=== PATIENT | female | born 1935 | race Caucasian/White ===

== ENCOUNTER 2019-11-28 08:53 | Outpatient (REF) | payer MEDICARE, SELFPAY ==
[2019-11-28 10:42] LABS: Alanine Aminotransferase 25 U/L (0-31); Albumin Level 4.2 g/dL (3.5-5.0); Alkaline Phosphatase 78 U/L (39-117); Anion Gap 12 (12-20); Aspartate Amino Transferase 22 U/L (5-31); Bilirubin Total 1.2 mg/dL (0.0-1.0); Blood Urea Nitrogen 13 mg/dL (9-16); Calcium 8.9 mg/dL (8.4-10.2); Carbon Dioxide 32 mmol/L (22-29); Chloride 104 mmol/L (96-108); Cholesterol 218 mg/dL; Estimated Glomerular Filt Rate > 60; Glucose Random 94 mg/dL (60-115); HDL Cholesterol 96 mg/dL; LDL Cholesterol Calculated 111 mg/dl; Potassium 3.8 mmol/l (3.3-5.1); Sodium 144 mmol/L (135-145); Total Protein 6.8 g/dL (6.5-8.0); Triglycerides 57 mg/dL
== END 2019-11-28 08:54 | disposition home or self-care (01) ==
LOC: HO.LAB 08:53
PROVIDERS: PCP Internal Medicine; Visit Provider Internal Medicine
DX: M81.0 Age-related osteoporosis without current pathological fracture (principal); E78.2 Mixed hyperlipidemia; E78.5 Hyperlipidemia, unspecified
CPT/HCPCS: 80053; 80061

== ENCOUNTER 2020-01-16 11:40 | Outpatient (REF) | payer MEDICARE, SELFPAY | END 2020-01-16 11:41 | disposition home or self-care (01) | LOC: HO.HMGCLDS 11:40 | PROVIDERS: PCP Internal Medicine; Visit Provider Internal Medicine | DX: Z20.828 Contact with and (suspected) exposure to other viral communicable diseases (principal) | CPT/HCPCS: C9803; U0003 ==

== ENCOUNTER → 2020-07-03 13:00 | Outpatient (BNVA) | payer MEDICARE, SELFPAY | PROVIDERS: Visit Provider Obstetrics & Gynecology ==

== ENCOUNTER 2020-09-02 11:42 | Outpatient (REF) | payer MEDICARE, SELFPAY ==
--- NOTE | ~2020-09-02 | XR_ITS ---
EXAMINATION: XR LUMBOSACRAL SPINE CLINICAL INFORMATION: Spondylosis without myelopathy or radiculopathy. COMPARISON: Lumbar spine 07/25/2018. TECHNIQUE: Three views of the lumbosacral spine. FINDINGS: There is normal lumbar lordosis. There are old compression fracture deformities L1 and T12 vertebra with cement augmentation. There is loss of L4 superior endplate height similar to previous study. No acute fractures seen. There is no lytic process. There is new loss of T11 vertebra, likely a new compression fracture. No lytic or sclerotic process seen. The sacrum is unremarkable. The paravertebral soft tissues are normal. XR/XR lumbar spine 2-3V IMPRESSION: Likely new T11 compression fracture. Correlate with bone scan. Loss of superior endplate L4 vertebral height is unchanged to old exam 2019. There is interval loss of T12 and L1 vertebral height with cement augmentation.
== END 2020-09-02 11:43 | disposition home or self-care (01) ==
LOC: HO.HMGCX 11:42
PROVIDERS: PCP Internal Medicine; Visit Provider Internal Medicine
DX: Z13.89 Encounter for screening for other disorder (principal)
CPT/HCPCS: 72100

== ENCOUNTER 2020-11-06 08:00 | Outpatient (REF) | payer MEDICARE, SELFPAY ==
[2020-11-06 11:39] LABS: Appearance Urine CLEAR; Color Urine YELLOW; Glucose Urine UA NEG (NEG); Leukocyte Esterase Urine NEG (NEG); Nitrite Urine NEG (NEG); Urine Blood NEG (NEG); Urine Ketones NEG (NEG); Urine Protein NEG (NEG-TRACE)
[2020-11-06 11:43] LABS: Hematocrit 39.2 % (37-47); Hemoglobin 13.1 g/dl (12.0-16.0); Mean Corpuscular HGB Conc 33.4 g/dl (31.0-35.0); Mean Corpuscular Hemoglobin 31.8 pg (27.0-33.0); Mean Corpuscular Volume 95.1 fL (80-98); Mean Platelet Volume 10.3 fL (9.4-12.3); Platelet Count 250 X10*3/uL (160-400); Red Blood Count 4.12 X10*6/uL (4.20-5.50); Red Cell Distribution Width 12.8 % (11.0-16.0); White Blood Count 5.6 X10*3/uL (4.8-10.8)
[2020-11-06 11:55] LABS: RBC Urine 0-2 /HPF (0); Squamous Epithelial Cell Urine 2+ /LPF
[2020-11-06 12:02] LABS: Alanine Aminotransferase 19 U/L (0-31); Albumin Level 4.2 g/dL (3.5-5.0); Alkaline Phosphatase 73 U/L (39-117); Anion Gap 13 (12-20); Aspartate Amino Transferase 23 U/L (5-31); Blood Urea Nitrogen 12 mg/dL (9-16); Calcium 8.6 mg/dL (8.4-10.2); Carbon Dioxide 27 mmol/L (22-29); Chloride 106 mmol/L (96-108); Cholesterol 203 mg/dL; Estimated Glomerular Filt Rate > 60; Glucose Fasting 88 mg/dL (60-99); HDL Cholesterol 87 mg/dL; LDL Cholesterol Calculated 101 mg/dl; Potassium 3.7 mmol/L (3.3-5.1); Sodium 142 mmol/L (135-145); Total Protein 6.8 g/dL (6.5-8.0); Triglycerides 75 mg/dL
[2020-11-06 12:23] LABS: Vitamin D 25-OH Total 45.1 ng/mL (>30)
== END 2020-11-06 08:01 | disposition home or self-care (01) ==
LOC: HO.HMGCLDS 08:00
PROVIDERS: PCP Internal Medicine; Visit Provider Internal Medicine
DX: E78.5 Hyperlipidemia, unspecified (principal); M80.88XA Other osteoporosis with current pathological fracture, vertebra(e), initial encounter for fracture
CPT/HCPCS: 36415; 80053; 80061; 81001; 82306; 85027

== ENCOUNTER 2020-12-17 08:18 | Outpatient (REF) | payer MEDICARE, SELFPAY ==
[2020-12-17 09:13] LABS: Albumin Level 4.1 g/dL (3.5-5.0); Anion Gap 13 (12-20); Blood Urea Nitrogen 13 mg/dL (9-16); Calcium 8.7 mg/dL (8.4-10.2); Carbon Dioxide 27 mmol/L (22-29); Chloride 106 mmol/L (96-108); Estimated Glomerular Filt Rate > 60; Glucose Random 93 mg/dL (60-115); Potassium 4.3 mmol/L (3.3-5.1); Sodium 142 mmol/L (135-145)
[2020-12-17 09:37] LABS: Vitamin D 25-OH Total 42.6 ng/mL (>30)
== END 2020-12-17 08:19 | disposition home or self-care (01) ==
LOC: HO.LAB 08:18
PROVIDERS: Visit Provider Internal Medicine Endocrinology, Diabetes & Metabolism
DX: M81.0 Age-related osteoporosis without current pathological fracture (principal)
CPT/HCPCS: 36415; 80048; 82040; 82306

== ENCOUNTER 2020-12-26 10:00 | Outpatient (RCR) | payer MEDICARE, SELFPAY ==
--- NOTE | 2020-12-04 12:22 | MHC.PT.EP ---
[facility] [place] [facility] [place] [facility] [place] [facility] [address] [place] Aceves [address] [phone] F: [phone] F: [phone] F: [phone] F: [phone] Physical Therapy Plan of Care Date of Evaluation: Date of Surgery: September 2020 Diagnosis: wedge compression fx Assessment: The patient arrived reporting pain in her mid and lower back since having 3 spinal fractures and 3 kyphoplasty's over the last 3 years. She has severe osteoporosis. She has poor sitting posture, and body mechanics. Poor postural muscle strength as well She is an excellent candidate for skilled PT to learn strategies to prevent further injury. She also would benefit from balance training to help reduce future fall risk. She may potentially benefit from a rollator walker in the community to help increase stability. Frequency and Duration: The patient will be seen 2x/week x 4 weeks. Short Term Goals: 1.Pt to able to demonstrate proper sitting posture with the use of a lumbar roll to decrease aggravating factors. 2.Pt to be able to demonstrate proper posture for common leisure activities such as phone/tablet use. 3.For the patient to demonstrate proper upright sitting posture with use of the lumbar roll to improve compliance and carryover. Informatics Consultant Goals: 1. Pt to show improved sitting and sleeping posture to avoid aggravating factors. 2. Pt to have improved neutral spine awareness to avoid further aggravation of pain. 3. Pt to be able to return demonstrate her HEP to improve compliance and carryover. Treatment Plan: Modalities to reduce pain, spasms and effusion. Manual therapy to restore motion and function. Therapeutic exercise to improve strength and flexibility. Neuromuscular re-education for posture and balance. Therapeutic activities to return to functional activities of daily living. Electronically signed by: Aimee Whelan PT DPT Please sign and return to therapist. Thank you for your referral.
== END 2020-12-28 08:00 | disposition home or self-care (01) ==
LOC: HO.PT 10:00
PROVIDERS: PCP Internal Medicine; Visit Provider Internal Medicine
DX: S22.000D Wedge compression fracture of unspecified thoracic vertebra, subsequent encounter for fracture with routine healing (principal)
CPT/HCPCS: 97110; 97112; 97162

== ENCOUNTER 2020-12-26 10:49 | Emergency (ER) | payer MEDICARE, SELFPAY ==
--- NOTE | 2020-12-26 | ECG_ITS ---
Test Reason : SYNCOPE Blood Pressure : / mmHG Vent. Rate : 090 BPM Atrial Rate : 090 BPM P-R Int : 150 ms QRS Dur : 082 ms QT Int : 368 ms P-R-T Axes : 054 -06 053 degrees QTc Int : 450 ms Normal sinus rhythm Nonspecific ST abnormality Lateral leads Abnormal ECG When compared with ECG of 19-JAN-2019 13:26, No significant change was found Referred By: Generic ED Physician Electronically Signed By:NICK JIMENEZ MD
--- NOTE | ~2020-12-26 | CT_ITS ---
EXAMINATION: CT HEAD WITHOUT CONTRAST CLINICAL INFORMATION: Dizziness COMPARISON: CT brain 01/19/2019 TECHNIQUE: Contiguous axial imaging was performed from the skull base to vertex without intravenous administration of contrast. This CT examination was performed using dose optimization techniques as appropriate, variously including the following: *Automated exposure control *Adjustment of mA and/or kV according to patient size (this includes techniques or standardized protocols for targeted exams where dose is matched to indication/reason for exam; i.e. extremities or head) *Use of iterative reconstruction technique DLP: 586 mGy-cm FINDINGS: There is no evidence of acute intracranial hemorrhage or territorial infarction. No abnormal mass effect or midline shift is seen. Koenig to white matter differentiation is well preserved. No extra-axial fluid collections are identified. The lateral ventricles are symmetrical but mildly enlarged. There is no abnormal attenuation within the brain parenchyma. The osseous structures and soft tissues are normal. The mastoid air cells and visualized portions of the paranasal sinuses are well aerated. CT/CT head/brain wo con IMPRESSION: No acute intracranial process seen.
--- NOTE | ~2020-12-26 | XR_ITS ---
EXAMINATION: XR CHEST CLINICAL INFORMATION: Dizziness. COMPARISON: None TECHNIQUE: 2 views of the chest were obtained. FINDINGS: The lungs are well-expanded and clear of acute process. There is increased patchy markings in the right middle lobe likely developing infiltrate, atelectasis or scarring. It is new since 01/19/2019 exam. Heart size and pulmonary vascularity is normal. There is mild acute compression deformity T11 vertebra. There is evidence of previous cement augmentation of T12, L1 and L2 vertebra.. XR/XR chest 2V IMPRESSION: Mild increase patchy opacity right lower lobe question developing infiltrate or atelectasis. There is new acute compression deformity T11 vertebra.
[2020-12-26 10:57] VITALS: BP 216/98; PULSE 89; RESP 17; TEMP 37.1; O2SAT 100; BMI 24.5
--- NOTE | 2020-12-26 11:45 | ED_ITS ---
HPI - General Adult General Chief complaint: Dizziness Stated complaint: high bp light headed Time Seen by Provider: 12/26/20 11:45 Source: patient Mode of arrival: other (From physical therapy) Limitations: no limitations History of Present Illness HPI narrative: 85-year-old female with past medical history of hyperlipidemia, DJD, compression fracture, osteoporosis was brought to emergency department by physical therapy. Patient was in her physical therapy session for her right hip and low back pain. During the exercise patient requested to stop as she was feeling weak and dizzy. When physical therapist checked her blood pressure it was 220 systolic. Patient was reporting to feel dizzy. Patient reports that when she woke up this morning she was feeling fine. Patient reports that she does not take anything for her blood pressure. Patient reports that she only takes citalopram and medication for her cholesterol. Patient reports that she was feeling fine this morning except for her usual aches and pains. Patient denies any chest pain, palpitation, presyncope or syncope. Patient does suffers from an anxiety and she reports that she is worry why is she feeling this way. Patient denies any symptoms of urinary frequency, pain with urination. Onset (ago): hour(s) (Hour and half ago) Location: back and pelvis Quality: aching Pain Consistency: constant Related Data Home Medications Medication Instructions Recorded Confirmed ibuprofen 600 mg tablet 600 mg PO Q8H PRN 12/01/19 09/02/20 lidocaine 5 % topical patch 1 patch TOPICAL DAILY 12/01/19 09/02/20 lorazepam 1 mg tablet 0 mg PO 12/01/19 09/02/20 Previous Rx's Medication Instructions Recorded atorvastatin 10 mg tablet 10 mg PO DAILY #90 tab 08/13/20 citalopram 10 mg tablet 5 mg PO DAILY #90 tab 12/16/20 Allergies Allergy/AdvReac Type Severity Reaction Status Date / Time diclofenac [From ARTHROTEC] Allergy Severe ANXIETY/WEA Verified 12/26/20 10:57 KNESS/CONFU JOSHUA misoprostol [From ARTHROTEC] Allergy Severe ANXIETY/WEA Verified 12/26/20 10:57 KNESS/CONFU JOSHUA sertraline [SERTRALINE] Allergy Severe ANXIETY/WEAKNESS/CONFUSION, Verified 12/26/20 10:57 dizziness tramadol [TRAMADOL] Allergy Severe ANXIETY/CON Verified 12/26/20 10:57 FUSION/WEAK NESS prednisone AdvReac Unknown psychosis Verified 12/26/20 10:57 Review of Systems Review of Systems: Constitutional : No Weight loss, No Fever, No Chills, No Night Sweats, No Fatigue, No Malaise ENT/Mouth : No Hearing loss, No Ear Pain, No Nasal Congestion, No Sinus Pain, No Hoarseness, No sore throat, No Rhinorrhea, No Swallowing Difficulty Eyes: No Eye Pain, No Swelling, No Redness, No Foreign Body, No Discharge, No Vision Changes Cardiovascular : No Chest Pain, No SOB, No Dyspnea on Exertion, No Orthopnea, No Edema, No Palpitations Respiratory : No Cough, No Sputum, No Wheezing, No Smoke Exposure, No Dyspnea Gastrointestinal : No Nausea, No Vomiting, No Diarrhea, No Constipation, No abdominal Pain, No Hematochezia, No Melena Genitourinary : no irregular bleeding, No Dysuria, No Urinary Frequency, No Hematuria, No Urinary Incontinence, No Urgency, No Flank Pain, No Urinary Flow Changes, No Hesitancy Musculoskeletal : joint pain, Myalgias, No Joint Swelling Skin : No Skin Lesions, No rash Neuro : No Weakness, No Numbness, No Paresthesias, No Loss of Consciousness, Dizziness, No Headache Psych : No Anxiety/Panic, No Depression, No SI/HI/AH/VH, No Social Issues, Yes all other systems are reviewed and are negative [facility] [place] Past Medical History Medical History Age related osteoporosis Compression fracture Depression DJD (degenerative joint disease), lumbar GERD (gastroesophageal reflux disease) Hyperlipemia Surgical History H/O kyphoplasty History of thyroid surgery History of total hip replacement Family History Family History Father CVD (cardiovascular disease) Heart disease Mother CVD (cardiovascular disease) Heart disease Maternal Grandfather No problems noted. Maternal Grandmother No problems noted. Paternal Grandfather No problems noted. Paternal Grandmother No problems noted. Brother No problems noted. Daughter No problems noted. Son No problems noted. Social History Social History Housing: House Alcohol intake: never Patient Tobacco Use Status: Never used Tobacco e-Cigarette/Vaping Use: Never Used Use of substances other than those prescribed or required for medical reasons: No Advance Directives: Yes Advance Directives on File: Yes Advance Directives Date on File: 07/03/20 Current occupational status: retired Sexual orientation: Straight/Heterosexual Gender identity: Female Physical Exam Vital Signs: Vital Signs: Last Vital Signs Temp 98.7 F 12/26/20 10:57 Pulse 81 12/26/20 14:03 Resp 18 12/26/20 14:03 BP 187/87 H 12/26/20 14:06 Pulse Ox 100 12/26/20 14:03 Body Mass Index 24.5 Const: General: healthy appearing, no acute distress and well developed Nutritional Appearance: well nourished Orientation/consciousness: patient oriented x3 HENMT: Head: Yes normal to inspection, Yes normocephalic and Yes atraumatic Ears: hearing grossly normal bilaterally, external ears normal and TM's normal bilaterally General nose exam: Normal external nose present and Normal nares present Face and sinus: Yes normal facial exam Mouth: Normal oral and palatal mucosa present Throat: Yes posterior oropharynx normal, Yes tonsils normal and Yes uvula midline Eyes: General: appearance normal, both eyes and all related structures Neck: Neck: Yes normal visual inspection, Yes full ROM and Yes trachea midline Thyroid: Thyroid normal Resp: Effort & Inspection: normal respiratory effort, able to speak in complete sentences, no tracheal deviation and symmetric chest movement Auscultation: clear to auscultation bilaterally Cardio: Jugular venous distension: no JVD Rate: regular rate Rhythm: regular rhythm Heart sounds: S1 normal heart sound present, S2 normal heart sound present, no gallops and no murmurs GI: Inspection: Yes normal to inspection and No distended Palpation (GI): Soft to palpation, not firm, nontender and No hepatosplenomegaly present Auscultation: normal bowel sounds : General: Yes no CVA tenderness Back/Spine/Pelvis: Back: no CVA tenderness Skin: General skin exam: elasticity normal, turgor normal and dry skin Neuro: General: patient oriented x3 Psych: Appearance: grossly normal Mental Status: mental status grossly normal Speech and movement: Normal speech and movement present Affect: normal affect Attitude: cooperative Thought process: Normal thought process present Thought content: Normal thought content present Insight: Good insight present (Psych) Judgement: Good judgement present (Psych) NIH Stroke Scale Internal: Initial- Upon Arrival Level of Consciousness: Alert Level of Consciousness Questions: Answers both questions correctly Level of Consciousness Commands: Performs both tasks correctly Best Gaze: Normal Visual: No visual loss Facial Palsy: Normal Motor Arm (Right): No drift Motor Arm (Left): No drift Motor Leg (Right): No drift Motor Leg (Left): No drift Limb Ataxia: Absent Sensory: Normal Best Language: No aphasia Dysarthia: Normal Extinction and Inattention: No abnormality Score: 0 Course Course Course Narrative: 85-year-old female with past medical history of hyperlipidemia, DJD, lumbar compression fracture, osteoporosis was brought to emergency department by physical therapist. Patient was having physical therapy when she began feeling weak, dizzy. Reported chest pressure. Therapy was stopped and her blood pressure at that time was 220 systolic. Patient reports that she woke up this morning feeling well with no symptoms. Patient drove herself to therapy. Patient denies any presyncope or syncope. Denies any chest pain, pressure, palpitation. Reports to be feeling weak and dizzy. Denies any headache, blurred vision, tingling. Patient is a Upper Sorbian speaking patient and she reports that she was trying to relate to the therapist that she was having pain in her right hip and lower back pain during the therapy. Patient denies any abdominal pain, urinary frequency or urgency. Denies any pain with urination. Patient reports that she has been having good appetite and has been drinking plenty fluids. Upon exam patient has negative NIH scale. EKG reviewed and normal sinus rhythm, rate 90, without ischemia. Patient is alert and oriented x3. Patient appears to be nervous. Will medicate her with lorazepam. Will do CT scan of the head, CBC, CMP, troponin, orthostatics vital signs. Reevaluation(s) Reevaluation #1: Lab work reviewed and negative for any acute findings. Tropon in 4.5, urinalysis normal, CT scan also negative for any acute findings. Reevaluation #2: Patient reports that she has been feeling better. Denies any dizziness, with improvement in her blood pressure without any medications. Patient medicated with ativan and reports to be feeling better. Medical Decision Making Lab Data Result diagrams: 12/26/20 12:07 12/26/20 12:07 Labs: Lab Results 12/26/20 12/26/20 12/26/20 Range/Units 12:07 12:07 12:07 WBC 5.8 (4.8-10.8) X10*3/uL RBC 4.17 L (4.20-5.50) X10*6/uL Hgb 13.2 (12.0-16.0) g/dl Hct 39.1 (37.0-47.0) % MCV 93.8 (80.0-98.0) fL MCH 31.7 (27.0-33.0) pg MCHC 33.8 (31.0-35.0) g/dl RDW 13.2 (11.0-16.0) % Plt Count 216 (160-400) X10*3/uL MPV 9.6 (9.4-12.3) fL Immature Gran % (Auto) 0.2 (0.0-0.4) % Neut % (Auto) 44.4 L (45-73) % Lymph % (Auto) 43.2 H (20-40) % [place] % (Auto) 8.1 (2-11) % Eos % (Auto) 3.6 (0-4) % Baso % (Auto) 0.5 (0-2) % Lymph # (Auto) 2.5 (1.2-4.9) X10*3/uL [place] # (Auto) 0.5 (0.1-1.2) X10*3/uL Eos # (Auto) 0.2 (0.0-0.4) X10*3/uL Baso # (Auto) 0.0 (0.0-0.2) X10*3/uL Abs Immat Gran (auto) 0.01 (0.00-0.03) X10*3/uL Absolute Neuts (auto) 2.6 (2.0-8.3) x10*3/uL Absolute Nucleated RBC 0.000 (0.0-0.012) X10*3/uL Nucleated RBC % (auto) 0.0 (0.0-0.2) /100WBC PT 10.9 (9.9-13.0) SEC INR 1.0 (0.9-1.1) Sodium 141 (135-145) mmol/L Potassium 3.6 (3.3-5.1) mmol/L Chloride 105 (96-108) mmol/L Carbon Dioxide 24 (22-29) mmol/L Anion Gap 16 (12-20) BUN 15 (9-16) mg/dL Creatinine 0.79 (0.5-1.4) mg/dL Estim Creat Clear Calc 43.7 Estimated GFR > 60 Random Glucose 88 (60-115) mg/dL Calcium 9.2 (8.4-10.2) mg/dL Total Bilirubin 1.0 (0.0-1.0) mg/dL AST 28 (5-31) U/L ALT 25 (0-31) U/L Alkaline Phosphatase 70 (39-117) U/L Troponin I High Sens (<3.5-17.0) ng/L Total Protein 7.0 (6.5-8.0) g/dL Albumin 4.3 (3.5-5.0) g/dL Urine Color Urine Appearance Urine pH (5.0-8.0) Ur Specific [place] (1.005-1.025) Urine Protein (NEG-TRACE) MG/DL Urine Glucose (UA) (NEG) MG/DL Urine Ketones (NEG) MG/DL Urine Blood (NEG) Urine Nitrite (NEG) Ur Leukocyte Esterase (NEG) Urine RBC (0) /HPF Urine WBC (0-4) /HPF Ur Squamous Epith Cells /LPF Urine Bacteria /LPF 12/26/20 12/26/20 Range/Units 12:07 12:22 WBC (4.8-10.8) X10*3/uL RBC (4.20-5.50) X10*6/uL Hgb (12.0-16.0) g/dl Hct (37.0-47.0) % MCV (80.0-98.0) fL MCH (27.0-33.0) pg MCHC (31.0-35.0) g/dl RDW (11.0-16.0) % Plt Count (160-400) X10*3/uL MPV (9.4-12.3) fL Immature Gran % (Auto) (0.0-0.4) % Neut % (Auto) (45-73) % Lymph % (Auto) (20-40) % [place] % (Auto) (2-11) % Eos % (Auto) (0-4) % Baso % (Auto) (0-2) % Lymph # (Auto) (1.2-4.9) X10*3/uL [place] # (Auto) (0.1-1.2) X10*3/uL Eos # (Auto) (0.0-0.4) X10*3/uL Baso # (Auto) (0.0-0.2) X10*3/uL Abs Immat Gran (auto) (0.00-0.03) X10*3/uL Absolute Neuts (auto) (2.0-8.3) x10*3/uL Absolute Nucleated RBC (0.0-0.012) X10*3/uL Nucleated RBC % (auto) (0.0-0.2) /100WBC PT (9.9-13.0) SEC INR (0.9-1.1) Sodium (135-145) mmol/L Potassium (3.3-5.1) mmol/L Chloride (96-108) mmol/L Carbon Dioxide (22-29) mmol/L Anion Gap (12-20) BUN (9-16) mg/dL Creatinine (0.5-1.4) mg/dL Estim Creat Clear Calc Estimated GFR Random Glucose (60-115) mg/dL Calcium (8.4-10.2) mg/dL Total Bilirubin (0.0-1.0) mg/dL AST (5-31) U/L ALT (0-31) U/L Alkaline Phosphatase (39-117) U/L Troponin I High Sens 4.5 (<3.5-17.0) ng/L Total Protein (6.5-8.0) g/dL Albumin (3.5-5.0) g/dL Urine Color STRAW Urine Appearance CLEAR Urine pH 7.0 (5.0-8.0) Ur Specific [place] <= 1.005 (1.005-1.025) Urine Protein NEG (NEG-TRACE) MG/DL Urine Glucose (UA) NEG (NEG) MG/DL Urine Ketones NEG (NEG) MG/DL Urine Blood NEG (NEG) Urine Nitrite NEG (NEG) Ur Leukocyte Esterase TRACE H (NEG) Urine RBC 0-2 (0) /HPF Urine WBC 0-2 (0-4) /HPF Ur Squamous Epith Cells 1+ /LPF Urine Bacteria NONE /LPF Imaging Data Chest x-ray: Attestation: I personally reviewed and interpreted this imaging study as follows: Radiologist's impression: FINDINGS: The lungs are well-expanded and clear of acute process. There is increased patchy markings in the right middle lobe likely developing infiltrate, atelectasis or scarring. It is new since 01/19/2019 exam. Heart size and pulmonary vascularity is normal. There is mild acute compression deformity T11 vertebra. There is evidence of previous cement augmentation of T12, L1 and L2 vertebra.. CT scan - head: Attestation: I personally reviewed and interpreted this imaging study as follows: Radiologist's impression: FINDINGS: There is no evidence of acute intracranial hemorrhage or territorial infarction. No abnormal mass effect or midline shift is seen. Koenig to white matter differentiation is well preserved. No extra-axial fluid collections are identified. The lateral ventricles are symmetrical but mildly enlarged. There is no abnormal attenuation within the brain parenchyma. The osseous structures and soft tissues are normal. The mastoid air cells and visualized portions of the paranasal sinuses are well aerated. Discharge Plan Discharge Clinical Impression: Hypertension Qualifiers: Hypertension type: unspecified Qualified Code(s): I10 - Essential (primary) hypertension Benign paroxysmal positional vertigo Qualifiers: Laterality: unspecified laterality Qualified Code(s): H81.10 - Benign paroxysmal vertigo, unspecified ear Patient Disposition: Home, Self-Care Instructions: Hypertension (ED) Additional Instructions: Widzielismy Ciebie dzisiaj michael w trakcie twojej fizjoterapii Czulas zawroty glowy i T woje cisnienie krwi bylo bardzo wysokie. Twoje cisnienie krwi theron jest wysokie na izbie prmarcelc. Francheskaontfloruaj sie z twoim lekarzem w celu kontrolowania cisnienia krkimi. [facility]cic na oddzial ratunkowy, jesli twoje objawy sie pog orsza lub jesli wystapia dodatkowe niepokojace objawy Prescriptions: No Action atorvastatin 10 mg tablet 10 mg PO DAILY Qty: 90 RF: 3 citalopram 10 mg tablet 5 mg PO DAILY Qty: 90 RF: 3 lidocaine 5 % adhesive patch,medicated 1 patch topical DAILY RF: 0 lorazepam 1 mg tablet 0 mg PO RF: 0 ibuprofen 600 mg tablet 600 mg PO Q8H PRNRF: 0 Referrals: Milady Miranda MD [Primary Care Provider] - 2 days Interventions: ED Discharge Assessment Last Done: 12/26/20 15:13 Discharge Date/Time: 12/26/20 15:25
[2020-12-26 12:15] LABS: MANUAL DIFF FLAG NO
[2020-12-26 12:17] LABS: Basophils Percent Auto 0.5 % (0-2); Eosinophils Absolute Auto 0.2 X10*3/uL (0.0-0.4); Eosinophils Percent Auto 3.6 % (0-4); Hematocrit 39.1 % (37.0-47.0); Hemoglobin 13.2 g/dl (12.0-16.0); Imm Gran Abs Auto 0.01 X10*3/uL (0.00-0.03); Imm Gran Pct Auto 0.2 % (0.0-0.4); Lymphocytes Absolute Auto 2.5 X10*3/uL (1.2-4.9); Lymphocytes Percent Auto 43.2 % (20-40); Mean Corpuscular HGB Conc 33.8 g/dl (31.0-35.0); Mean Corpuscular Hemoglobin 31.7 pg (27.0-33.0); Mean Corpuscular Volume 93.8 fL (80.0-98.0); Mean Platelet Volume 9.6 fL (9.4-12.3); Monocytes Absolute Auto 0.5 X10*3/uL (0.1-1.2); Monocytes Percent Auto 8.1 % (2-11); Neutrophils Absolute Auto 2.6 x10*3/uL (2.0-8.3); Neutrophils Percent Auto 44.4 % (45-73); Platelet Count 216 X10*3/uL (160-400); Red Blood Count 4.17 X10*6/uL (4.20-5.50); Red Cell Distribution Width 13.2 % (11.0-16.0); White Blood Count 5.8 X10*3/uL (4.8-10.8)
[2020-12-26 12:18] VITALS: BP 179/95; BP 181/89; PULSE 84; PULSE 85
[2020-12-26] MEDS: 0.9 % Sodium Chloride 500 ML IV (12:19)
[2020-12-26 12:21] VITALS: BP 182/99; PULSE 86
[2020-12-26 12:22] LABS: Prothrombin Time 10.9 SEC (9.9-13.0)
[2020-12-26 12:40] LABS: Appearance Urine CLEAR; Color Urine STRAW; Glucose Urine UA NEG (NEG); Leukocyte Esterase Urine TRACE (NEG); Nitrite Urine NEG (NEG); Specific Gravity - Urine <= 1.005 (1.005-1.025); UACC Culture Trigger YES; Urine Blood NEG (NEG); Urine Ketones NEG (NEG); Urine Protein NEG (NEG-TRACE)
[2020-12-26 12:53] LABS: Alanine Aminotransferase 25 U/L (0-31); Albumin Level 4.3 g/dL (3.5-5.0); Alkaline Phosphatase 70 U/L (39-117); Anion Gap 16 (12-20); Aspartate Amino Transferase 28 U/L (5-31); Blood Urea Nitrogen 15 mg/dL (9-16); Calcium 9.2 mg/dL (8.4-10.2); Carbon Dioxide 24 mmol/L (22-29); Chloride 105 mmol/L (96-108); Creatinine Clr Calc Pharmacy 43.7; Estimated Glomerular Filt Rate > 60; Glucose Random 88 mg/dL (60-115); Potassium 3.6 mmol/L (3.3-5.1); Sodium 141 mmol/L (135-145)
[2020-12-26 12:58] LABS: Troponin-I High Sensitivity 4.5 ng/L (<3.5-17.0)
[2020-12-26] MEDS: LORazepam 0.5 MG TABLET PO (13:10)
[2020-12-26 13:51] LABS: RBC Urine 0-2 /HPF (0); Squamous Epithelial Cell Urine 1+ /LPF; WBC Urine 0-2 /HPF (0-4)
[2020-12-26 14:03] VITALS: BP 204/97; PULSE 81; RESP 18; O2SAT 100
[2020-12-26 14:06] VITALS: BP 187/87
== END 2020-12-26 15:25 | disposition home or self-care (01) ==
PROVIDERS: Nurse Practitioner Family; Emergency Provider Emergency Medicine Emergency Medical Services; PCP Internal Medicine
DX: I10 Essential (primary) hypertension (principal); H81.10 Benign paroxysmal vertigo, unspecified ear; M54.50 Low back pain, unspecified; M25.551 Pain in right hip; E78.5 Hyperlipidemia, unspecified
CPT/HCPCS: 36415; 70450; 71046; 80053; 81001; 84484; 85025; 85610; 87086; 93005; 96360; 99284; 99285

== ENCOUNTER 2021-05-24 05:39 | Emergency (ER) | payer MEDICARE, SELFPAY ==
--- NOTE | ~2021-05-24 | XR_ITS ---
EXAMINATION: XR BILATERAL HIPS WITH AP PELVIS CLINICAL INFORMATION: Fall. Pain. COMPARISON: None TECHNIQUE: AP view of the pelvis and two views of each hip were obtained. FINDINGS: Right total hip arthroplasty. Components in expected positions. No acute fracture or dislocation. Left femoral head is spherical. Small femoral collar and acetabular marginal osteophytes on the left. Pelvic ring intact. Mild bilateral sacroiliac arthrosis. Paraspinal soft tissues unremarkable. XR/XR hip BI w PEL1V IMPRESSION: No acute fracture, dislocation, evidence of hardware failure or complication.
--- NOTE | ~2021-05-24 | XR_ITS ---
EXAMINATION: XR LUMBOSACRAL SPINE CLINICAL INFORMATION: Fall with pain COMPARISON: September 02, 2020 TECHNIQUE: Three views of the lumbosacral spine. FINDINGS: There are old compression fractures involving T12, L1, and L2 with cement augmentation. There is mild scoliosis convex left. There is a superior endplate compression fracture of L4 with approximately 30% loss of height within the mid vertebral body. This was present on previous study of September 02, 2020. There is an approximately 60% loss of height which compression fracture of T11. This was present on study of September 02, 2020. No definite acute fracture is appreciated. Bilateral facet arthropathy is seen L3-S1. No significant spondylolisthesis identified. XR/XR lumbar spine 2-3V IMPRESSION: Multiple stable compression fractures of the lower thoracic spine and lumbar spine. No acute fracture appreciated.
--- NOTE | ~2021-05-24 | CT_ITS ---
EXAMINATION: CT CERVICAL SPINE WITHOUT CONTRAST CLINICAL INFORMATION: Fall with pain COMPARISON: March 30, 2018 TECHNIQUE: CT cervical spine without IV or intrathecal contrast. Coronal and sagittal reconstructions. This CT examination was performed using dose optimization techniques as appropriate, variously including the following: *Automated exposure control *Adjustment of mA and/or kV according to patient size (this includes techniques or standardized protocols for targeted exams where dose is matched to indication/reason for exam; i.e. extremities or head) *Use of iterative reconstruction technique DLP: 294.21 mGy-cm FINDINGS: No abnormal prevertebral soft tissue swelling. Paraspinal muscle fat planes intact. No acute cervical spine fracture is noted. Nodular thyroid gland is present. Calcified granuloma versus broncholith seen within the left upper lobe. Pterygoid plates intact. No significant abnormality of the temporomandibular joints identified. There is degenerative disc disease with some disc space narrowing and endplate irregularity at the C3-C4, C5-C6, and C6-C7 levels. No significant neural foraminal encroachment is seen with mild spurring of the joints of [place] at the C5-C6 and C6-C7 levels bilaterally. CT/CT cervical spine wo con IMPRESSION: No acute cervical spine fracture. Cervical spondylosis as described. Nodular thyroid gland.
--- NOTE | ~2021-05-24 | CT_ITS ---
EXAMINATION: CT HEAD WITHOUT CONTRAST CLINICAL INFORMATION: Fall with headache COMPARISON: December 26, 2020 TECHNIQUE: Contiguous axial imaging was performed from the skull base to vertex without intravenous administration of contrast. This CT examination was performed using dose optimization techniques as appropriate, variously including the following: *Automated exposure control *Adjustment of mA and/or kV according to patient size (this includes techniques or standardized protocols for targeted exams where dose is matched to indication/reason for exam; i.e. extremities or head) *Use of iterative reconstruction technique DLP: 627.09 mGy-cm FINDINGS: There is no evidence of acute intracranial hemorrhage or territorial infarction. No abnormal mass effect or midline shift is seen. Ko[place] to white matter differentiation is well preserved. No extra-axial fluid collections are identified. Mild prominence of ventricles, sulci, and cisterns. There is some periventricular white matter low density seen consistent with microangiopathy. The osseous structures and soft tissues are normal. The mastoid air cells and visualized portions of the paranasal sinuses are well aerated. Small mucous retention cyst seen within the left maxillary sinus. CT/CT head/brain wo con IMPRESSION: No acute intracranial pathology. 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
[2021-05-24 05:57] VITALS: BP 139/52; PULSE 92; RESP 16; TEMP 36.4; O2SAT 99; BMI 24.7
[2021-05-24 06:39] VITALS: PULSE 79; RESP 16; O2SAT 96
--- NOTE | 2021-05-24 06:42 | ED_ITS ---
HPI - Fall General Chief Complaint: Extremity Injury, Lower Stated Complaint: Fall/Hip pain Time Seen by Provider: 05/24/21 05:54 Source: patient Mode of arrival: ambulatory Limitations: no limitations History of Present Illness MD complaint: fall Onset (ago): day(s) (2) Fall from: out of bed Fall witnessed: no Place fall occurred: home Loss of consciousness: unsure Prolonged down time: no Symptoms prior to fall: other (woke up on floot cannot remember) Context: recent illness (had not been feeling well prior to this due to recent gum surgery) Location of injury: head and pelvis Severity: mild Quality: dull and aching Associated symptoms (after fall): headache Related Data Home Medications Medication Instructions Recorded Confirmed ibuprofen 600 mg tablet 600 mg PO Q8H PRN 12/01/19 05/24/21 lidocaine 5 % topical patch 1 patch TOPICAL DAILY 12/01/19 05/24/21 amoxicillin 500 mg capsule 4 cap PO ONCE 05/24/21 05/24/21 hydrocodone 5 mg-acetaminophen 325 1 tab PO Q6H PRN 05/24/21 05/24/21 mg tablet Previous Rx's Medication Instructions Recorded atorvastatin 10 mg tablet 10 mg PO DAILY #90 tab 08/13/20 citalopram 10 mg tablet 5 mg PO DAILY #90 tab 12/16/20 amlodipine 5 mg tablet 5 mg PO DAILY #90 tab 03/25/21 lidocaine 4 % topical patch 1 patch TOPICAL DAILY PRN #10 ea 05/24/21 Allergies Allergy/AdvReac Type Severity Reaction Status Date / Time diclofenac [From ARTHROTEC] Allergy Severe ANXIETY/WEA Verified 05/13/21 10:52 KNESS/CONFU JOSHUA misoprostol [From ARTHROTEC] Allergy Severe ANXIETY/WEA Verified 05/13/21 10:52 KNESS/CONFU JSOHUA sertraline [SERTRALINE] Allergy Severe ANXIETY/WEAKNESS/CONFUSION, Verified 05/13/21 10:52 dizziness tramadol [TRAMADOL] Allergy Severe ANXIETY/CON Verified 05/13/21 10:52 FUSION/WEAK NESS prednisone AdvReac Unknown psychosis Verified 05/13/21 10:52 Review of Systems Review of Systems: Constitutional : No Fever, No Chills ENT/Mouth : No Ear Pain, No Hoarseness, No sore throat Eyes: No Eye Pain, No Swelling, No Redness, No Foreign Body Cardiovascular : No Chest Pain, No SOB Respiratory : No Cough, No Dyspnea Gastrointestinal : No Nausea, No Vomiting, No Diarrhea, No abdominal Pain Genitourinary : No Dysuria, No Hematuria Musculoskeletal : positive joint pain, No Myalgias, No Joint Swelling Skin : No Skin lacerations, No rash Neuro : No Weakness, No Numbness, No Loss of Consciousness, No Dizziness, pos Headache Psych : No Anxiety/Panic, No Depression Heme/Lymph: no easy bruising, no Lymphadenopathy Endocrine : No Polyuria, No Polydipsia All other systems reviewed and are negative [facility] Past Medical History Attestation statement: The following information was validated with the patient. Medical History Age related osteoporosis Compression fracture Depression DJD (degenerative joint disease), lumbar GERD (gastroesophageal reflux disease) HTN (hypertension) Hyperlipemia Vitamin D deficiency Surgical History H/O kyphoplasty History of thyroid surgery History of total hip replacement Family History Family History Father CVD (cardiovascular disease) Heart disease Mother CVD (cardiovascular disease) Heart disease Maternal Grandfather No problems noted. Maternal Grandmother No problems noted. Paternal Grandfather No problems noted. Paternal Grandmother No problems noted. Brother No problems noted. Daughter No problems noted. Son No problems noted. Social History Social History Housing: House Alcohol intake: never Patient Tobacco Use Status: Never used Tobacco e-Cigarette/Vaping Use: Never Used Advance Directives: Yes Advance Directives on File: Yes Advance Directives Date on File: 07/03/20 Current occupational status: retired Sexual orientation: Straight/Heterosexual Gender identity: Female Cognitive needs: No Hearing needs: No Vision needs: No Physical Exam Vital Signs: Vital Signs: Last Vital Signs Temp 97.6 F 05/24/21 05:57 Pulse 79 05/24/21 06:39 Resp 16 05/24/21 06:39 BP 139/52 L 05/24/21 05:57 Pulse Ox 96 05/24/21 06:39 BMI result Body Mass Index 24.7 Appearance: Alert. Oriented X3. No acute distress. Eyes: Pupils equal, round and reactive to light. ENT: Pharynx normal. Neck: Normal inspection. Neck supple. CVS: Normal heart rate and rhythm. Pulses normal. Respiratory: No respiratory distress. Breath sounds normal. Abdomen: Soft and non-tender. Skin: Skin warm and dry. Normal skin color. Normal skin turgor. Extremities: No lower extremity edema. R hip upper above iliac crest c/o pain to palpiation no hematoma noted Neuro: Oriented X 3. No motor deficit. No sensory deficit. Course Course Course Narrative: negative workup at this time no acute findings, stable for DC will DC home with supportive care MDM - Fall MDM Narrative Medical decision making narrative: 86 yo female with hx of HTN, HLD, DJD, s/p R hip replacement states she was sleeping two nights ago and next thing she knows she was awake on the floor with R hip pain - she is not on blood thinners she notes her R hip is painful and she can use the walker but it hurts. She has a mild headache. Denies CP/SOB. At this time given age will obtain basic labs, EKG, CT head/cspine. Xrays of R hip and lumbar spine. She is refusing PO medications. Lab Data Result diagrams: 05/24/21 07:12 05/24/21 07:12 Labs: Lab Results 05/24/21 05/24/21 05/24/21 Range/Units 07:12 07:12 07:12 WBC 5.6 (4.8-10.8) X10*3/uL RBC 3.97 L (4.20-5.50) X10*6/uL Hgb 12.7 (12.0-16.0) g/dl Hct 37.2 (37.0-47.0) % MCV 93.7 (80.0-98.0) fL MCH 32.0 (27.0-33.0) pg MCHC 34.1 (31.0-35.0) g/dl RDW 12.8 (11.0-16.0) % Plt Count 191 (160-400) X10*3/uL MPV 9.7 (9.4-12.3) fL Immature Gran % (Auto) 0.2 (0.0-0.4) % Neut % (Auto) 61.3 (45-73) % Lymph % (Auto) 20.5 (20-40) % [place] % (Auto) 12.9 H (2-11) % Eos % (Auto) 4.7 H (0-4) % Baso % (Auto) 0.4 (0-2) % Lymph # (Auto) 1.1 L (1.2-4.9) X10*3/uL [place] # (Auto) 0.7 (0.1-1.2) X10*3/uL Eos # (Auto) 0.3 (0.0-0.4) X10*3/uL Baso # (Auto) 0.0 (0.0-0.2) X10*3/uL Abs Immat Gran (auto) 0.01 (0.00-0.03) X10*3/uL Absolute Neuts (auto) 3.4 (2.0-8.3) x10*3/uL Absolute Nucleated RBC 0.000 (0.0-0.012) X10*3/uL Nucleated RBC % (auto) 0.0 (0.0-0.2) /100WBC Sodium 142 (135-145) mmol/L Potassium 4.2 (3.3-5.1) mmol/L Chloride 106 (96-108) mmol/L Carbon Dioxide 25 (22-29) mmol/L Anion Gap 15 (12-20) BUN 12 (9-16) mg/dL Creatinine 0.72 (0.5-1.4) mg/dL Estim Creat Clear Calc 47.2 Estimated GFR > 60 Random Glucose 95 (60-115) mg/dL Calcium 9.6 (8.4-10.2) mg/dL Magnesium 2.0 (1.6-2.6) mg/dL Total Bilirubin 1.2 H (0.0-1.0) mg/dL Direct Bilirubin 0.4 (0.0-0.5) mg/dL AST 22 (5-31) U/L ALT 19 (0-31) U/L Alkaline Phosphatase 63 (39-117) U/L Total Creatine Kinase 90 (26-140) U/L Troponin I High Sens 3.7 (<3.5-17.0) ng/L Total Protein 6.7 (6.5-8.0) g/dL Albumin 4.0 (3.5-5.0) g/dL ECG Data Attestation: I personally reviewed and interpreted this ECG as follows: ECG interpretation date: 05/24/21 ECG interpretation time: 07:10 Interpretation: Rate: 76 Rhythm: NSR [place]: normal Normal P waves. Normal [place]. Normal QRS complex. poor R wave progression ST T wave : normal no LIZET qTC: normal prior studies: no acute ischemia The study has been interpreted contemporaneously by me. . Discharge Plan Discharge Clinical Impression: Fall Qualifiers: Encounter type: initial encounter Qualified Code(s): W19.XXXA - Unspecified fall, initial encounter Acute hip pain Qualifiers: Laterality: right Qualified Code(s): M25.551 - Pain in right hip Patient Disposition: Home, Self-Care Instructions: Arthralgia (ED), Fall Prevention (ED), Hip Pain (ED) Additional Instructions: return to ED for any worsening symptoms or concerns FINDINGS: There are old compression fractures involving T12, L1, and L2 with cement augmentation. There is mild scoliosis convex left. There is a superior endplate compression fracture of L4 with approximately 30% loss of height within the mid vertebral body. This was present on previous study of September 02, 2020. There is an approximately 60% loss of height which compression fracture of T11. This was present on study of September 02, 2020. No definite acute fracture is appreciated. Bilateral facet arthropathy is seen L3-S1. No significant spondylolisthesis identified. XR/XR lumbar spine 2-3V IMPRESSION: Multiple stable compression fractures of the lower thoracic spine and lumbar spine. ? No acute fracture appreciated. Right total hip arthroplasty. Components in expected positions. No acute fracture or dislocation. Left femoral head is spherical. Small femoral collar and acetabular marginal osteophytes on the left. Pelvic ring intact. Mild bilateral sacroiliac arthrosis. Paraspinal soft tissues unremarkable. XR/XR hip BI w PEL1V IMPRESSION: No acute fracture, dislocation, evidence of hardware failure or complication. Prescriptions: New lidocaine 4 % adhesive patch,medicated 1 patch topical DAILY PRN (Reason: pain) Qty: 10 0RF Rx Instructions: may leave on for up to 12 hrs No Action atorvastatin 10 mg tablet 10 mg PO DAILY Qty: 90 3RF citalopram 10 mg tablet 5 mg PO DAILY Qty: 90 3RF amlodipine 5 mg tablet 5 mg PO DAILY Qty: 90 3RF hydrocodone-acetaminophen 5-325 mg tablet 1 tab PO Q6H PRN (Reason: Pain) 0RF amoxicillin 500 mg capsule 4 cap PO ONCE 0RF lidocaine 5 % adhesive patch,medicated 1 patch topical DAILY 0RF ibuprofen 600 mg tablet 600 mg PO Q8H PRN (Reason: Pain) 0RF Referrals: Milady Miranda MD [Primary Care Provider] - 2 days
--- NOTE | 2021-05-24 06:42 | PC.NURSE ---
Addendum entered by Giovanni Harrison 05/24/21 07:00: percocet, not oxycodone Original Note: pt states she had a dental procedure recently where she had 2 implants on the right side of her mouth. pt was prescribed oxycodone for the pain. pt reports taking pain medication prior to bed 2 nights ago, and woke up on the ground, unsure of how she got on the ground. c/o generalized headache and rt hip pain , unable to tolerate weight bearing
--- NOTE | 2021-05-24 06:50 | ECG_ITS ---
Test Reason : FALL Blood Pressure : / mmHG Vent. Rate : 076 BPM Atrial Rate : 076 BPM P-R Int : 150 ms QRS Dur : 080 ms QT Int : 404 ms P-R-T Axes : 076 -04 060 degrees QTc Int : 454 ms Normal sinus rhythm Possible Anterior infarct , age undetermined Abnormal ECG When compared with ECG of 26-DEC-2020 11:25, No significant change was found Referred By: Arti Wiggins Electronically Signed By:Inocencio Mosquera
[2021-05-24 07:15] LABS: MANUAL DIFF FLAG NO
[2021-05-24 07:18] LABS: Basophils Percent Auto 0.4 % (0-2); Eosinophils Absolute Auto 0.3 X10*3/uL (0.0-0.4); Eosinophils Percent Auto 4.7 % (0-4); Hematocrit 37.2 % (37.0-47.0); Hemoglobin 12.7 g/dl (12.0-16.0); Imm Gran Abs Auto 0.01 X10*3/uL (0.00-0.03); Imm Gran Pct Auto 0.2 % (0.0-0.4); Lymphocytes Absolute Auto 1.1 X10*3/uL (1.2-4.9); Lymphocytes Percent Auto 20.5 % (20-40); Mean Corpuscular HGB Conc 34.1 g/dl (31.0-35.0); Mean Corpuscular Volume 93.7 fL (80.0-98.0); Mean Platelet Volume 9.7 fL (9.4-12.3); Monocytes Absolute Auto 0.7 X10*3/uL (0.1-1.2); Monocytes Percent Auto 12.9 % (2-11); Neutrophils Absolute Auto 3.4 x10*3/uL (2.0-8.3); Neutrophils Percent Auto 61.3 % (45-73); Platelet Count 191 X10*3/uL (160-400); Red Blood Count 3.97 X10*6/uL (4.20-5.50); Red Cell Distribution Width 12.8 % (11.0-16.0); White Blood Count 5.6 X10*3/uL (4.8-10.8)
[2021-05-24 07:38] LABS: Troponin-I High Sensitivity 3.7 ng/L (<3.5-17.0)
[2021-05-24 07:54] LABS: Alanine Aminotransferase 19 U/L (0-31); Alkaline Phosphatase 63 U/L (39-117); Anion Gap 15 (12-20); Aspartate Amino Transferase 22 U/L (5-31); Bilirubin Direct 0.4 mg/dL (0.0-0.5); Bilirubin Total 1.2 mg/dL (0.0-1.0); Blood Urea Nitrogen 12 mg/dL (9-16); Calcium 9.6 mg/dL (8.4-10.2); Carbon Dioxide 25 mmol/L (22-29); Chloride 106 mmol/L (96-108); Creatinine Clr Calc Pharmacy 47.2; Estimated Glomerular Filt Rate > 60; Glucose Random 95 mg/dL (60-115); Potassium 4.2 mmol/L (3.3-5.1); Sodium 142 mmol/L (135-145); Total Protein 6.7 g/dL (6.5-8.0)
== END 2021-05-24 08:56 | disposition home or self-care (01) ==
PROVIDERS: Emergency Provider Emergency Medicine; PCP Internal Medicine
DX: M25.551 Pain in right hip (principal); R51.9 Headache, unspecified; I10 Essential (primary) hypertension; Z91.81 History of falling; Z96.641 Presence of right artificial hip joint
CPT/HCPCS: 36415; 70450; 72100; 72125; 73521; 80048; 80076; 82550; 83735; 84484; 85025; 93005; 99284

== ENCOUNTER 2021-07-08 06:08 | Emergency (ER) | payer MEDICARE, SELFPAY ==
[2021-07-08] VITALS (9 sets, daily range): BP systolic 106–175; BP diastolic 61–97; PULSE 79–96; RESP 15–19; TEMP 36.5–37.2; O2SAT 92–100; BMI 24.5
--- NOTE | 2021-07-08 | ECG_ITS ---
Test Reason : CHEST PAIN Blood Pressure : / mmHG Vent. Rate : 087 BPM Atrial Rate : 087 BPM P-R Int : 160 ms QRS Dur : 080 ms QT Int : 374 ms P-R-T Axes : 063 006 046 degrees QTc Int : 450 ms Normal sinus rhythm Normal ECG When compared with ECG of 24-MAY-2021 06:57, No significant change was found Referred By: Generic ED Physician Electronically Signed By:SARATH JORDAN MD
--- NOTE | ~2021-07-08 | XR_ITS ---
EXAMINATION: XR CHEST CLINICAL INFORMATION: Chest pressure. COMPARISON: X-ray dated 12/26/2020. TECHNIQUE: Frontal view of the chest was obtained. FINDINGS: The cardiomediastinal silhouette is normal. Minimal patchy density in the right lower lung may be artifactually related to overlapping osseous and vascular structures versus subsegmental atelectasis. No consolidative airspace opacities are otherwise seen. There is chronic blunting of the right costophrenic sulcus. Evidence of prior vertebral body augmentation again noted. No acute osseous abnormality is otherwise seen. There are mid thoracic compression fracture deformities as well, better seen on the prior study. XR/XR chest 1V IMPRESSION: Minimal hazy density in the right lower lung which may be artifactual or reflect subsegmental atelectasis. Blunting of the right costophrenic sulcus which was evident on prior imaging and appears chronic, possibly due to pleural thickening or a trace effusion. Prior vertebral body augmentation. Additional midthoracic compression fractures better assessed on prior imaging. The possibility of a new thoracic vertebral body compression fracture cannot be ruled out on the basis of this limited AP portable examination.
--- NOTE | ~2021-07-08 | CT_ITS ---
EXAMINATION: CT LUMBAR SPINE WITHOUT CONTRAST CLINICAL INFORMATION: Low back pain. COMPARISON: MRI dated 06/06/2021. TECHNIQUE: Multidetector helical imaging acquired in the axial plane with generation of reformatted acquisitions. This CT examination was performed using dose optimization techniques as appropriate, variously including the following: *Automated exposure control *Adjustment of mA and/or kV according to patient size (this includes techniques or standardized protocols for targeted exams where dose is matched to indication/reason for exam; i.e. extremities or head) *Use of iterative reconstruction technique DLP; 352 mGy-cm FINDINGS: The patient is status post previous vertebral body augmentation with chronic compression fracture deformities at the T12, L1, and L2 levels. Chronic bony retropulsion again evident at the L1 level distorting the ventral thecal sac. Multilevel vacuum disc phenomenon noted. There is a severe chronic compression deformity which was also seen on prior MR imaging at the T11 level. An additional [id number] chronic superior endplate compression fracture at the L4 level was also previously seen. Bony demineralization evident. No additional new compression fractures identified. There is a leftward curvature of the lumbar spine. Pseudoarticulation of L5 to the sacrum evident on the left side with moderate degenerative changes at the interface demonstrating marginal sclerosis and vacuum phenomenon. There is a mild anterolisthesis at the L3-L4 level which is stable. The paraspinal soft tissues appear normal. Multilevel degenerative disc disease and facet arthropathy present with mild central canal stenosis at the T12-L1 level. Mild central canal stenosis also evident at the L1-L2 level. There is [id number] central canal stenosis at the L3-L4 level. Multilevel foraminal narrowing is unchanged, most significant on the left side at the L4-L5 and L5-S1 levels. Chronic arachnoid adhesions within empty-appearing thecal sac evident on the prior MRI study at the L5-S1 levels. There are subsegmental atelectatic changes at the lung bases. Heterogeneous sclerosis in the right aspect of the sacrum is presumably due to the chronic sequelae of a prior right sacral insufficiency fracture, seen on the previous MRI exam. CT/CT lumbar spine wo con IMPRESSION: Relatively stable multilevel compression fractures, scoliotic curvature, and moderate spondylosis, status post vertebral body augmentation at the T12, L1, and L2 levels. Heterogeneous sclerosis in the right sacral ala at the site of a previously seen insufficiency fracture on the MR study from 06/06/2021.
--- NOTE | 2021-07-08 06:38 | ED.CHESTPAIN ---
HPI - Chest Pain General Chief Complaint: General Medical Stated Complaint: Multiple Complants Time Seen by Provider: 07/08/21 06:37 Source: patient Mode of arrival: EMS Limitations: no limitations History of Present Illness HPI narrative: 86 yo female hx of compression fractures, HTN, HLD, osteoporosis - MRI in may R sacral ala insufficiency fracture diffuse neuraforaminal stenosis L 1- S1 comes in with 6 weeks of low back pain mostly on L, then developed vague dull chest pressure last night with some mild shortness of breath. Taking motrin for back pain with no relief. Back pain made worse with walking. No b/b incontinence no saddle anesthesia no new trauma. Pain radiates left back down to left leg - has known disc disease and left sided neuroforaminal stenosis with L 5 nerve root compression on MRI 06/06 MD complaint: chest pain (low back pain on left side) Onset (ago): week(s) (6 weeks back pain, chest pressure last night before bed) Timing of current episode: constant Prior episodes: Yes Onset: during rest and during exertion Pain location: substernal Pain radiation: none Severity: mild Quality: heaviness Relieving factors: nothing Exacerbating factors: exertion (back pain worse with walking, chest pain is just there) Associated symptoms: dyspnea Treatment prior to arrival: other (motrin) Related Data Home Medications Medication Instructions Recorded Confirmed cholecalciferol (vitamin D3) 25 25 mcg PO DAILY 07/08/21 07/08/21 mcg (1,000 unit) tablet ibuprofen 200 mg tablet 400 mg PO Q6H PRN 07/08/21 07/08/21 clrjusrmzykt-bsfijmua-epprhx tablet 1 tab PO DAILY 07/08/21 07/08/21 Previous Rx's Medication Instructions Recorded atorvastatin 10 mg tablet 10 mg PO DAILY #90 tab 08/13/20 citalopram 10 mg tablet 5 mg PO DAILY #90 tab 12/16/20 amlodipine 5 mg tablet 5 mg PO DAILY #90 tab 03/25/21 lidocaine 4 % topical patch 1 patch TOPICAL DAILY PRN #10 ea 05/24/21 lidocaine 5 % topical patch 1 patch TOPICAL DAILY #30 ea 07/08/21 Allergies Allergy/AdvReac Type Severity Reaction Status Date / Time diclofenac [From ARTHROTEC] Allergy Severe ANXIETY/WEA Verified 06/05/21 14:46 KNESS/CONFU JOSHUA misoprostol [From ARTHROTEC] Allergy Severe ANXIETY/WEA Verified 06/05/21 14:46 KNESS/CONFU JOSHUA sertraline [SERTRALINE] Allergy Severe ANXIETY/WEAKNESS/CONFUSION, Verified 06/05/21 14:46 dizziness tramadol [TRAMADOL] Allergy Severe ANXIETY/CON Verified 06/05/21 14:46 FUSION/WEAK NESS prednisone AdvReac Unknown psychosis Verified 06/05/21 14:46 Review of Systems Review of Systems: Constitutional : No Weight loss, No Fever, No Chills, ENT/Mouth : No Hearing loss, No Ear Pain, No Nasal Congestion, No Sinus Pain, No Hoarseness, No sore throat, No Rhinorrhea, No Swallowing Difficulty Cardiovascular : pos Chest Pain, pos SOB Respiratory : No Cough, No Dyspnea Gastrointestinal : No Nausea, No Vomiting, No Diarrhea, No abdominal Pain, No Hematochezia, No Melena Genitourinary : No Dysuria, No Urinary Frequency, No Hematuria, No Urinary Incontinence, Musculoskeletal : positive back pain Skin : No Skin Lesions, No rash Neuro : No Weakness, No Numbness, No Paresthesias, no loss of bowel or bladder incontinence, no saddle anesthesia All other systems reviewed and are negative PMFSH Past Medical History Attestation statement: The following information was validated with the patient. Medical History Acute right hip pain Age related osteoporosis Compression deformity of vertebra Compression fracture Depression DJD (degenerative joint disease), lumbar GERD (gastroesophageal reflux disease) HTN (hypertension) Hyperlipemia Status post fall Vitamin D deficiency Surgical History H/O kyphoplasty History of thyroid surgery History of total hip replacement Family History Family History Father CVD (cardiovascular disease) Heart disease Mother CVD (cardiovascular disease) Heart disease Maternal Grandfather No problems noted. Maternal Grandmother No problems noted. Paternal Grandfather No problems noted. Paternal Grandmother No problems noted. Brother No problems noted. Daughter No problems noted. Son No problems noted. Social History Social History Housing: House Alcohol intake: never Patient Tobacco Use Status: Never used Tobacco e-Cigarette/Vaping Use: Never Used Advance Directives: Yes Advance Directives on File: Yes Advance Directives Date on File: 07/08/21 Current occupational status: retired Sexual orientation: Straight/Heterosexual Gender identity: Female Cognitive needs: No Hearing needs: No Vision needs: No Physical Exam Vital Signs: Vital Signs: Last Vital Signs Temp 97.9 F 07/08/21 16:00 Pulse 86 07/08/21 16:00 Resp 16 07/08/21 16:00 BP 163/79 H 07/08/21 16:00 Pulse Ox 97 07/08/21 16:00 BMI result Body Mass Index 24.5 Appearance: Alert. Oriented X3. No acute distress. Eyes: Pupils equal, round and reactive to light. ENT: Pharynx normal. Neck: Normal inspection. Neck supple. CVS: Normal heart rate and rhythm. Pulses normal. Respiratory: No respiratory distress. Breath sounds normal. Abdomen: Soft and nontender. Back: ttp along left lower lumbar ttp Skin: Skin warm and dry. Normal skin color. Normal skin turgor. Extremities: No lower extremity edema. No calf ttp Neuro: Oriented X 3. No motor deficit. No sensory deficit. Course Course Course Narrative: no new fractures - sacral insufficiency fracture healing two trop flat x 2 with atypical chest pain and symptoms > 6 hours, feels better with oral oxycodone stable for DC at this time long discussion with daughter about pain control - discussed CT scan done today showing healing R sacral insufficiency fracture, also symptoms consistent with prior MRI 06/06 which was reviewed by the patient's pain management doctor showing foraminal stenosis and compression of L5 nerve root, patient should see pain management given her intolerance of medications - she has an orthopedic doctor she sees and a pain management doctor she sees so she has options for non narcotics and possible surgical interventions. patient now states that she cannot manage with this pain, she is moving her legs up and down without issue in the bed. Will offer PT/CM to assess her mobility. Up and to the bathroom with walker. Patient placed in physician observation at 1124am. The indication for observation is that the patient needs more time for CM to assist with STR placement given concerns of back pain pain med use and concerns for falls at home. At this time the patient is well developed well nourished, lungs clear, CV RRR, abd nontender, neuro is intact. Patient prefers [facility]. Physician observation ended at 7pm. Patient seen and cleared by PT/CM. Plan is to follow up as outpatient.. NAD, lungs clear, CV RRR, Abd nontender, Neuro intact. Disposition is for [facility] sent with oxycodone Rx MDM - Chest Pain MDM Narrative Medical decision making narrative: 86 yo female hx of compression fractures, HTN, HLD, osteoporosis - MRI in may R sacral ala insufficiency fracture diffuse neuraforaminal stenosis L 1- S1 comes in with low back pain but no CE symptoms not responding to motrin will obtain CT lumbar spine PO oxycodone. At this time also c/o mild chest pressure will obtain EKG and troponin x 2, has no hypoxia or signs of DVT it is not pleuritic to suggest PE. Lab Data Result diagrams: 07/08/21 06:41 07/08/21 06:41 Labs: Lab Results 07/08/21 07/08/21 07/08/21 Range/Units 06:41 06:41 06:41 WBC 5.2 (4.8-10.8) X10*3/uL RBC 3.82 L (4.20-5.50) X10*6/uL Hgb 12.1 (12.0-16.0) g/dl Hct 35.7 L (37.0-47.0) % MCV 93.5 (80.0-98.0) fL MCH 31.7 (27.0-33.0) pg MCHC 33.9 (31.0-35.0) g/dl RDW 13.3 (11.0-16.0) % Plt Count 256 D (160-400) X10*3/uL MPV 9.3 L (9.4-12.3) fL Immature Gran % (Auto) 0.2 (0.0-0.4) % Neut % (Auto) 52.5 (45-73) % Lymph % (Auto) 28.6 (20-40) % [place] % (Auto) 10.8 (2-11) % Eos % (Auto) 7.3 H (0-4) % Baso % (Auto) 0.6 (0-2) % Lymph # (Auto) 1.5 (1.2-4.9) X10*3/uL [place] # (Auto) 0.6 (0.1-1.2) X10*3/uL Eos # (Auto) 0.4 (0.0-0.4) X10*3/uL Baso # (Auto) 0.0 (0.0-0.2) X10*3/uL Abs Immat Gran (auto) 0.01 (0.00-0.03) X10*3/uL Absolute Neuts (auto) 2.7 (2.0-8.3) x10*3/uL Absolute Nucleated RBC 0.000 (0.0-0.012) X10*3/uL Nucleated RBC % (auto) 0.0 (0.0-0.2) /100WBC Sodium 141 (135-145) mmol/L Potassium 4.2 (3.3-5.1) mmol/L Chloride 108 (96-108) mmol/L Carbon Dioxide 24 (22-29) mmol/L Anion Gap 13 (12-20) BUN 15 (9-16) mg/dL Creatinine 0.77 (0.5-1.4) mg/dL Estim Creat Clear Calc 44.0 Estimated GFR > 60 Random Glucose 98 (60-115) mg/dL Calcium 9.1 (8.4-10.2) mg/dL Total Bilirubin 0.8 (0.0-1.0) mg/dL AST 24 (5-31) U/L ALT 20 (0-31) U/L Alkaline Phosphatase 110 D (39-117) U/L Troponin I High Sens 3.6 (<3.5-17.0) ng/L Total Protein 6.8 (6.5-8.0) g/dL Albumin 4.0 (3.5-5.0) g/dL Urine Color Urine Appearance Urine pH (5.0-8.0) Ur Specific [place] (1.005-1.025) Urine Protein (NEG-TRACE) MG/DL Urine Glucose (UA) (NEG) MG/DL Urine Ketones (NEG) MG/DL Urine Blood (NEG) Urine Nitrite (NEG) Ur Leukocyte Esterase (NEG) COVID-19 (EDGAR) (Negative) COVID-19 Clin Com 05/31/22 05/31/22 05/31/22 Range/Units 08:41 08:41 10:27 WBC (4.8-10.8) X10*3/uL RBC (4.20-5.50) X10*6/uL Hgb (12.0-16.0) g/dl Hct (37.0-47.0) % MCV (80.0-98.0) fL MCH (27.0-33.0) pg MCHC (31.0-35.0) g/dl RDW (11.0-16.0) % Plt Count (160-400) X10*3/uL MPV (9.4-12.3) fL Immature Gran % (Auto) (0.0-0.4) % Neut % (Auto) (45-73) % Lymph % (Auto) (20-40) % [place] % (Auto) (2-11) % Eos % (Auto) (0-4) % Baso % (Auto) (0-2) % Lymph # (Auto) (1.2-4.9) X10*3/uL [place] # (Auto) (0.1-1.2) X10*3/uL Eos # (Auto) (0.0-0.4) X10*3/uL Baso # (Auto) (0.0-0.2) X10*3/uL Abs Immat Gran (auto) (0.00-0.03) X10*3/uL Absolute Neuts (auto) (2.0-8.3) x10*3/uL Absolute Nucleated RBC (0.0-0.012) X10*3/uL Nucleated RBC % (auto) (0.0-0.2) /100WBC Sodium (135-145) mmol/L Potassium (3.3-5.1) mmol/L Chloride (96-108) mmol/L Carbon Dioxide (22-29) mmol/L Anion Gap (12-20) BUN (9-16) mg/dL Creatinine (0.5-1.4) mg/dL Estim Creat Clear Calc Estimated GFR Random Glucose (60-115) mg/dL Calcium (8.4-10.2) mg/dL Total Bilirubin (0.0-1.0) mg/dL AST (5-31) U/L ALT (0-31) U/L Alkaline Phosphatase (39-117) U/L Troponin I High Sens < 3.5 (<3.5-17.0) ng/L Total Protein (6.5-8.0) g/dL Albumin (3.5-5.0) g/dL Urine Color STRAW Urine Appearance CLEAR Urine pH 7.0 (5.0-8.0) Ur Specific [place] <= 1.005 (1.005-1.025) Urine Protein NEG (NEG-TRACE) MG/DL Urine Glucose (UA) NEG (NEG) MG/DL Urine Ketones NEG (NEG) MG/DL Urine Blood NEG (NEG) Urine Nitrite NEG (NEG) Ur Leukocyte Esterase NEG (NEG) COVID-19 (EDGAR) Negative (Negative) COVID-19 Clin Com See Note ECG Data ECG #1: Attestation: I personally reviewed and interpreted this ECG as follows: ECG interpretation date: 07/08/21 ECG interpretation time: 06:38 Interpretation: Rate: 87 Rhythm: NSR [place]: normal Normal P waves. Normal [place]. Normal QRS complex. ST T wave : normal no acute ischemia qTC: normal prior studies: no acute ischemia The study has been interpreted contemporaneously by me. . Discharge Plan Discharge Clinical Impression: Lumbar back pain, Acute left lumbar radiculopathy Chest pain Qualifiers: Chest pain type: precordial pain Qualified Code(s): R07.2 - Precordial pain Patient Disposition: Still a Patient Instructions: Chest Pain (ED), Back Pain (ED) Additional Instructions: return to ED for any worsening symptoms or concerns you should follow up with both your orthopedic and pain management doctors as soon as possible pain today likely due to MRI findings on 06/06/21 - narrowing stenosis of the subarticular zones from T11-S1. Moderate severe neural foraminal stenosis L1-S1. Prominent left extraforaminal osteophyte complex at L5-S1 that abuts the exiting left L5 nerve root. TODAY'S CT scan: Relatively stable multilevel compression fractures, scoliotic curvature, and moderate spondylosis, status post vertebral body augmentation at the T12, L1, and L2 levels. Heterogeneous sclerosis in the right sacral ala at the site of a previously seen insufficiency fracture on the MR study from 06/06/2021. Prescriptions: New lidocaine 5 % adhesive patch,medicated 1 patch topical DAILY Qty: 30 0RF Rx Instructions: leave on most painful area for up to 12 hrs No [facility] atorvastatin 10 mg tablet 10 mg PO DAILY Qty: 90 3RF citalopram 10 mg tablet 5 mg PO DAILY Qty: 90 3RF amlodipine 5 mg tablet 5 mg PO DAILY Qty: 90 3RF lidocaine 4 % adhesive patch,medicated 1 patch topical DAILY PRN (Reason: pain) Qty: 10 0RF Rx Instructions: may leave on for up to 12 hrs Centrum Silver Tablet 1 tab PO DAILY 0RF cholecalciferol (vitamin D3) 25 mcg (1,000 unit) Tablet 25 mcg PO DAILY 0RF ibuprofen 200 mg Tablet 400 mg PO Q6H PRN (Reason: Pain) 0RF Referrals: [facility] [Outside] Physician,Unknown J [Physician] - 2 days (primary care doctor - follow up physical therapy but also referral to pain management clinic for other modalities)
[2021-07-08 06:45] LABS: MANUAL DIFF FLAG NO
[2021-07-08 06:49] LABS: Basophils Percent Auto 0.6 % (0-2); Eosinophils Absolute Auto 0.4 X10*3/uL (0.0-0.4); Eosinophils Percent Auto 7.3 % (0-4); Hematocrit 35.7 % (37.0-47.0); Hemoglobin 12.1 g/dl (12.0-16.0); Imm Gran Abs Auto 0.01 X10*3/uL (0.00-0.03); Imm Gran Pct Auto 0.2 % (0.0-0.4); Lymphocytes Absolute Auto 1.5 X10*3/uL (1.2-4.9); Lymphocytes Percent Auto 28.6 % (20-40); Mean Corpuscular HGB Conc 33.9 g/dl (31.0-35.0); Mean Corpuscular Hemoglobin 31.7 pg (27.0-33.0); Mean Corpuscular Volume 93.5 fL (80.0-98.0); Mean Platelet Volume 9.3 fL (9.4-12.3); Monocytes Absolute Auto 0.6 X10*3/uL (0.1-1.2); Monocytes Percent Auto 10.8 % (2-11); Neutrophils Absolute Auto 2.7 x10*3/uL (2.0-8.3); Neutrophils Percent Auto 52.5 % (45-73); Platelet Count 256 X10*3/uL (160-400); Red Blood Count 3.82 X10*6/uL (4.20-5.50); Red Cell Distribution Width 13.3 % (11.0-16.0); White Blood Count 5.2 X10*3/uL (4.8-10.8)
[2021-07-08] MEDS: Lidocaine 4 % Patch ADH..PATCH 1 PATCH TRANSDERMA (07:08)
[2021-07-08] MEDS: oxyCODONE HCl Immed Release 5 MG TABLET PO (07:08)
[2021-07-08] MEDS: Ondansetron ODT 4 MG TAB.RAPDIS TRANSLINGU (07:08)
[2021-07-08 07:12] LABS: Alanine Aminotransferase 20 U/L (0-31); Alkaline Phosphatase 110 U/L (39-117); Anion Gap 13 (12-20); Aspartate Amino Transferase 24 U/L (5-31); Bilirubin Total 0.8 mg/dL (0.0-1.0); Blood Urea Nitrogen 15 mg/dL (9-16); Calcium 9.1 mg/dL (8.4-10.2); Carbon Dioxide 24 mmol/L (22-29); Chloride 108 mmol/L (96-108); Estimated Glomerular Filt Rate > 60; Glucose Random 98 mg/dL (60-115); Potassium 4.2 mmol/L (3.3-5.1); Sodium 141 mmol/L (135-145); Total Protein 6.8 g/dL (6.5-8.0)
[2021-07-08 07:13] LABS: Troponin-I High Sensitivity 3.6 ng/L (<3.5-17.0)
--- NOTE | 2021-07-08 07:14 | PC.NURSE ---
medicated for low back pain radiating to r leg, sr on moniotr , no cp, steady gait w walker to bathroom, aware now that she needs ua
[2021-07-08 08:49] LABS: Appearance Urine CLEAR; Color Urine STRAW; Glucose Urine UA NEG (NEG); Leukocyte Esterase Urine NEG (NEG); Nitrite Urine NEG (NEG); Specific Gravity - Urine <= 1.005 (1.005-1.025); Urine Blood NEG (NEG); Urine Ketones NEG (NEG); Urine Protein NEG (NEG-TRACE)
[2021-07-08 09:16] LABS: Troponin-I High Sensitivity < 3.5 ng/L (<3.5-17.0)
--- NOTE | 2021-07-08 10:04 | PC.NURSE ---
pt does not feel capable of returning home, feels unsafe, md and case management informed , i spoke w the pt daughter and she is agreeable with the plan to do pt eval and look into additional services or snf placement
[2021-07-08] MEDS: Acetaminophen 325 MG TABLET 650 MG PO (10:17)
[2021-07-08 10:50] LABS: COVID-19 Test Negative (Negative); IDNOW Serial# 9DB6401D
--- NOTE | 2021-07-08 13:34 | PHA.MEDREC ---
Pharmacy Consult ? Medication Reconciliation Pharmacy has completed the medication reconciliation. Patient confirmed all medications. Audra Nichols, AustinD
--- NOTE | 2021-07-08 14:40 | MHC.CM.ED ---
Addendum entered by Apple Elias 07/08/21 16:14: [facility] doesn't have a bed to offer. [facility] does. Patient accepts bed at [facility]. Patient will have dinner here and then transfer to [facility] via BLS at 7pm. Patient, friend Carleen, and Dr Wiggins aware. Original Note: Received case management consult from Dr Wiggins. Patient came to ER due to back pain. Patient has history of multiple back issues. Patient has a PCP and has been seen by pain management. Physical therapy eval completed. Rehab is being recommended. Met with patient in regards to discharge planning. Patient lives alone, ambulates independently and had no services prior to coming to the hospital. PCP verified. Copy of HCP obtained from [facility]. Patient received 3 Pfizer vaccines. Patient has been to [facility] in the past and requested referral there. Referral made via [facility]. [facility] does not have a bed. [facility] and [facility] are able to offer beds. Patient is not interested in acute rehab because its too far for people to visit me . List of facilities provided from [facility]. Referral made to [facility] and [facility] via [facility] at patient's request. Patient's daughter, Libby is listed as 1st HCP. T/W spoek with Libby via telephone at [phone]. Libby states she is no longer the 1st HCP. Her brother Mathew is. Libby was still willing to speak with Case Management. T/W explained the difference of acute rehab and custodial facilities. Libby will discuss differences with patient. Ultimately patient will make her own decisions. Patient's primary language is Yoruba, but she does speak Liberian. Continue to monitor for d/c needs.
--- NOTE | 2021-07-08 18:59 | MHC.CM.ED ---
CM spoke with [facility]. They are unable to transport patient to [facility] until after 8 pm At least, could be later.. [facility] requests pt not arrive after 8 am. Pt aware. Pt is upset about transfer. CM explained that ambulances must transport emergencies first, before STR transports. Pt understands. [facility] booked for 8am 07/09/21 via telephone. CM to follow for d/c needs.
[2021-07-09] MEDS: Ketorolac Tromethamine 15 MG/ML VIAL IM (00:59)
[2021-07-09 01:01] VITALS: BP 133/73; PULSE 82; RESP 16; TEMP 36.8; O2SAT 97
[2021-07-09 04:42] VITALS: BP 154/71; PULSE 83; RESP 12; TEMP 37; O2SAT 97
--- NOTE | 2021-07-09 07:46 | MHC.CM.ED ---
Patient remains in ER. Plan is to transfer patient to [facility] via BLS at 8am. Patient, [facility] and [facility] aware. Continue to monitor for d/c needs.
[2021-07-09 07:51] VITALS: BP 154/78; PULSE 83; RESP 17; O2SAT 97
--- NOTE | 2021-07-09 07:57 | PC.NURSE ---
Report received from Dinora JIMENEZ. Patient reports feeling tired but comfortable. Alert and oriented. Respirations regular and even. Skin PWD. Plan is for patient to be discharged to [facility] this am at 8am. Patient is agreeable to plan. Will continue to monitor.
[2021-07-09] MEDS: Ketorolac Tromethamine 15 MG/ML VIAL IVPUSH (08:46)
--- NOTE | 2021-07-09 08:53 | PC.NURSE ---
Patient continues to feel uncomfortable, discussed with patient taking something to make transfer to [facility] more comfortable. Patient agreeable to a dose of Toradal. Medication given, IV removed, EMS here to transfer patient. Report given to Rodrigue at [facility] at this time.
== END 2021-07-09 08:57 | disposition skilled nursing facility (03) ==
PROVIDERS: Emergency Provider Emergency Medicine; PCP Internal Medicine
DX: R07.2 Precordial pain (principal); M54.16 Radiculopathy, lumbar region; M54.50 Low back pain, unspecified; Z20.822 Contact with and (suspected) exposure to COVID-19; R06.02 Shortness of breath; I10 Essential (primary) hypertension; E78.5 Hyperlipidemia, unspecified; M43.9 Deforming dorsopathy, unspecified
CPT/HCPCS: 36415; 71045; 72131; 80053; 81003; 84484; 85025; 87635; 93005; 96372; 96374; 97162; 99285; J1885

== ENCOUNTER 2021-09-17 05:58 | Outpatient (REF) | payer MEDICARE, SELFPAY ==
[2021-09-17 07:27] LABS: Hematocrit 39.7 % (37.0-47.0); Hemoglobin 13.3 g/dl (12.0-16.0); Mean Corpuscular HGB Conc 33.5 g/dl (31.0-35.0); Mean Corpuscular Hemoglobin 31.7 pg (27.0-33.0); Mean Corpuscular Volume 94.5 fL (80.0-98.0); Mean Platelet Volume 10.1 fL (9.4-12.3); Platelet Count 220 X10*3/uL (160-400); Red Cell Distribution Width 13.3 % (11.0-16.0); White Blood Count 6.9 X10*3/uL (4.8-10.8)
[2021-09-17 07:48] LABS: Alanine Aminotransferase 19 U/L (0-31); Albumin Level 4.3 g/dL (3.5-5.0); Alkaline Phosphatase 65 U/L (39-117); Anion Gap 15 (12-20); Aspartate Amino Transferase 22 U/L (5-31); Bilirubin Total 0.7 mg/dL (0.0-1.0); Blood Urea Nitrogen 14 mg/dL (9-16); Carbon Dioxide 28 mmol/L (22-29); Chloride 103 mmol/L (96-108); Cholesterol 195 mg/dL; Estimated Glomerular Filt Rate > 60; Glucose Fasting 89 mg/dL (60-99); HDL Cholesterol 81 mg/dL; LDL Cholesterol Calculated 103 mg/dl; Potassium 4.5 mmol/L (3.3-5.1); Sodium 141 mmol/L (135-145); Total Protein 6.9 g/dL (6.5-8.0); Triglycerides 57 mg/dL
[2021-09-17 08:08] LABS: Vitamin D 25-OH Total 56.3 ng/mL (>30)
== END 2021-09-17 05:59 | disposition home or self-care (01) ==
LOC: HO.LAB 05:58
PROVIDERS: PCP Internal Medicine; Visit Provider Internal Medicine
DX: I10 Essential (primary) hypertension (principal); E78.5 Hyperlipidemia, unspecified; E55.9 Vitamin D deficiency, unspecified; M81.0 Age-related osteoporosis without current pathological fracture
CPT/HCPCS: 36415; 80053; 80061; 82306; 85027

== ENCOUNTER 2021-12-05 10:03 | Outpatient (REF) | payer MEDICARE, SELFPAY ==
--- NOTE | ~2021-12-05 | MM_ITS ---
EXAMINATION: BONE DENSITOMETRY CLINICAL INDICATION: Age-related osteoporosis without current pathological fracture. COMPARISON: Previous BD dated 08/07/2019 and baseline BD dated 02/13/2005. TECHNIQUE: Using a Vive Unique DXA System (software version: 13.1) manufactured by [employer], dual-energy x-ray absorptiometry was performed of the lumbar spine and left hip. The images are of good technical quality. Summary results are attached. FINDINGS: AP SPINE L3-L4 (excluding L1 and L2): The data of L1-L4 has been changed to exclude the L1 and L2 vertebral bodies, because there is increased density related to previous kyphoplasty at these levels may cause overestimation of lumbar spine density. Current: BMD 0.960 g/cm2, Z-score 0.2, T-score -2.0, osteopenia, 15.5% increase from previous, 8.4% increase from baseline (<5% change is not significant). Prior: BMD 0.831 g/cm2. Baseline: BMD 0.886 g/cm2. LEFT FEMUR, NECK: Current: BMD 0.781 g/cm2, Z-score 0.7, T-score -1.9, osteopenia. Prior: BMD 0.768 g/cm2. Baseline: BMD 0.844 g/cm2. LEFT FEMUR, TOTAL: Current: BMD 0.754 g/cm2, Z-score 0.5, T-score -2.0, osteopenia, 2.2% decrease from previous, 13.3% decrease from baseline (<5% change is not significant). Prior: BMD 0.771 g/cm2. Baseline: BMD 0.870 g/cm2. IDENTIFIED RISK FACTORS: Height loss, history of fracture (adult), hyperthyroidism, osteoporosis, rheumatoid arthritis, secondary osteoporosis, menopause. HISTORY OF FRACTURE: Spine. MEDICATIONS: Calcium supplements or multivitamin, vitamin D, bisphosphonate. MM/XR DEXA axial skeleton IMPRESSION: 1. DIAGNOSIS: Osteopenia based on the lowest T-score value of -2.0 in the total femur and lumbar spine applying World Health Organization criteria. 2. 10-YEAR FRACTURE RISK PREDICTION, FRAX: Not performed in this patient on estrogen or bone building treatments. 3. Treatment Recommendations: NOF guidelines recommend consideration for treatment in postmenopausal women and men age 50 and older presenting with the following: -A hip or vertebral (clinical or morphometric) fracture. -T-score less than or equal to -2.5 at the femoral neck or spine after appropriate evaluation to exclude secondary causes. -Low bone mass at the hip or spine and a 10-year fracture probability by FRAX of greater than or equal to 3% for hip fracture or greater than or equal to 20% for major osteoporotic fracture based on the [place] adapted WHO algorithm. 4. Other Recommendations: All treatment decisions require clinical judgment and consideration of individual patient factors, including patient preferences, comorbidities, previous drug use, risk factors not captured in the FRAX model (e.g. frailty, falls, vitamin D deficiency, increased bone turnover, interval significant decline in bone density) and possible under or overestimation of fracture risk by FRAX. Additional medical evaluation for secondary cause of low bone mineral density may be appropriate. FUTURE SCAN RECOMMENDATION: People with diagnosed cases of osteoporosis or at high risk for fracture should have regular bone mineral density tests. For patients eligible for Medicare, routine testing is allowed once every 2 years. The testing frequency can be increased to one year for patients who have rapidly progressing disease, those who are receiving or discontinuing medical therapy to restore bone mass, or have additional risk factors.
== END 2021-12-05 10:04 | disposition home or self-care (01) ==
LOC: HO.MAMMO 10:03
PROVIDERS: Absent Provider Internal Medicine Endocrinology, Diabetes & Metabolism; Visit Provider Internal Medicine
DX: Z13.820 Encounter for screening for osteoporosis (principal); M81.0 Age-related osteoporosis without current pathological fracture; Z78.0 Asymptomatic menopausal state
CPT/HCPCS: 77080

== ENCOUNTER 2021-12-27 07:18 | Outpatient (REF) | payer MEDICARE, SELFPAY ==
[2021-12-27 08:40] LABS: Albumin Level 4.2 g/dL (3.5-5.0); Anion Gap 17 (12-20); Blood Urea Nitrogen 15 mg/dL (9-16); Calcium 9.2 mg/dL (8.4-10.2); Carbon Dioxide 28 mmol/L (22-29); Chloride 113 mmol/L (96-108); Estimated Glomerular Filt Rate > 60; Glucose Random 87 mg/dL (60-115); Potassium 4.6 mmol/L (3.3-5.1); Sodium 153 mmol/L (135-145); TSH reflex Free T4 1.57 uIU/mL (0.32-4.0); Vitamin D 25-OH Total 57.5 ng/mL (>30)
== END 2021-12-27 07:19 | disposition home or self-care (01) ==
LOC: HO.LAB 07:18
PROVIDERS: PCP Internal Medicine; Visit Provider Internal Medicine Endocrinology, Diabetes & Metabolism
DX: M81.0 Age-related osteoporosis without current pathological fracture (principal)
CPT/HCPCS: 36415; 80048; 82040; 82306; 84443

== ENCOUNTER 2022-03-05 14:30 | Outpatient (REF) | payer MEDICARE, SELFPAY ==
[2022-03-05 15:57] LABS: Albumin Level 4.1 g/dL (3.5-5.0); Anion Gap 11 (12-20); Blood Urea Nitrogen 18 mg/dL (9-16); Calcium 9.3 mg/dL (8.4-10.2); Carbon Dioxide 29 mmol/L (22-29); Chloride 104 mmol/L (96-108); Estimated Glomerular Filt Rate 58; Glucose Random 100 mg/dL (60-115); Potassium 4.4 mmol/L (3.3-5.1); Sodium 140 mmol/L (135-145)
[2022-03-05 16:22] LABS: Vitamin D 25-OH Total 44.3 ng/mL (>30)
== END 2022-03-05 14:31 | disposition home or self-care (01) ==
LOC: HO.LAB 14:30
PROVIDERS: PCP Internal Medicine; Visit Provider Internal Medicine Endocrinology, Diabetes & Metabolism
DX: E55.9 Vitamin D deficiency, unspecified (principal); E78.5 Hyperlipidemia, unspecified; I10 Essential (primary) hypertension; M81.0 Age-related osteoporosis without current pathological fracture
CPT/HCPCS: 36415; 80048; 82040; 82306

== ENCOUNTER → 2022-06-30 08:55 | Outpatient (BNVA) | payer MEDICARE, SELFPAY | PROVIDERS: PCP Internal Medicine; Visit Provider Advanced Practice Midwife ==

== ENCOUNTER 2023-03-22 10:48 | Outpatient (REF) | payer MEDICARE, SELFPAY ==
[2023-03-22 12:08] VITALS: BP 180/93; PULSE 85; RESP 16; TEMP 36.4; O2SAT 96
[2023-03-22 13:52] VITALS: BMI 29.3
== END 2023-03-22 10:49 | disposition home or self-care (01) ==
LOC: HO.MS 10:48
PROVIDERS: PCP Internal Medicine; Visit Provider Ophthalmology
DX: H02.002 Unspecified entropion of right lower eyelid (principal); Z53.9 Procedure and treatment not carried out, unspecified reason

== ENCOUNTER 2023-04-05 07:22 | Outpatient (REF) | payer MEDICARE, SELFPAY ==
[2023-04-05 14:40] VITALS: BP 136/99; PULSE 93; RESP 18; TEMP 36.5; O2SAT 98; BMI 25.4
== END 2023-04-05 07:23 | disposition home or self-care (01) ==
LOC: HO.MS 07:22
PROVIDERS: PCP Internal Medicine; Visit Provider Ophthalmology
PROC: (CPT 67924; principal; 2023-04-05 14:20)
DX: H02.002 Unspecified entropion of right lower eyelid (principal)
CPT/HCPCS: 67924

== ENCOUNTER 2023-04-14 06:58 | Outpatient (REF) | payer MEDICARE, SELFPAY ==
[2023-04-14 07:15] LABS: MANUAL DIFF FLAG NO
[2023-04-14 07:45] LABS: Basophils Percent Auto 0.6 % (0-2); Eosinophils Absolute Auto 0.5 X10*3/uL (0.0-0.4); Eosinophils Percent Auto 9.2 % (0-4); Hematocrit 37.2 % (37.0-47.0); Hemoglobin 12.9 g/dl (12.0-16.0); Imm Gran Abs Auto 0.01 X10*3/uL (0.00-0.03); Imm Gran Pct Auto 0.2 % (0.0-0.4); Lymphocytes Absolute Auto 1.6 X10*3/uL (1.2-4.9); Lymphocytes Percent Auto 29.2 % (20-40); Mean Corpuscular HGB Conc 34.7 g/dl (31.0-35.0); Mean Corpuscular Hemoglobin 32.4 pg (27.0-33.0); Mean Corpuscular Volume 93.5 fL (80.0-98.0); Mean Platelet Volume 9.9 fL (9.4-12.3); Monocytes Absolute Auto 0.5 X10*3/uL (0.1-1.2); Monocytes Percent Auto 9.4 % (2-11); Neutrophils Absolute Auto 2.8 x10*3/uL (2.0-8.3); Neutrophils Percent Auto 51.4 % (45-73); Platelet Count 212 X10*3/uL (160-400); Red Blood Count 3.98 X10*6/uL (4.20-5.50); Red Cell Distribution Width 13.6 % (11.0-16.0); White Blood Count 5.4 X10*3/uL (4.8-10.8)
[2023-04-14 08:33] LABS: Alanine Aminotransferase 19 U/L (0-31); Albumin Level 4.1 g/dL (3.5-5.0); Alkaline Phosphatase 58 U/L (39-117); Anion Gap 12 (12-20); Aspartate Amino Transferase 21 U/L (5-31); Bilirubin Total 0.8 mg/dL (0.0-1.0); Blood Urea Nitrogen 15 mg/dL (9-16); Calcium 8.9 mg/dL (8.4-10.2); Carbon Dioxide 29 mmol/L (22-29); Chloride 105 mmol/L (96-108); Cholesterol 188 mg/dL (<200); Estimated Glomerular Filt Rate > 60; Glucose Fasting 93 mg/dL (60-99); HDL Cholesterol 83 mg/dL (>40); LDL Cholesterol Calculated 94 mg/dL (<100); Potassium 3.6 mmol/L (3.3-5.1); Sodium 142 mmol/L (135-145); Total Protein 6.9 g/dL (6.5-8.0); Triglycerides 55 mg/dL (<150)
[2023-04-14 08:50] LABS: TSH reflex Free T4 1.57 uIU/mL (0.32-4.0); Vitamin D 25-OH Total 40.6 ng/mL (>30)
== END 2023-04-14 06:59 | disposition home or self-care (01) ==
LOC: HO.LAB 06:58
PROVIDERS: PCP Internal Medicine; Visit Provider Internal Medicine
DX: M81.0 Age-related osteoporosis without current pathological fracture (principal); E78.5 Hyperlipidemia, unspecified; E55.9 Vitamin D deficiency, unspecified; I10 Essential (primary) hypertension
CPT/HCPCS: 36415; 80053; 80061; 82306; 84443; 85025

== ENCOUNTER 2023-04-22 13:19 | Outpatient (AMB) | payer MEDICARE, SELFPAY ==
[2023-04-22 13:20] VITALS: BP 120/66; PULSE 87; O2SAT 98; BMI 26.4
--- NOTE | 2023-04-22 13:20 | A.OFFPC_ITS ---
Vital Signs 04/22/23 13:20 Height 5 ft Weight 135 lb BMI 26.4 BP 120/66 Blood Pressure Location Lt brachial Position Sitting Pulse 87 Pulse Source Pulse Oximeter Pulse Oximetry (%) 98 Oxygen Delivery Method Room Air Intake Visit Reasons: Follow up complex Intake Note: Pt is here today for a follow up visit. Allergies diclofenac [From ARTHROTEC] Allergy (Severe, Verified 04/22/23 13:20) ANXIETY/WEAKNESS/CONFUSION misoprostol [From ARTHROTEC] Allergy (Severe, Verified 04/22/23 13:20) ANXIETY/WEAKNESS/CONFUSION sertraline [SERTRALINE] Allergy (Severe, Verified 04/22/23 13:20) ANXIETY/WEAKNESS/CONFUSION, dizziness tramadol [TRAMADOL] Allergy (Severe, Verified 04/22/23 13:20) ANXIETY/CONFUSION/WEAKNESS prednisone Adverse Reaction (Unknown, Verified 04/22/23 13:20) psychosis Medication List - Last Reconciled 04/22/23 by Milady Miranda MD amlodipine 5 mg PO DAILY atorvastatin 10 mg PO DAILY cholecalciferol (vitamin D3) 25 mcg PO DAILY citalopram 5 mg (1/2 x 10 mg) PO DAILY zlvwsyvcjpni-dgrkmkzb-ndczfe 1 tab PO DAILY Tobacco use date assessed: 04/22/23 Fall risk assessment: No Falls in past year Last assessed Fall Risk: 04/22/23 Dental Screening Dental Screen Date: 04/22/23 Did you have a dental visit in the last 12 months?: Yes Did you have a dental problem in the last 6 months where you did not have access to dental care?: No Was dental information given to patient?: Patient has dentist HPI Follow up complex HPI Details Pt presents for f/u HTN, hyperlipid, anxiety, stable on meds. Patient had 3 Reclast infusions for osteoporosis and osteoporotic fractures, the last one in November 2021. She is due for repeat DEXA in November. [facility] Medical History Compression deformity of vertebra Acute right hip pain Status post fall Vitamin D deficiency HTN (hypertension) DJD (degenerative joint disease), lumbar Compression fracture Age related osteoporosis GERD (gastroesophageal reflux disease) Depression Hyperlipemia Surgical History H/O kyphoplasty History of thyroid surgery History of total hip replacement Family History Father CVD (cardiovascular disease) Heart disease Mother CVD (cardiovascular disease) Heart disease Maternal Grandfather No problems noted. Maternal Grandmother No problems noted. Paternal Grandfather No problems noted. Paternal Grandmother No problems noted. Brother No problems noted. Daughter No problems noted. Son No problems noted. Social History Housing: House Alcohol intake: never Patient Tobacco Use Status: Never used Tobacco e-Cigarette/Vaping Use: Never Used Advance Directives Date on File: 07/08/21 Current occupational status: retired Sexual orientation: Straight/Heterosexual Gender identity: Female Cognitive needs: No Hearing needs: No Vision needs: No Questionnaire PHQ-9 Over the last 2 weeks, how often have you been bothered by any of the following problems? 1. Little interest or pleasure in doing things: not at all 2. Feeling down, depressed, or hopeless: not at all 3. Trouble falling or staying asleep, or sleeping too much: not at all 4. Feeling tired or having little energy: several days 5. Poor appetite or overeating: not at all 6. Feeling bad about yourself - or that you are a failure or have let yourself or your family down: not at all 7. Trouble concentrating on things, such as reading the newspaper or watching television: not at all 8. Moving or speaking so slowly that other people could have noticed. Or the opposite - being so fidgety or restless that you have been moving around a lot more than usual: not at all 9. Thoughts that you would be better off or of hurting yourself in some way: not at all Total score: 1 Depression Screening Interpretation: Negative Depression Screening Done: Yes Source: Developed by Drs. Zurdo Mendiola, Liana Calderón, Juancarlos Osman and colleagues, with an educational leonardo from [employer]. Thrive Questionnaire Date Thrive assessed: 04/22/23 I am a: Patient What is your living situation today?: I have a steady place to live Within the past 12 months, did the food you bought not last and you didn't have the money to get more?: Never true Within the past 12 months, did you worry whether your food would run out before you got money to buy more?: Never true Do you have trouble paying for medicines?: No Do you have trouble getting transportation to medical appointments?: No Do you have trouble paying your heating and electricity bill?: No Do you have trouble taking care of your child, family member or friend?: No Do you have trouble with day-to-day activities such as bathing, preparing meals, shopping, managing finances, etc.?: No Are you currently unemployed and looking for a job?: No Are you interested in more education?: No Please select the resources that you would like help with: None THRIVE Score: 0 AUDIT C Alcohol Use Questionnaire (AUDIT-C) 1. How often do you have a drink containing alcohol?: Never 3. How often do you have six or more drinks on one occasion?: Never Total Score: 0 QUINTIN-7 AMB Questionnaire QUINTIN-7 Date QUINTIN - 7 assessed: 04/22/23 Feeling nervous, anxious, or on edge: 0 = Not at all Not being able to stop or control worryin = Not at all Worrying too much about different things: 0 = Not at all Trouble relaxin = Not at all Being so restless that it is hard to sit still: 0 = Not at all Becoming easily annoyed or irritable: 0 = Not at all Feeling afraid as if something awful might happen: 0 = Not at all Total QUINTIN-7 score (0-4 normal; 5-9 mild; 10-14 moderate; 15-21 severe): 0 Source: Developed by Drs. Zurdo Mendiola, Liana Calderón, Juancarlos Osman and colleagues, with an educational leonardo from [employer]. Review of Systems Const All systems reviewed & are unremarkable except as noted in HPI and below Reports no additional complaints Eyes Reports no additional complaints ENT Reports no additional complaints Card Reports no additional complaints Resp Reports no additional complaints GI Reports no additional complaints Reports no additional complaints Physical exam (Primary Care) Vital Signs: Last Vital Signs Pulse 87 04/22/23 13:20 BP 120/66 04/22/23 13:20 Pulse Ox 98 04/22/23 13:20 Oxygen Delivery Method Room Air 04/22/23 13:20 BMI result Body Mass Index 26.4 Tobacco/Smoking Status: Tobacco use Status Tobacco use date assessed 04/22/23 04/22/23 13:30 Patient Tobacco Use Status Never used Tobacco 04/22/23 13:30 e-Cigarette/Vaping Use Never Used 04/22/23 13:20 PHQ-9: PHQ-9 Score PHQ-9: Total score 1 04/22/23 13:30 Depression Screening Interpretation: Negative Thrive Assessment: Date of Thrive Assessment Date Thrive assessed 04/22/23 04/22/23 13:30 Const General: no acute distress HENMT Head: Yes normal to inspection Mouth: Normal oral and palatal mucosa present Resp Effort & Inspection: normal respiratory effort Auscultation: clear to auscultation bilaterally Cardio Rhythm: regular rhythm Heart sounds: S1 normal heart sound present and S2 normal heart sound present GI Inspection: Yes normal to inspection Palpation (GI): Soft to palpation Auscultation: normal bowel sounds Assessment and Plan Assessment & Plan (1) Age related osteoporosis: Comment: follow-up endocrinology. Hx of Reclast infusion November 2019, 12/2020, 12/30, Code(s): M81.0 - Age-related osteoporosis without current pathological fracture Plan: Continue vitamin-D weight-bearing exercises and repeat DEXA in November (2) Vitamin D deficiency: Code(s): E55.9 - Vitamin D deficiency, unspecified Plan: Continue vitamin-D (3) HTN (hypertension): Code(s): I10 - Essential (primary) hypertension Plan: Continue amlodipine (4) Hyperlipemia: Code(s): E78.5 - Hyperlipidemia, unspecified Plan: Continue statin (5) Compression fracture: Comment: L 4 , 40 % height loss 10/2019 Plan: as above Orders: Orders XR DEXA axial skeleton 7 Months M81.0 - Age-related osteoporosis without current pathological fracture Comprehensive Met. Panel 7 Months E55.9 - Vitamin D deficiency, unspecified, E78.5 - Hyperlipidemia, unspecified, I10 - Essential (primary) hypertension Lipid Panel 7 Months E78.5 - Hyperlipidemia, unspecified Complete Blood Count Auto Diff 7 Months E55.9 - Vitamin D deficiency, unspecified, E78.5 - Hyperlipidemia, unspecified, I10 - Essential (primary) hypertension TSH reflex Free T4 7 Months E55.9 - Vitamin D deficiency, unspecified, E78.5 - Hyperlipidemia, unspecified, I10 - Essential (primary) hypertension Vitamin D 25-OH Total 7 Months E55.9 - Vitamin D deficiency, unspecified, E78.5 - Hyperlipidemia, unspecified, I10 - Essential (primary) hypertension Coding Level of Care Code Est Pt Level 4 (45047) Diagnoses Age related osteoporosis M81.0 Vitamin D deficiency E55.9 HTN (hypertension) I10 Hyperlipemia E78.5 Compression fracture
== END 2023-04-22 14:22 | disposition home or self-care (01) ==
PROVIDERS: PCP Internal Medicine; Visit Provider Internal Medicine
DX: M81.0 Age-related osteoporosis without current pathological fracture (principal); E55.9 Vitamin D deficiency, unspecified; I10 Essential (primary) hypertension; E78.5 Hyperlipidemia, unspecified
CPT/HCPCS: 99214

== ENCOUNTER 2023-07-06 09:36 | Outpatient (AMB) | payer MEDICARE, SELFPAY ==
[2023-07-06 09:44] VITALS: BP 130/76; BMI 28.1
--- NOTE | 2023-07-06 09:44 | MHC.OFFVIS ---
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: No Information Interpreted: clinical only Lead Nuclear Medicine Technologist: Lead Nuclear Medicine Technologist Present Allergies diclofenac [From ARTHROTEC] Allergy (Severe, Verified 07/06/23 09:46) ANXIETY/WEAKNESS/CONFUSION misoprostol [From ARTHROTEC] Allergy (Severe, Verified 07/06/23 09:46) ANXIETY/WEAKNESS/CONFUSION sertraline [SERTRALINE] Allergy (Severe, Verified 07/06/23 09:46) ANXIETY/WEAKNESS/CONFUSION, dizziness tramadol [TRAMADOL] Allergy (Severe, Verified 07/06/23 09:46) ANXIETY/CONFUSION/WEAKNESS prednisone Adverse Reaction (Unknown, Verified 07/06/23 09:46) psychosis Post menopausal: Yes Do you need a note to return to daycare/school/sports/work: No HPI Comments Details: 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 She is doing well with no concerns. Attempting to eat a healthy diet with calcium and vitamin D and stays active with exercise-walking, uses a cane. Currently not sexually active, . Denies any vaginal dryness or irritation. Denies any family history of breast, ovarian or colon cancer. [facility] Medical History Compression deformity of vertebra Acute right hip pain Status post fall Vitamin D deficiency HTN (hypertension) DJD (degenerative joint disease), lumbar Compression fracture Age related osteoporosis GERD (gastroesophageal reflux disease) Depression Hyperlipemia Surgical History H/O kyphoplasty History of thyroid surgery History of total hip replacement Family History Father CVD (cardiovascular disease) Heart disease Mother CVD (cardiovascular disease) Heart disease Maternal Grandfather No problems noted. Maternal Grandmother No problems noted. Paternal Grandfather No problems noted. Paternal Grandmother No problems noted. Brother No problems noted. Daughter No problems noted. Son No problems noted. Social History Housing: House Alcohol intake: never Patient Tobacco Use Status: Never used Tobacco e-Cigarette/Vaping Use: Never Used Advance Directives Date on File: 07/08/21 Current occupational status: retired Sexual orientation: Straight/Heterosexual Gender identity: Female Cognitive needs: No Hearing needs: No Vision needs: No Female Reproductive History Menstrual control method: none Full term: 2 History of abnormal pap smear: No (previous pap unsure date) History of abnormal mammogram: No (previous mammogram,2020,neg.) Review of Systems Const All systems reviewed & are unremarkable except as noted in HPI and below Reports as per HPI Eyes Reports no additional complaints ENT Reports no additional complaints Card Reports no additional complaints Resp Reports no additional complaints GI Reports as per HPI and Reports no additional complaints Reports as per HPI Musc Reports no additional complaints Skin/Breast Reports as per HPI Neuro Reports no additional complaints Psych Reports no additional complaints Endo Reports no additional complaints Sav/Lymph Reports no additional complaints Aller/Immun Reports no additional complaints Physical Exam Vital Signs: Last Vital Signs BP 130/76 07/06/23 09:44 BMI result Body Mass Index 28.1 Const General: cooperative, healthy appearing, no acute distress, well developed and alert Orientation/consciousness: patient oriented x3 HEENT Head: Yes normal to inspection Eyes General: appearance normal, both eyes and all related structures Neck Neck: Yes normal visual inspection Thyroid: Thyroid normal Chest Chest palpation & inspection: normal inspection of the chest and other (no puckering, dimpling, peau de orange, retraction, discharge, masses) Breast/axilla inspection: normal inspection of the breasts Breast/axilla palpation: normal palpation of the breasts Resp Effort & Inspection: normal respiratory effort GI Inspection: Yes normal to inspection Palpation (GI): Soft to palpation Rectal Exam - Female: deferred (Internal exam) and visual inspection normal General: Yes bladder normal to palpation External Female Exam: normal external appearance and normal appearance of the urethra Speculum Exam - Vagina: normal appearance of the vagina, normal palpation, normal vaginal discharge and vagina atrophic Speculum Exam - Cervix: normal appearance of the cervix and normal palpation Bimanual exam- vagina & uterus: normal bimanual exam, normal palpation, uterine size normal, bladder normal to palpation, normal palpation and non-tender Bimanual Exam- Adnexa, other: no masses Skin General skin exam: no rashes or lesions noted Rashes: no rashes Neuro General: patient oriented x3 Cognition (Neuro): normal cognition Extrem General: Yes normal to inspection Psych Attitude: cooperative Thought process: Normal thought process present Assessment & Plan Assessment & Plan (1) Encounter for well woman exam with routine gynecological exam: Code(s): Z01.419 - Encounter for gynecological examination (general) (routine) without abnormal findings Category: Medical Plan Discussed: Current recommendations for pap smears per ASCCP guidelines. Breast awareness, periodic self breast exams and yearly mammogram. Maintain a healthy lifestyle, well balanced diet including Calcium 1,200 mg and Vitamin D 800 IU daily, and routine exercise. Contact the office with any postmenopausal bleeding. Patient verbalizes understanding and agrees to the plan of care. She was given opportunity to ask questions and all questions were answered to the best of my ability. 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 This note is constructed using voice recognition software. While every effort has been made to ensure accuracy, dbas errors may have been included. Coding Level of Care Code Est Pt Prev Care >65y(29678) Diagnoses Encounter for well woman exam with routine gynecological exam Z01.419
== END 2023-07-06 14:01 | disposition home or self-care (01) ==
LOC: HO.HWS 09:36
PROVIDERS: PCP Internal Medicine; Visit Provider Advanced Practice Midwife
DX: Z01.419 Encounter for gynecological examination (general) (routine) without abnormal findings (principal)
CPT/HCPCS: G0101

== ENCOUNTER → 2023-07-06 09:36 | Outpatient (BNVA) | payer MEDICARE, SELFPAY | PROVIDERS: PCP Internal Medicine; Visit Provider Advanced Practice Midwife | DX: Z01.419 Encounter for gynecological examination (general) (routine) without abnormal findings (principal) | CPT/HCPCS: G0101 ==

== ENCOUNTER 2023-10-29 13:26 | Outpatient (AMB) | payer MEDICARE, SELFPAY ==
--- NOTE | 2023-10-29 13:41 | A.OFFPC_ITS ---
Vital Signs 10/29/23 13:47 Height 4 ft 9 in Weight 128 lb BMI 27.7 BP 134/80 Blood Pressure Location Lt brachial Position Sitting Pulse 95 Pulse Source Pulse Oximeter Pulse Oximetry (%) 99 Oxygen Delivery Method Room Air Intake Visit Reasons: weakness, dizziness Intake Note: Pt is here today for a sick visit. Pt c/o weakness,dizziness, cough and sore throat. Pt states that she had Covid 2 weeks ago. Allergies diclofenac [From ARTHROTEC] Allergy (Severe, Verified 10/29/23 13:52) ANXIETY/WEAKNESS/CONFUSION misoprostol [From ARTHROTEC] Allergy (Severe, Verified 10/29/23 13:52) ANXIETY/WEAKNESS/CONFUSION sertraline [SERTRALINE] Allergy (Severe, Verified 10/29/23 13:52) ANXIETY/WEAKNESS/CONFUSION, dizziness tramadol [TRAMADOL] Allergy (Severe, Verified 10/29/23 13:52) ANXIETY/CONFUSION/WEAKNESS prednisone Adverse Reaction (Unknown, Verified 10/29/23 13:52) psychosis Medication List - Last Reconciled 10/29/23 by Milady Miranda MD amlodipine 5 mg PO DAILY atorvastatin 10 mg PO DAILY azithromycin For 250 mg dose pack: take 500 mg today (day 1), then 250 mg for 4 days (days 2-5) PO cholecalciferol (vitamin D3) 25 mcg PO DAILY citalopram 5 mg (1/2 x 10 mg) PO DAILY zggsedjwmikl-mjseemgv-dzjkls 1 tab PO DAILY Tobacco use date assessed: 10/29/23 Dental Screening Dental Screen Date: 04/22/23 HPI weakness, dizziness HPI Details Patient presents complaining of productive cough general fatigue night sweats for 2 weeks. She was diagnosed with COVID and took Paxlovid last week without significant improvement. She denies chest pain shortness of breath palpitations. [facility] Medical History Compression deformity of vertebra Acute right hip pain Status post fall Vitamin D deficiency HTN (hypertension) DJD (degenerative joint disease), lumbar Compression fracture Age related osteoporosis GERD (gastroesophageal reflux disease) Depression Hyperlipemia Surgical History H/O kyphoplasty History of thyroid surgery History of total hip replacement Family History Father CVD (cardiovascular disease) Heart disease Mother CVD (cardiovascular disease) Heart disease Maternal Grandfather No problems noted. Maternal Grandmother No problems noted. Paternal Grandfather No problems noted. Paternal Grandmother No problems noted. Brother No problems noted. Daughter No problems noted. Son No problems noted. Social History Housing: House Alcohol intake: never Patient Tobacco Use Status: Never used Tobacco e-Cigarette/Vaping Use: Never Used Advance Directives Date on File: 07/08/21 service: No Current occupational status: retired Sexual orientation: Straight/Heterosexual Gender identity: Female Cognitive needs: No Hearing needs: No Vision needs: No Questionnaire PHQ-9 Over the last 2 weeks, how often have you been bothered by any of the following problems? 1. Little interest or pleasure in doing things: more than half the days 2. Feeling down, depressed, or hopeless: more than half the days 3. Trouble falling or staying asleep, or sleeping too much: not at all 4. Feeling tired or having little energy: nearly every day 5. Poor appetite or overeating: more than half the days 6. Feeling bad about yourself - or that you are a failure or have let yourself or your family down: not at all 7. Trouble concentrating on things, such as reading the newspaper or watching television: not at all 8. Moving or speaking so slowly that other people could have noticed. Or the opposite - being so fidgety or restless that you have been moving around a lot more than usual: not at all 9. Thoughts that you would be better off or of hurting yourself in some way: not at all Total score: 9 Depression Screening Interpretation: Negative Depression Screening Done: Yes 31869 - PHQ-9 Billing: Yes Source: Developed by Drs. Zurdo Mendiola, Liana Calderón, Juancarlos Osman and colleagues, with an educational leonardo from [employer]. Thrive Questionnaire Date Thrive assessed: 10/29/23 I am a: Patient What is your living situation today?: I have a steady place to live Within the past 12 months, did the food you bought not last and you didn't have the money to get more?: I choose not to answer this question Within the past 12 months, did you worry whether your food would run out before you got money to buy more?: I choose not to answer this question Do you have trouble paying for medicines?: No Do you have trouble getting transportation to medical appointments?: No Do you have trouble paying your heating and electricity bill?: No Do you have trouble taking care of your child, family member or friend?: No Do you have trouble with day-to-day activities such as bathing, preparing meals, shopping, managing finances, etc.?: No Are you interested in more education?: No Please select the resources that you would like help with: None Currently or been in a relationship where the following occur: I choose not to answer THRIVE Score: 0 AUDIT C Alcohol Use Questionnaire (AUDIT-C) 1. How often do you have a drink containing alcohol?: Never 3. How often do you have six or more drinks on one occasion?: Never Total Score: 0 QUINTIN-7 AMB Questionnaire QUINTIN-7 Date QUINTIN - 7 assessed: 10/29/23 Feeling nervous, anxious, or on edge: 1 = Several days Not being able to stop or control worryin = Not at all Worrying too much about different things: 1 = Several days Trouble relaxin = Several days Being so restless that it is hard to sit still: 0 = Not at all Becoming easily annoyed or irritable: 1 = Several days Feeling afraid as if something awful might happen: 0 = Not at all Total QUINTIN-7 score (0-4 normal; 5-9 mild; 10-14 moderate; 15-21 severe): 4 Source: Developed by Drs. Zurdo Mendiola, Liana Calderón, Juancarlos Osman and colleagues, with an educational leonardo from [employer]. Review of Systems Const All systems reviewed & are unremarkable except as noted in HPI and below Eyes Reports no additional complaints ENT Reports no additional complaints Card Reports no additional complaints Resp Reports no additional complaints GI Reports no additional complaints Reports no additional complaints Physical exam (Primary Care) Vital Signs: Last Vital Signs Pulse 95 10/29/23 13:47 BP 134/80 10/29/23 13:47 Pulse Ox 99 09/20/24 13:47 Oxygen Delivery Method Room Air 10/29/23 13:47 BMI result Body Mass Index 27.7 Tobacco/Smoking Status: Tobacco use Status Tobacco use date assessed 10/29/23 10/29/23 13:55 Patient Tobacco Use Status Never used Tobacco 10/29/23 13:41 e-Cigarette/Vaping Use Never Used 10/29/23 13:41 PHQ-9: PHQ-9 Score PHQ-9: Total score 9 10/29/23 13:55 Depression Screening Interpretation: Negative Thrive Assessment: Date of Thrive Assessment Date Thrive assessed 10/29/23 10/29/23 13:55 Currently or been in a relationship where the following occur: I choose not to answer Const General: no acute distress HENMT Ears: hearing grossly normal bilaterally General nose exam: Normal external nose present Face and sinus: Yes normal facial exam Throat: Yes posterior oropharynx normal Eyes General: appearance normal, both eyes and all related structures Resp Effort & Inspection: normal respiratory effort Auscultation: crackles on the left (base) and diminished lung sounds Cardio Rhythm: regular rhythm Heart sounds: S1 normal heart sound present and S2 normal heart sound present Assessment and Plan Assessment & Plan (1) Cough: Code(s): R05.9 - Cough, unspecified Plan: Obtain chest x-ray Z-Felice as prescribed and supportive care discussed with the patient. Check CBC and basic metabolic panel Orders: Orders Basic Metabolic Panel Today R05.9 - Cough, unspecified Complete Blood Count Auto Diff Today R05.9 - Cough, unspecified XR chest 1V Today R05.9 - Cough, unspecified Medications: New azithromycin For 250 mg dose pack: take 500 mg today (day 1), then 250 mg for 4 days (days 2-5) PO 6 tabs 0RF Discontinued citalopram Discontinued Reason: Doctor's Order 5 mg (1/2 x 10 mg) PO DAILY 90 tabs 3RF Coding Level of Care Code Est Pt Level 3 (03816) Diagnoses Cough R05.9
[2023-10-29 13:47] VITALS: BP 134/80; PULSE 95; O2SAT 99; BMI 27.7
== END 2023-10-29 14:31 | disposition home or self-care (01) ==
PROVIDERS: PCP Internal Medicine; Visit Provider Internal Medicine
DX: R05.9 Cough, unspecified (principal)

== ENCOUNTER → 2023-10-29 13:26 | Outpatient (BNVA) | payer MEDICARE, SELFPAY | PROVIDERS: PCP Internal Medicine; Visit Provider Internal Medicine ==

== ENCOUNTER 2023-10-29 14:26 | Outpatient (REF) | payer MEDICARE, SELFPAY ==
--- NOTE | ~2023-10-29 | XR_ITS ---
EXAMINATION: XR CHEST, 2 VIEWS CLINICAL INFORMATION: Cough. COMPARISON: 07/08/2021 TECHNIQUE: PA and lateral views of the chest were obtained. FINDINGS: No consolidation, pneumothorax, or pleural effusion. Pleural-parenchymal scarring is again suspected at the lung bases with associated chronic blunting of the costophrenic sulci. Cardiac and mediastinal contours are normal. Pulmonary vasculature is unremarkable. Trachea is midline. Bones are osteopenic. Multiple compression deformities are present in the thoracic and lumbar spine with cement from prior vertebral augmentation. XR/XR chest 2V IMPRESSION: 1. No acute pulmonary findings. 2. Multiple compression deformities in the thoracic and lumbar spine with cement from prior vertebral augmentation. Electronically signed by: Anshu Villarreal MD 10/29/2023 04:00 PM EDT RP
[2023-10-29 16:12] LABS: MANUAL DIFF FLAG NO
[2023-10-29 16:17] LABS: Basophils Percent Auto 0.5 % (0-2); Eosinophils Absolute Auto 0.2 X10*3/uL (0.0-0.4); Eosinophils Percent Auto 2.9 % (0-4); Hematocrit 36.7 % (37.0-47.0); Hemoglobin 12.5 g/dl (12.0-16.0); Imm Gran Abs Auto 0.02 X10*3/uL (0.00-0.03); Imm Gran Pct Auto 0.3 % (0.0-0.4); Lymphocytes Absolute Auto 1.9 X10*3/uL (1.2-4.9); Lymphocytes Percent Auto 32.1 % (20-40); Mean Corpuscular HGB Conc 34.1 g/dl (31.0-35.0); Mean Corpuscular Hemoglobin 32.1 pg (27.0-33.0); Mean Corpuscular Volume 94.1 fL (80.0-98.0); Mean Platelet Volume 9.8 fL (9.4-12.3); Monocytes Absolute Auto 0.6 X10*3/uL (0.1-1.2); Monocytes Percent Auto 9.7 % (2-11); Neutrophils Absolute Auto 3.2 x10*3/uL (2.0-8.3); Neutrophils Percent Auto 54.5 % (45-73); Platelet Count 257 X10*3/uL (160-400); Red Cell Distribution Width 13.3 % (11.0-16.0)
[2023-10-29 16:57] LABS: Anion Gap 12 (12-20); Blood Urea Nitrogen 16 mg/dL (9-16); Calcium 9.1 mg/dL (8.4-10.2); Carbon Dioxide 26 mmol/L (22-29); Chloride 107 mmol/L (96-108); Estimated Glomerular Filt Rate > 60; Glucose Random 99 mg/dL (60-115); Potassium 3.8 mmol/L (3.3-5.1); Sodium 141 mmol/L (135-145)
== END 2023-10-29 14:27 | disposition home or self-care (01) ==
LOC: HO.HMGCX 14:26
PROVIDERS: PCP Internal Medicine; Visit Provider Internal Medicine
DX: R05.9 Cough, unspecified (principal)
CPT/HCPCS: 36415; 71046; 80048; 85025; 99212

== ENCOUNTER 2023-12-07 10:26 | Outpatient (REF) | payer MEDICARE, SELFPAY ==
--- NOTE | ~2023-12-07 | MM_ITS ---
EXAMINATION: BONE DENSITOMETRY CLINICAL INDICATION: Age-related osteoporosis without current pathological fracture. COMPARISON: Previous BD dated 12/05/2021 and baseline BD dated 02/13/2005. TECHNIQUE: Using a [employer] DXA System (software version: 13.1) manufactured by [employer], dual-energy x-ray absorptiometry was performed of the lumbar spine and left hip. The images are of good technical quality. Summary results are attached. FINDINGS: LEFT FEMUR, NECK: Current: BMD 0.764 g/cm2, Z-score 0.7, T-score -2.0, osteopenia. Prior: BMD 0.781 g/cm2. Baseline: BMD 0.844 g/cm2. LEFT FEMUR, TOTAL: Current: BMD 0.757 g/cm2, Z-score 0.6, T-score -2.0, osteopenia, 0.4% increase from previous, 13.0% decrease from baseline (<5% change is not significant). Prior: BMD 0.754 g/cm2. Baseline: BMD 0.870 g/cm2. AP SPINE L3-L4 (excluding L1 and L2): The data of L1-L4 has been changed to exclude the L1 and L2 vertebral bodies, because hardware at these levels may cause overestimation of lumbar spine density. Current: BMD 1.033 g/cm2, Z-score 0.8, T-score -1.4, osteopenia, 7.6% increase from previous, 16.6% increase from baseline (<5% change is not significant). Prior: BMD 0.960 g/cm2. Baseline: BMD 0.886 g/cm2. IDENTIFIED RISK FACTORS: Early menopause, secondary osteoporosis, osteoporosis, history of fracture (adult). HISTORY OF FRACTURE: Hip, spine. MEDICATIONS: Calcium supplements or multivitamin, vitamin D, bisphosphonate. MM/XR DEXA axial skeleton IMPRESSION: 1. DIAGNOSIS: Osteopenia based on the lowest T-score value of -2.0 in the femoral neck and total femur applying World Health Organization criteria. 2. 10-YEAR FRACTURE RISK PREDICTION, FRAX: Not performed in this patient on estrogen or bone building treatments. 3. Treatment Recommendations: NOF guidelines recommend consideration for treatment in postmenopausal women and men age 50 and older presenting with the following: -A hip or vertebral (clinical or morphometric) fracture. -T-score less than or equal to -2.5 at the femoral neck or spine after appropriate evaluation to exclude secondary causes. -Low bone mass at the hip or spine and a 10-year fracture probability by FRAX of greater than or equal to 3% for hip fracture or greater than or equal to 20% for major osteoporotic fracture based on the [place] adapted WHO algorithm. 4. Other Recommendations: All treatment decisions require clinical judgment and consideration of individual patient factors, including patient preferences, comorbidities, previous drug use, risk factors not captured in the FRAX model (e.g. frailty, falls, vitamin D deficiency, increased bone turnover, interval significant decline in bone density) and possible under or overestimation of fracture risk by FRAX. Additional medical evaluation for secondary cause of low bone mineral density may be appropriate. FUTURE SCAN RECOMMENDATION: People with diagnosed cases of osteoporosis or at high risk for fracture should have regular bone mineral density tests. For patients eligible for Medicare, routine testing is allowed once every 2 years. The testing frequency can be increased to one year for patients who have rapidly progressing disease, those who are receiving or discontinuing medical therapy to restore bone mass, or have additional risk factors. Electronically signed by: Axel Mcghee MD 12/08/2023 06:04 PM EDT
== END 2023-12-07 10:27 | disposition home or self-care (01) ==
LOC: HO.MAMMO 10:26
PROVIDERS: PCP Internal Medicine; Visit Provider Internal Medicine
DX: M81.0 Age-related osteoporosis without current pathological fracture (principal)
CPT/HCPCS: 77080

== ENCOUNTER 2023-12-29 09:15 | Outpatient (AMB) | payer MEDICARE, SELFPAY ==
[2023-12-29 09:21] VITALS: BP 126/82; PULSE 89; O2SAT 95; BMI 28.1
--- NOTE | 2023-12-29 09:21 | A.OFFPC_ITS ---
Vital Signs 12/29/23 09:21 Height 4 ft 9 in Weight 130 lb BMI 28.1 BP 126/82 Blood Pressure Location Lt brachial Position Sitting Pulse 89 Pulse Source Pulse Oximeter Pulse Oximetry (%) 95 Oxygen Delivery Method Room Air Intake Visit Reasons: back issues Intake Note: Pt is here today for a sick visit. Pt c/o upper back pain and spine. Pt states that she goes for exercise program twice a week. Allergies diclofenac [From ARTHROTEC] Allergy (Severe, Verified 12/29/23 09:26) ANXIETY/WEAKNESS/CONFUSION misoprostol [From ARTHROTEC] Allergy (Severe, Verified 12/29/23:) ANXIETY/WEAKNESS/CONFUSION sertraline [SERTRALINE] Allergy (Severe, Verified 12/29/23:) ANXIETY/WEAKNESS/CONFUSION, dizziness tramadol [TRAMADOL] Allergy (Severe, Verified 12/29/23:) ANXIETY/CONFUSION/WEAKNESS prednisone Adverse Reaction (Unknown, Verified 12/29/23:) psychosis Tobacco use date assessed: 12/29/23 Dental Screening Dental Screen Date: 04/22/23 HPI back issues HPI Details Pt presents for HTN, hyperlipid, stable on meds. Patient complains of chronic mid and lower back pain stiffness and fatigue worse at the end of the day. She was feeling better while doing physical therapy. Patient has not been doing regular back exercises at home. She walks twice a week and feels better. Patient denies any weakness numbness in extremities, change in bowel or bladder function. She feels lonely because her daughter moved to [place] to help with her grandchildren. [facility] Medical History Compression deformity of vertebra Acute right hip pain Status post fall Vitamin D deficiency HTN (hypertension) DJD (degenerative joint disease), lumbar Compression fracture Age related osteoporosis GERD (gastroesophageal reflux disease) Depression Hyperlipemia Surgical History H/O kyphoplasty History of thyroid surgery History of total hip replacement Family History Father CVD (cardiovascular disease) Heart disease Mother CVD (cardiovascular disease) Heart disease Maternal Grandfather No problems noted. Maternal Grandmother No problems noted. Paternal Grandfather No problems noted. Paternal Grandmother No problems noted. Brother No problems noted. Daughter No problems noted. Son No problems noted. Social History Housing: House Alcohol intake: never Patient Tobacco Use Status: Never used Tobacco e-Cigarette/Vaping Use: Never Used Advance Directives Date on File: 07/08/21 service: No Current occupational status: retired Sexual orientation: Straight/Heterosexual Gender identity: Female Cognitive needs: No Hearing needs: No Vision needs: No Questionnaire Thrive Questionnaire Date Thrive assessed: 10/29/23 I am a: Patient What is your living situation today?: I have a steady place to live Within the past 12 months, did the food you bought not last and you didn't have the money to get more?: I choose not to answer this question Within the past 12 months, did you worry whether your food would run out before you got money to buy more?: I choose not to answer this question Do you have trouble paying for medicines?: No Do you have trouble getting transportation to medical appointments?: No Do you have trouble paying your heating and electricity bill?: No Do you have trouble taking care of your child, family member or friend?: No Do you have trouble with day-to-day activities such as bathing, preparing meals, shopping, managing finances, etc.?: No Are you interested in more education?: No Please select the resources that you would like help with: None Currently or been in a relationship where the following occur: I choose not to answer THRIVE Score: 0 QUINTIN-7 AMB Questionnaire QUINTIN-7 Date QUINTIN - 7 assessed: 10/29/23 Source: Developed by Drs. Zurdo Mendiola, Liana Calderón, Junacarlos Osman and colleagues, with an educational leonardo from [employer]. Review of Systems Const All systems reviewed & are unremarkable except as noted in HPI and below Reports no additional complaints Eyes Reports no additional complaints ENT Reports no additional complaints Card Reports no additional complaints Resp Reports no additional complaints GI Reports no additional complaints Reports no additional complaints Physical exam (Primary Care) Vital Signs: Last Vital Signs Pulse 89 12/29/23 09:21 BP 126/82 12/29/23 09:21 Pulse Ox 95 12/29/23 09:21 Oxygen Delivery Method Room Air 12/29/23 09:21 BMI result Body Mass Index 28.1 Tobacco/Smoking Status: Tobacco use Status Tobacco use date assessed 12/29/23 12/29/23 09:30 Patient Tobacco Use Status Never used Tobacco 12/29/23 09:27 e-Cigarette/Vaping Use Never Used 12/29/23 09:27 Thrive Assessment: Date of Thrive Assessment Date Thrive assessed 10/29/23 12/29/23 09:27 Currently or been in a relationship where the following occur: I choose not to answer Const General: no acute distress HENMT Head: Yes normal to inspection Ears: hearing grossly normal bilaterally General nose exam: Normal external nose present Face and sinus: Yes normal facial exam Mouth: Normal oral and palatal mucosa present Throat: Yes posterior oropharynx normal Eyes General: appearance normal, both eyes and all related structures Neck Neck: Yes no lymphadenopathy and Yes supple Resp Effort & Inspection: normal respiratory effort Auscultation: clear to auscultation bilaterally Cardio Rhythm: regular rhythm Heart sounds: S1 normal heart sound present and S2 normal heart sound present GI Inspection: Yes normal to inspection Palpation (GI): Soft to palpation Percussion: Yes normal to percussion Auscultation: normal bowel sounds Coding Level of Care Code Est Pt Level 4 (92670) Complex EM visit Add On G2211 Diagnoses HTN (hypertension) I10 Hyperlipemia E78.5 Vitamin D deficiency E55.9 Age related osteoporosis M81.0 Assessment & Plan Assessment & Plan (1) HTN (hypertension): Code(s): I10 - Essential (primary) hypertension Category: Medical Plan: cont Amlodipine (2) Hyperlipemia: Code(s): E78.5 - Hyperlipidemia, unspecified Category: Medical Plan: Continue statin (3) Vitamin D deficiency: Code(s): E55.9 - Vitamin D deficiency, unspecified Category: Medical Plan: Continue vitamin-D supplement (4) Age related osteoporosis: Comment: follow-up endocrinology. Hx of Reclast infusion November 2019, 12/2020, 12/30, Code(s): M81.0 - Age-related osteoporosis without current pathological fracture Category: Medical Plan: Follow-up with endocrinology
== END 2023-12-29 10:51 | disposition home or self-care (01) ==
PROVIDERS: PCP Internal Medicine; Visit Provider Internal Medicine
DX: I10 Essential (primary) hypertension (principal); E78.5 Hyperlipidemia, unspecified; E55.9 Vitamin D deficiency, unspecified; M81.0 Age-related osteoporosis without current pathological fracture

== ENCOUNTER → 2023-12-29 09:15 | Outpatient (BNVA) | payer MEDICARE, SELFPAY | PROVIDERS: PCP Internal Medicine; Visit Provider Internal Medicine | DX: I10 Essential (primary) hypertension (principal); E78.5 Hyperlipidemia, unspecified; E55.9 Vitamin D deficiency, unspecified; M81.0 Age-related osteoporosis without current pathological fracture | CPT/HCPCS: 99212 ==

== ENCOUNTER 2024-04-07 14:03 | Outpatient (AMB) | payer MEDICARE, SELFPAY ==
[2024-04-07 14:05] VITALS: BP 120/76; PULSE 92; RESP 20; TEMP 36.8; O2SAT 99; BMI 28.1
--- NOTE | 2024-04-07 14:05 | MHC.PC.OV ---
Vital Signs 04/07/24 14:05 Height 4 ft 9 in Weight 130 lb BMI 28.1 BP 120/76 Blood Pressure Location Lt brachial Position Sitting Respiration 20 Pulse 92 Pulse Source Pulse Oximeter Temp 98.3 F Temp Source Oral Pulse Oximetry (%) 99 Oxygen Delivery Method Room Air Intake Visit Reasons: Rash on chest Intake Note: Pt is here today for a sick visit. Pt c/o itchy rash on her chest. Allergies diclofenac [From ARTHROTEC] Allergy (Severe, Verified 04/07/24 14:11) ANXIETY/WEAKNESS/CONFUSION misoprostol [From ARTHROTEC] Allergy (Severe, Verified 04/07/24 14:11) ANXIETY/WEAKNESS/CONFUSION sertraline [SERTRALINE] Allergy (Severe, Verified 04/07/24 14:11) ANXIETY/WEAKNESS/CONFUSION, dizziness tramadol [TRAMADOL] Allergy (Severe, Verified 04/07/24 14:11) ANXIETY/CONFUSION/WEAKNESS prednisone Adverse Reaction (Unknown, Verified 04/07/24 14:11) psychosis Medication List - Last Reconciled 04/07/24 by Milady Miranda MD amlodipine 5 mg PO DAILY atorvastatin 10 mg PO DAILY cholecalciferol (vitamin D3) 25 mcg PO DAILY ewpdbwnzxilc-fcmcaati-kgycou 1 tab PO DAILY psyllium seed (sugar) (Metamucil (sugar) oral powder) 1 tbsp PO DAILY Tobacco use date assessed: 04/07/24 Fall risk assessment: No Falls in past year Last assessed Fall Risk: 04/07/24 Dental Screening Dental Screen Date: 04/07/24 Did you have a dental visit in the last 12 months?: Yes Did you have a dental problem in the last 6 months where you did not have access to dental care?: No Was dental information given to patient?: Patient has dentist HPI Rash on chest HPI Details Patient presents complaining of pruritic rash on upper chest for 1 week. Patient denies using any new laundry detergent or cosmetics. [facility] Medical History Compression deformity of vertebra Acute right hip pain Status post fall Vitamin D deficiency HTN (hypertension) DJD (degenerative joint disease), lumbar Compression fracture Age related osteoporosis GERD (gastroesophageal reflux disease) Depression Hyperlipemia Surgical History H/O kyphoplasty History of thyroid surgery History of total hip replacement Family History Father CVD (cardiovascular disease) Heart disease Mother CVD (cardiovascular disease) Heart disease Maternal Grandfather No problems noted. Maternal Grandmother No problems noted. Paternal Grandfather No problems noted. Paternal Grandmother No problems noted. Brother No problems noted. Daughter No problems noted. Son No problems noted. Social History Housing: House Alcohol intake: never Patient Tobacco Use Status: Never used Tobacco e-Cigarette/Vaping Use: Never Used Advance Directives Date on File: 07/08/21 service: No Current occupational status: retired Sexual orientation: Straight/Heterosexual Gender identity: Female Cognitive needs: No Hearing needs: No Vision needs: No Questionnaire PHQ-9 Over the last 2 weeks, how often have you been bothered by any of the following problems? 1. Little interest or pleasure in doing things: more than half the days 2. Feeling down, depressed, or hopeless: more than half the days 3. Trouble falling or staying asleep, or sleeping too much: not at all 4. Feeling tired or having little energy: nearly every day 5. Poor appetite or overeating: more than half the days 6. Feeling bad about yourself - or that you are a failure or have let yourself or your family down: not at all 7. Trouble concentrating on things, such as reading the newspaper or watching television: not at all 8. Moving or speaking so slowly that other people could have noticed. Or the opposite - being so fidgety or restless that you have been moving around a lot more than usual: not at all 9. Thoughts that you would be better off or of hurting yourself in some way: not at all Total score: 9 Depression Screening Interpretation: Negative Depression Screening Done: Yes 60493 - PHQ-9 Billing: Yes Source: Developed by Drs. Zurdo Mendiola, Liana Calderón, Juancarlos Osman and colleagues, with an educational leonardo from [employer]. Thrive Questionnaire Date Thrive assessed: 04/07/24 I am a: Patient What is your living situation today?: I have a steady place to live Within the past 12 months, did the food you bought not last and you didn't have the money to get more?: I choose not to answer this question Within the past 12 months, did you worry whether your food would run out before you got money to buy more?: I choose not to answer this question Do you have trouble paying for medicines?: No Do you have trouble getting transportation to medical appointments?: No Do you have trouble paying your heating and electricity bill?: No Do you have trouble taking care of your child, family member or friend?: No Do you have trouble with day-to-day activities such as bathing, preparing meals, shopping, managing finances, etc.?: No Are you interested in more education?: No Please select the resources that you would like help with: None Currently or been in a relationship where the following occur: I choose not to answer THRIVE Score: 0 AUDIT C Alcohol Use Questionnaire (AUDIT-C) 1. How often do you have a drink containing alcohol?: Never 3. How often do you have six or more drinks on one occasion?: Never Total Score: 0 QUINTIN-7 AMB Questionnaire QUINTIN-7 Date QUINTIN - 7 assessed: 04/07/24 Feeling nervous, anxious, or on edge: 0 = Not at all Not being able to stop or control worryin = Not at all Worrying too much about different things: 0 = Not at all Trouble relaxin = Not at all Being so restless that it is hard to sit still: 0 = Not at all Becoming easily annoyed or irritable: 0 = Not at all Feeling afraid as if something awful might happen: 0 = Not at all Total QUINTIN-7 score (0-4 normal; 5-9 mild; 10-14 moderate; 15-21 severe): 0 Source: Developed by Drs. Zurdo Mendiola, Liana Calderón, Juancarlos Osman and colleagues, with an educational leonardo from [employer]. QUINTIN-7 Assessment Billing QUINTIN-7 Assessment Tool: QUINTIN-7 Assessment 97516 Review of Systems Const All systems reviewed & are unremarkable except as noted in HPI and below Eyes Reports no additional complaints ENT Reports no additional complaints Card Reports no additional complaints Resp Reports no additional complaints GI Reports no additional complaints Reports no additional complaints Physical exam (Primary Care) Vital Signs: Last Vital Signs Temp 98.3 F 04/07/24 14:05 Pulse 92 04/07/24 14:05 Resp 20 04/07/24 14:05 BP 120/76 04/07/24 14:05 Pulse Ox 99 04/07/24 14:05 Oxygen Delivery Method Room Air 04/07/24 14:05 BMI result Body Mass Index 28.1 Tobacco/Smoking Status: Tobacco use Status Tobacco use date assessed 04/07/24 04/07/24 14:12 Patient Tobacco Use Status Never used Tobacco 04/07/24 14:05 e-Cigarette/Vaping Use Never Used 04/07/24 14:05 PHQ-9: PHQ-9 Score PHQ-9: Total score 9 04/07/24 14:12 Depression Screening Interpretation: Negative Thrive Assessment: Date of Thrive Assessment Date Thrive assessed 04/07/24 04/07/24 14:12 Currently or been in a relationship where the following occur: I choose not to answer Const General: no acute distress HENMT Head: Yes normal to inspection Face and sinus: Yes normal facial exam Eyes General: appearance normal, both eyes and all related structures Neck Other: There is erythematous papular rash on the upper chest Neck: Yes no lymphadenopathy and Yes supple Resp Effort & Inspection: normal respiratory effort Auscultation: clear to auscultation bilaterally Cardio Rhythm: regular rhythm Heart sounds: S1 normal heart sound present and S2 normal heart sound present Coding Level of Care Code Est Pt Level 3 (11773) Diagnoses Rash R21 HTN (hypertension) I10 Additional Codes QUINTIN-7 Assessment Billing - QUINTIN-7 Assessment Tool: QUINTIN-7 Assessment 38575 ([id number]) PHQ-9 - 85383 - PHQ-9 Billing: Yes ([id number]) Assessment & Plan Assessment & Plan (1) Rash: Code(s): R21 - Rash and other nonspecific skin eruption Category: Medical Plan: Prednisone 10 mg daily for 5 days and triamcinolone cream are prescribed. Patient was advised to avoid taking bath or shower in hot water, excessive use of soap and change laundry detergent to the one for sensitive skin. (2) HTN (hypertension): Code(s): I10 - Essential (primary) hypertension Category: Medical Plan: Continue current medications Medications: New prednisone 10 mg PO DAILY 5 tabs 0RF triamcinolone acetonide 0.1% 1 appl topical DAILY 80 grams 0RF
--- OUTSIDE RECORDS SUMMARY | 2024-04-07 16:16 | XMS_ITS | Data Portability ---
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 Her worse pain is in her low back and radiates into her sides. X-ray shows new compression at T11 vertebrae. On exam, she has pain on flexion . I recommend a MRI thoracic spine and a kyphoplasty if appropriate. She was advised to wear the back brace and use a walker. I also recommend Lidocaine patches for her pain. [email or web address] Not available 09/05/2020 11:26:51 11/27/2020 11/27/2020 Sabrina Valdez is a 85 year old woman with complaints of low back pain. Her worse pain is in her low back and radiates into her sides. X-ray shows new compression at T11 vertebrae. On exam, she has pain on flexion . MRI thoracic spine shows new fracture at L2 level and is S/P kyphoplasty with some pain benefit. She still has thoracic back pain. I recommend physical therapy . She will follow up in four weeks after starting PT. [email or web address] Not available 11/27/2020 15:47:38 01/09/2021 01/09/2021 Sabrina Valdez is a 86 year old woman with mid to low back pain . On exam ,she has pain on flexion. MRI Lumbar spine shows there has been an interval vertebroplasty at T12 since the previous examination. There was a prior vertebroplasty at L1 with retrolisthesis of bone fragments again noted. There is also compression deformity at the L4 vertebral body which appears predominantly old as detailed above. There is no new compression fracture identified. Mild disc herniation and degenerative changes multiple levels of the lumbar spine with associated mild compression of the dural sac and foraminal stenosis similar to the previous studies. Mild intrahepatic bile duct dilatation.. Trial of Lumbar epidural steroid injections under fluoroscopic guidance was recommended. The risks and benefits of the procedure were discussed in detail. She wishes to proceed. An appointment has been booked for the same. She needs a motor vehicle escort driver on the day of the procedure. [email or web address] Not available 01/20/2021 10:34:29 01/28/2021 01/28/2021 Sabrina Valdez is a 86 year old woman with low back pain radiating into the both lower extremities, right is greater than left. On exam ,she has pain on flexion. MRI Lumbar spine shows there has been an interval vertebroplasty at T12 since the previous examination. There was a prior vertebroplasty at L1 with retrolisthesis of bone fragments again noted. There is also compression deformity at the L4 vertebral body which appears predominantly old as detailed above. There is no new compression fracture identified. Mild disc herniation and degenerative changes multiple levels of the lumbar spine with associated mild compression of the dural sac and foraminal stenosis similar to the previous studies. She is here for a repeat Lumbar epidural steroid injections under fluoroscopic guidance . The risks and benefits of the procedure were discussed in detail. She wishes to proceed. She will follow up in six weeks trever Not available 01/28/2021 10:27:41 03/10/2021 03/10/2021 Sabrina Valdez is a 86 year old woman with mid to low back pain . On exam ,she has pain on flexion. MRI Lumbar spine shows there has been an interval vertebroplasty at T12 since the previous examination. There was a prior vertebroplasty at L1 with retrolisthesis of bone fragments again noted. There is also compression deformity at the L4 vertebral body which appears predominantly old as detailed above. There is no new compression fracture identified. Mild disc herniation and degenerative changes multiple levels of the lumbar spine with associated mild compression of the dural sac and foraminal stenosis similar to the previous studies. Mild intrahepatic bile duct dilatation.. Trial of Lumbar facet joint steroid injections at Left L4-5 and L5-S1 levels under fluoroscopic guidance was recommended. The risks and benefits of the procedure were discussed in detail. She wishes to proceed. An appointment has been booked for the same. She needs a motor vehicle escort driver on the day of the procedure. [email or web address] Not available 03/10/2021 15:13:35 Plan of Treatment Reminders Order Date Submit Date Provider Last Modified By Organization Details Last Modified Time Details Appointments None recorded. Lab None recorded. Referral physical therapist referral - Patient has multiple compression fractures - advise TENs unit and muscle strengtheni ng exercises . thank you. 2020 [facility], [address] [place] [address], [address], 05:01:29 Procedures None recorded. Surgeries None recorded. Imaging MRI, thoracic spine, w/o contrast - Patient had X-ray at [place] which shows new T11 compression fracture 2020 [facility], [address] [place] [address], [place], [address], 10:54:30 Medication Orders lidocaine 5 % topical patch 2020 [id number], [address] [place], [place], [phone], 10:29:08 lidocaine 5 % topical patch 2020 [facility][id number], [address], [place], [phone], 11:27:11 Patient TargetsNo targets recorded. Patient Instructions Encounter Date Encounter Id Patient Instructions Last Modified By Organization Details Last Modified Time 09/05/2020 [id number] She was advised against bed rest lasting longer than four days and to continue activities as tolerated. [email or web address] Not available 09/05/2020 11:24:30 11/27/2020 [id number] physical therapy * - Patient has multiple compression fractures - needs TENs unit and strengthening of muscles. thanks. If any questions , please call [phone]. Thanks [email or web address] Not available 01/24/2021 08:59:37 She was advised against bed rest lasting longer than four days and to continue activities as tolerated. [email or web address] Not available 11/27/2020 14:30:32 01/09/2021 [id number] She was advised against bed rest lasting longer than four days and to continue activities as tolerated. [email or web address] Not available 01/13/2021 17:16:36 01/28/2021 [id number] She was advised against bed rest lasting longer than four days and to continue activities as tolerated. [email or web address] Not available 01/28/2021 10:25:51 03/10/2021 [id number] She was advised against bed rest lasting longer than four days and to continue activities as tolerated. [email or web address] Not available 03/10/2021 15:12:58 Reason for Referral Physical Therapist Referral for Thoracic back pain Patient has multiple compression fractures - advise TENs unit and muscle strengthening exercises . thank you. Referring Physician: Pablo Hoffman, Pain Management, Encounter Date: 11/27/2020 Results Created Date Observation Date Name Description Value Unit Range Abnormal Flag Note LastModifiedBy Organization Detail LastModifiedTime 09/05/19 21 09/02/2020 XR, lumba r spine No observ ation record ed. [address] , [place], [address], 09/05/2020 16:12:44 09/07/19 21 09/05/2020 MRI, thora cic spine , w/o contr ast No observ ation record ed. [facility] [address] [place] [address], [address], 11/27/2020 14:29:28 09/13/19 21 09/12/2020 verte camillepl asty* No observ ation record ed. trever Esparza MD [address] [place] [address], [address], 11/27/2020 14:29:19 09/13/19 21 09/12/2020 verte bropl asty* No observ ation record ed. trever Esparza MD [address] [place] [address], [address], 11/27/2020 14:29:17 Result Notes None recorded. Problems Name Problem SNOMED Code Status Onset Date Resolution Date Notes Provider Name and Address Organization Details Recorded Time Spinal stenosis of lumbar region 78133405 Active Pablo goldsmith MD [address] , [address], [place], [address], [place] [facility] 9 11:47:48 Degeneration of lumbar intervertebral disc 85737703 Active Pablo goldsmith MD [address] , [address], [place], [address], [place] [facility] 11:47:58 Compression fracture of lumbar spine 793521444 Active Pablo goldsmith MD [address] , [address], [place], [address], [place] [facility] 9 11:48:13 Lumbosacral spondylosis without myelopathy 03694281 Active Pablo goldsmith MD [address] , [address], [place], [address], [place] [facility] 9 11:48:26 Problem Notes None recorded. Procedures Surgical History Date Name Laterality Status Provider Name and Address Organization Details Recorded Time 01/29/20 21 Lumbar Epidural steroid injection under fluoroscopic guidance completed Pablo Hoffman MD [address] , [address], [place], [address], [place] [facility] 01/28/2021 10:26:51 07/17/19 21 Lumbar Epidural steroid injection under fluoroscopic guidance completed Pablo Hoffman MD [address] , [address], [place], [address], [place] [facility] 07/16/2020 10:54:35 04/25/19 21 Lumbar Epidural steroid injection under fluoroscopic guidance completed Pablo Hoffman MD [address] , [address], [place], [address], [place] [facility] 04/24/2020 16:07:20 11/14/19 20 Lumbar Epidural steroid injection under fluoroscopic guidance completed Pablo Hoffman MD [address] , [address], [place], [address], [place] [facility] 11/14/2019 11:07:40 08/15/19 20 Lumbar Epidural steroid injection under fluoroscopic guidance completed Pablo Hoffman MD [address] , [address], [place], [address], [place] [facility] 08/15/2019 13:57:27 04/26/19 20 Lumbar Epidural steroid injection under fluoroscopic guidance completed Pablo Hoffman MD [address] , [address], [place], [address], [place] [facility] 04/27/2019 10:57:23 12/21/19 19 Lumbar Epidural steroid injection under fluoroscopic guidance completed Pablo Hoffman MD [address] , [address], [place], [address], [place] [facility] 12/23/2018 12:44:19 08/25/19 19 Lumbar Epidural steroid injection under fluoroscopic guidance completed Pablo Hoffman MD [address] , [address], [place], [address], [place] [facility] 08/25/2018 11:41:39 Joint Replacement completed Jennifer Olivares [place] [facility] 08/18/2018 11:00:01 Thyroid Surgery completed Jennifer Olivares [place] [facility] 08/18/2018 11:00:13 Imaging Results Imaging Date Name Status [facility] Details LastModified Time 09/02/2020 XR, lumbar spine completed [facility] [address] [place] [address] [place], [address], 09/05/2020 16:12:44 09/05/2020 MRI, thoracic spine, w/o contrast completed [facility] [address] [place] [address], [address], 11/27/2020 14:29:28 09/12/2020 vertebroplast y* [facility] [address] [place] [address], [address], 11/27/2020 14:29:19 09/12/2020 vertebroplast y* completed trever Esparza MD [address] [place] [address], [address], 11/27/2020 14:29:17 Procedure Notes None recorded. Medical Equipment None Reported. Allergies Allergen ID Allergen Name Allergen Category Reaction Reaction Severity Criticality Documentation Date Start Date Code Code System Note Provider Name and Address Organization Details Recorded Time 37243 tramadol medicatio n dizziness Not available Not available 08/18/2018 54695 RxNorm Myrna Rayawell flori [facility] 09:21:12 02564 sertralin e medicatio n Not available Not available Not available 08/18/2018 87486 RxNorm Jennifer De Leoner flori [facility] Pain Management 9 10:52:50 85658 Arthrotec medicatio n Not available Not available Not available 08/18/2018 [id number] UNK Myrna Rayawell flori, [facility] Pain Management 1 10:36:20 Medications Name Sig Start Date Stop Date Status Note LastModified by Organization Details LastModified Time Prescript ion - Prior Authoriza tion Request active Not Available Not Available Not Available celecoxib 200 mg capsule 08/18 completed Not Available Not Available Not Available amoxicill in 500 mg capsule TAKE 4 CAPSULES BY MOUTH 1 HOUR PRIOR TO DENTAL APPOINTM ENT active Not Available Not Available No t Available Colace 100 mg capsule TK 1 C PO ONCE D HS PRF CONSTIPA TION 08/14 completed Not Available Not Available Not Available acetamino phen 325 mg tablet TK 2 TS PO Q 4 H FOR 5 DAYS PRF PAIN 03/10 completed Not Available Not Available Not Available prednison e 10 mg tablet 12/20 completed Not Available Not Available Not Available tizanidin e 2 mg tablet 08/18 completed Not Available Not Available Not Available atorvasta tin 10 mg tablet TAKE 1 TABLET BY MOUTH DAILY active Not Available Not Available No t Available citalopra m 10 mg tablet TAKE 0.5 TABLET BY MOUTH DAILY active Not Available Not Available No t Available hydrocodo ne 5 mg-acetam inophen 325 mg tablet 04/20 completed Not Available Not Available Not Available meloxicam 15 mg tablet TAKE 1 TABLET BY MOUTH DAILY 01/09 completed Not Available Not Available Not Available amlodipin e 2.5 mg tablet TAKE 1 TABLET BY MOUTH DAILY 01/28 completed Per pt's PCP pt will take 5mg p.o. in the morning. Not Available Not Available Not Available acetamino phen 300 mg-codein e 30 mg tablet 08/14 completed Not Available Not Available Not Available amlodipin e 5 mg tablet TAKE 1 TABLET BY MOUTH DAILY active Not Available Not Available No t Available acetamino phen 500 mg tablet TK 1 TO 2 TS PO 2 TO 3 XD PRF PAIN active Not Available Not Available No t Available amoxicill in 500 mg tablet 04/20 completed Not Available Not Available Not Available pantopraz ole 20 mg tablet,de layed release 08/18 completed Not Available Not Available Not Available amoxicill in 875 mg tablet TAKE 1 TABLET BY MOUTH TWICE DAILY UNTIL FINISH 01/09 completed Not Available Not Available Not Available hydromorp chris 2 mg tablet 08/18 completed Not Available Not Available Not Available famotidin e 20 mg tablet 11/13 completed Not Available Not Available Not Available aspirin 325 mg tablet,de layed release TK 1 T PO BID 08/18 completed Not Available Not Available Not Available baclofen 10 mg tablet TAKE 1 TABLET BY MOUTH AT BEDTIME 01/09 completed Not Available Not Available Not Available pantopraz ole 40 mg tablet,de layed release 11/13 completed Not Available Not Available Not Available lidocaine 5 % topical patch APPLY 1 PATCH TOPICALL Y TO THE SKIN EVERY DAY. MAY WEAR UP TO 12 HOURS active Not Available Not Available No t Available gabapenti n 300 mg capsule 07/16 completed Not Available Not Available Not Available gabapenti n 100 mg capsule 08/14 completed Not Available Not Available Not Available lorazepam 1 mg tablet 1/4 to 1/2 tab as needed 01/28 completed Not Available Not Available Not Available ibuprofen 600 mg tablet Pt taking 1/2 tab daily 04/25 completed Not Available Not Available Not Available morphine 15 mg immediate release tablet 04/20 completed Not Available Not Available Not Available naproxen 500 mg tablet 08/18 completed Not Available Not Available Not Available oxycodone 5 mg tablet TK 1 T PO QID PRN 08/14 completed Not Available Not Available Not Available neomycin 3.5 mg/g-poly myxin B 10,000 unit/g-de xameth 0.1 % eye oint 08/18 completed Not Available Not Available Not Available cyclobenz aprine 5 mg tablet TK 1 T PO TID PRF PAIN 07/16 completed Not Available Not Available Not Available amoxicill in 03/10 completed For dental procedur es Not Available Not Available Not Available zoledroni c acid active Infusion every twelve months Not Available Not Available Not Available Calcium with Vitamin D active Not Available Not Available No t Available Prevnar 13 (PF) 0.5 mL intramusc ular syringe ADM 0.5ML IM UTD 11/13 completed Not Available Not Available Not Available Multi Vitamin active Not Available Not Available Not Available Fluzone High-Dose 3017-0871 (PF) 180 mcg/0.5 mL intramusc ular syringe ADM 0.5ML IM UTD 08/18 completed Not Available Not Available Not Available Fluzone High-Dose Quad (PF) 240 mcg/0.7 mL IM syringe ADM 0.7ML IM UTD 07/16 completed Not Available Not Available Not Available Vitals Date Recorded Body height Heart rate Oxygen saturation Oxygen saturation in Arterial blood by Pulse oximetry Systolic blood pressure Diastolic blood pressure Provider Name and Address Organization Details Last Updated DateTime 1 157.48 cm 81 /min 98 % 98 % 182 mm[Hg] 92 mm[Hg] Myrna Blevins [place] [facility] 1 09:31:08 Date Recorded Body height Oxygen saturation Oxygen saturation in Arterial blood by Pulse oximetry Heart rate Systolic blood pressure Diastolic blood pressure Provider Name and Address Organization Details Last Updated DateTime 1 157.48 cm 97 % 97 % 91 /min 215 mm[Hg] 85 mm[Hg] Rancho goldsmith [place] - [facility] 1 10:55:11 Date Recorded Body height Heart rate Oxygen saturation Oxygen saturation in Arterial blood by Pulse oximetry Systolic blood pressure Diastolic blood pressure Provider Name and Address Organization Details Last Updated DateTime 1 157.48 cm 89 /min 99 % 99 % 145 mm[Hg] 81 mm[Hg] Myrna Blevins [place] - [facility] 1 14:25:35 Date Recorded Body height Heart rate Oxygen saturation Oxygen saturation in Arterial blood by Pulse oximetry Systolic blood pressure Diastolic blood pressure Provider Name and Address Organization Details Last Updated DateTime 1 157.48 cm 90 /min 98 % 98 % 188 mm[Hg] 92 mm[Hg] Myrna Blevins [place] [facility] 1 09:59:11 Date Recorded Body height Heart rate Oxygen saturation Oxygen saturation in Arterial blood by Pulse oximetry Body mass index (BMI) Body weight Systolic blood pressure Diastolic blood pressure Provider Name and Address Organization Details Last Updated DateTime 2 157.48 cm 84 /min 98 % 98 % 23.8 kg/m2 93418.0 1 g 161 mm[Hg] 83 mm[Hg] Pablo goldsmith MD [address] , [address], [place], [address], [place] [facility] 2 14:30:24 Social History Question Answer Notes LastModified by Organizat ion Details LastModified Time Tobacco Smoking Status Never Smoker Not Available [facility] 11/24/2019 03:16:11 What Is Your Level Of Alcohol Consumption? None [id number] Information not available 11/24/2019 Are You Currently Employed? No [id number] Information not available 11/24/2019 Which Illicit Or Recreational Drugs Have You Used? 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 08/25/2018 [id number] Information not available 11/24/2019 Sex: Unknown Functional Status None recorded. Mental Status None recorded. Family History Relationship Description Onset Age of this Age Resolved Age Notes LastModified by Organization Details LastModified Time Father No current problems or disability [email or web address] Not available 08/18 10:58:23 Mother No current problems or disability [email or web address] Not available 08/18 10:58:23 Medical History Condition Response Hypothyroidism Arthritis Y Osteoporosis Y Gynecological HistoryNo gynecological history recorded. Obstetrics History GPAL:G 0 P 0 0 0 0 Past Encounters Encounter ID Performer Location Encounter Start Date Encounter Closed Date Diagnosis/Indication Diagnosis SNOMED-CT Code Diagnosis ICD10 Code Diagnosis Note [id number] Pablo Hoffman MD PAIN OFFICE [address] [place] [address] 08/18/2018 10:15:01 08/18/2018 13:44:22 Spinal stenosis of lumbar region 72517137 M48.061 Degenerati on of lumbar intervertebral disc 72585312 M51.36 Compressio n fracture of lumbar spine 727547040 M48.56XA Lumbosacra l spondylosis without myelopathy 90985496 M47.817 [id number] Pablo Hoffman MD PAIN OFFICE [address] [place] [address] 08/24/2018 10:51:53 08/25/2018 14:18:09 Spinal stenosis of lumbar region 20253338 M48.061 Degenerati on of lumbar intervertebral disc 98396938 M51.36 Compressio n fracture of lumbar spine 936042164 M48.56XA Lumbosacra l spondylosis without myelopathy 89771283 M47.817 [id number] Pablo Hoffman MD PAIN OFFICE [address] [place] [address] 09/15/2018 10:59:59 09/15/2018 11:46:53 Spinal stenosis of lumbar region 02318762 M48.061 Degenerati on of lumbar intervertebral disc 64555518 M51.36 Compressio n fracture of lumbar spine 084159063 M48.56XA Lumbosacra l spondylosis without myelopathy 07638468 M47.817 [id number] Pablo Hoffman MD PAIN OFFICE [address] [place] [address] 12/20/2018 15:10:51 12/23/2018 12:46:34 Spinal stenosis of lumbar region 93057828 M48.061 Degenerati on of lumbar intervertebral disc 92068858 M51.36 Compressio n fracture of lumbar spine 493823167 M48.56XA Lumbosacra l spondylosis without myelopathy 84663292 M47.817 [id number] Pablo Hoffman MD [facility] [address] [facility] [place] [address] 04/21/2019 09:44:53 04/21/2019 11:56:43 Spinal stenosis of lumbar region 53032569 M48.061 Degenerati on of lumbar intervertebral disc 98852603 M51.36 Compressio n fracture of lumbar spine 373868388 M48.56XA Lumbosacra l spondylosis without myelopathy 82395661 M47.817 [id number] Pablo Hoffman MD PAIN OFFICE [address] [facility] [place] [address] 04/26/2019 10:45:05 04/27/2019 11:00:35 Spinal stenosis of lumbar region 82975426 M48.061 Degenerati on of lumbar intervertebral disc 87090463 M51.36 Compressio n fracture of lumbar spine 275598583 M48.56XA Lumbosacra l spondylosis without myelopathy 21524445 M47.817 [id number] Pablo Hoffman MD PAIN OFFICE [address] [facility] [place] [address] 08/15/2019 13:07:46 08/15/2019 14:00:49 Spinal stenosis of lumbar region 00026524 M48.061 Degenerati on of lumbar intervertebral disc 18090037 M51.36 Compressio n fracture of lumbar spine 471250015 M48.56XA Lumbosacra l spondylosis without myelopathy 52200694 M47.817 [id number] Pablo Hoffman MD PAIN OFFICE [address] [facility] [place] [address] 11/14/2019 10:35:26 11/14/2019 16:11:23 Spinal stenosis of lumbar region 85915914 M48.061 Degenerati on of lumbar intervertebral disc 20985508 M51.36 Compressio n fracture of lumbar spine 776203455 M48.56XA Lumbosacra l spondylosis without myelopathy 33610204 M47.817 [id number] Pablo Hoffman MD PAIN OFFICE [address] [facility] [place] [address] 04/24/2020 11:24:53 04/24/2020 16:10:10 Spinal stenosis of lumbar region 72805507 M48.061 Degenerati on of lumbar intervertebral disc 92433393 M51.36 Compressio n fracture of lumbar spine 016495151 M48.56XA Lumbosacra l spondylosis without myelopathy 24450033 M47.817 [id number] Pablo Hoffman MD PAIN OFFICE [address] [facility] [place] [address] 07/16/2020 10:23:01 07/16/2020 11:24:41 Spinal stenosis of lumbar region 20405547 M48.061 Degenerati on of lumbar intervertebral disc 58974797 M51.36 Compressio n fracture of lumbar spine 723511231 M48.56XA Lumbosacra l spondylosis without myelopathy 75598114 M47.817 [id number] Pablo Hoffman MD PAIN OFFICE [address] [facility] [place] [address] 09/05/2020 09:17:16 09/05/2020 11:27:59 Compression fracture of thoracic vertebra 8520907447 104 M48.54XA [id number] Pablo Hoffmna MD [facility] [address] [facility] [place] [address] 11/27/2020 10:46:23 11/27/2020 16:00:06 Compression fracture of thoracic vertebra 7331437035 104 M48.54XA Thoracic back pain 56497 8004 M54.6 [id number] Pablo Hoffman MD [facility] [address] [facility] [place] [address] 01/09/2021 14:15:10 01/20/2021 10:34:58 Spinal stenosis of lumbar region 84398757 M48.061 Degenerati on of lumbar intervertebral disc 74743378 M51.36 Compressio n fracture of lumbar spine 054099764 M48.56XA Lumbosacra l spondylosis without myelopathy 88856431 M47.817 [id number] Pablo Hoffman MD PAIN OFFICE [address] [facility] [address] 01/28/2021 09:46:18 01/28/2021 13:34:05 Spinal stenosis of lumbar region 27574303 M48.061 Degenerati on of lumbar intervertebral disc 24395939 M51.36 Compressio n fracture of lumbar spine 210986429 M48.56XA Lumbosacra l spondylosis without myelopathy 65238780 M47.817 [id number] Pablo Hoffman MD SV PAIN OFFICE [address] [facility] [place] [address] 03/10/2021 14:21:44 03/10/2021 15:29:40 Spinal stenosis of lumbar region 76651935 M48.061 Degenerati on of lumbar intervertebral disc 97548931 M51.36 Compressio n fracture of lumbar spine 048791930 M48.56XA Lumbosacra l spondylosis without myelopathy 35062837 M47.817 Health Concerns Section Related Observation LastModified by Organization Detai ls LastModified Time None Recorded Concern Status LastModified by Organization Details LastModified Time None Recorded Advance Directives Directive None Recorded Payers Encounter Date Sequence Insurance Name Policy Number Policy Wyman Covered Member ID Wyman Member ID Guarantor Name 09/05/2020 2 [place] [id number] Sabrina Valdez [id number] Sabrina Courtney 09/05/2020 1 [place] [employer] Sabrinanorma Valdez [id number] Sabrina Courtney 11/27/2020 2 [place] [id number] Sabrina Courtney [id number] Sabrina Courtney 11/27/2020 1 [place] [employer] Sabrina Rupal Valdez [id number] Sabrina Courtney 01/09/2021 2 [place] [id number] Sabrina Courtney [id number] Sabrina Donaarsmonique 01/09/2021 1 [place] [employer] Sabrina Rupal Valdez [id number] Sabrina Valdez 01/28/2021 2 [place] [id number] Sabrina Valdez [id number] Sabrina Valdez 01/28/2021 1 [place] [employer] Sabrina Valdez [id number] Sabrina Valdez 03/10/2021 2 [place] [id number] Sabrina Valdez [id number] Sabrina Valdez 03/10/2021 1 [place] [employer] Sabrina Valdez [id number] Sabrina Valdez Notes Date Note Type Note Provider Name and Address Organization Details Recorded Time 09/05/2020 text/html She is here for a follow up. She is accompanied by her daughter for today's visit and is interpreting today. She states she had ants in her house and was cleaning up and bent down and started to have severe pain in her low back. She had a X-ray at [facility] which showed a new compression fracture at T11 level. She is wearing a back brace today and states her pain level is high. She has radiating pain in her sides . She has no history of bladder or bowel incontinence. Pablo Hoffman MD [address] [facility] , [facility] [address], [place], [address], [facility] Pain Management 09/05/2020 13:12:28 11/27/2020 text/html She is here for a follow up. She had a kyphoplasty done at [facility] for a L2 vertebral fracture. She states she is still having upper back pain. She states her low back pain is now intermittent. She has no radiating leg pain today. She has no history of bladder or bowel incontinence. Pablo Hoffman MD [address] [facility] , [address], [place], [address], [facility] Pain Management 11/28/2020 08:35:19 01/09/2021 text/html She is here for a follow up. She states she was doing well after second lumbar epidural steroid injection under fluoroscopic guidance. She went on a trip and fell and has been in severe low back pain. She sustained a compression fracture of L1 and is S/P Kyphoplasty with Dr. Da Silva and was doing well. She then had some persistent pain and had a MRI which showed new compression fracture of T 12 vertebrae and she subsequently had another kyphoplasty on 09/28. She still continues to have pain in the right side of her low back. She is using a walker to walk but states laying down is her most severe pain. She had physical therapy at [place] and was in severe pain . She had high blood pressure and had an anxiety attack and had to go to the ER. She states she wants another steroid injection. She feels the last injection helped. Pablo Hoffman MD [address] [facility] , [address], [place], [address], [facility] - Pain Management 01/20/2021 11:02:39 01/28/2021 text/html She is here for a repeat lumbar epidural steroid injection under fluoroscopic guidance. Pablo Hoffman MD [address] [facility] , [address], [place], [address], [place] - [place] Management 01/28/2021 13:57:16 03/10/2021 text/html This is a follow up after a lumbar epidural steroid injection under fluoroscopic guidance.She reports good pain benefit. She states she felt great the day after the injection but pain is slowly coming back. She has no radiating pain now. She does not have thoracic pain anymore. She has no history of bladder or bowel incontinence. Pablo Hoffman MD [address] [facility] , [address], [place], [address], [place] - [place] Management 03/10/2021 15:38:53 OBGyn Episode No OBEpisode recorded.
--- OUTSIDE RECORDS SUMMARY | 2024-04-07 16:17 | XMS_ITS | Clinical Summary ---
Author Organization [facility] Address [address] [place] [address] Care Team Providers Care Rn Dermatology Name Role Phone Milady Miranda MD Primary Care Provider [phone] Medications Medication Sig Dispensed Refills Start Date End Date Status acetaminophen (TYLENOL) 325 MG tablet Take 2 tablets (650 mg total) by mouth as needed. 0 10/01/2017 Active amLODIPine (NORVASC) tablet 5 mg Take 1 tablet (5 mg total) by mouth daily. 0 12/19/2021 Active aspirin 81 MG EC tablet Take 1 tablet (81 mg total) by mouth as needed. 0 Active atorvastatin (LIPITOR) tablet 10 mg Take 1 tablet (10 mg total) by mouth daily. 0 10/01/2017 Active Calcium Carbonate-Vitamin D 600-5 MG-MCG TABS Take 1 tablet by mouth daily. 0 Active citalopram (CeleXA) 10 MG tablet Take 0.5 tablets (5 mg total) by mouth daily. 0 12/19/2021 Active ibuprofen 100 MG tablet Take 1 tablet (100 mg total) by mouth as needed. 0 Active psyllium (METAMUCIL) 58.6 % packet Take 1 packet by mouth as needed. 0 Active Active Problems Problem Noted Date Diagnosed Date Osteoporosis not affecting current episode of ca re 01/12/2022 Social History Tobacco Use Types Packs/Day Years Used Date Smoking Tobacco: Never Assessed Sex and Gender Information Value Date Recorded Sex Assigned at Female 01/06/2022 1:56 PM EST Gender Identity Not on file Sexual Orientation Not on file Job Start Date Occupation Industry Not on file Not on file Not on file Last Filed Vital Signs Vital Sign Reading Time Taken Comments Blood Pressure 151/85 03/17/2022 1:58 PM EST Pulse 81 03/17/2022 1:58 PM EST Temperature 36.6 ??C (97.9 ??F) 03/17/2022 1:58 PM ES T Respiratory Rate 20 01/14/2022 12:58 PM EST Oxygen Saturation 98% 03/17/2022 1:58 PM EST Inhaled Oxygen Concentration - - Weight 58 kg (127 lb 12.8 oz) 01/14/2022 12:58 P M EST Height - - Body Mass Index - - Plan of Treatment Health Maintenance Due Date Last Done Comments COVID-19 Vaccine (#1) 1936 Depression Screening 1948 Preventative Health Evaluation 01/18/1954 DTap / Tdap / Td (1 - Tdap) 01/18/1955 Shingrix-Zoster Vaccine (1 of 2) 01/18/1986 Fall Risk Assessment 01/18/2001 Osteoporosis Screening (DEXA Scan) 01/18/2001 Pneumococcal Vaccine (1 of 1 - PCV) 01/18/2001 RSV Adult > 60+ Yrs or Pregn ant (1 - 1-dose 75+ series) 01/18/2011 Influenza Vaccine (#1) 2023 Hepatitis B Vaccines Aged Out No long er eligible based on patient's age to complete this topic RSV Ped < 20 months Aged Out No longe r eligible based on patient's age to complete this topic Care Teams Rn Dermatology Relationship Specialty Start Date End Date Milady Miranda MD [address] [facility] [place] [address] PCP - General Professor Sculpture 01/06/22
--- OUTSIDE RECORDS SUMMARY | 2024-04-07 16:17 | XMS_ITS | Data Portability ---
Author Organization [facility], Main Office Address [address] [facility] [facility] [address], [address] [place] [address] Care Team Providers Care Slitter Creaser Slotter Operator Name Role Phone KRANTHI SY - 3RD FLOOR OTHER MELISSA AVITIA Primary Care Provider Assessment No assessment recorded. Plan of Treatment Reminders Order Date Submit Date Provider Last Modified By Organization Details Last Modified Time Details Appointments None record ed. Lab None record ed. Referral None record ed. Procedures None record ed. Surgeries None record ed. Imaging None record ed. Medication Orders None record ed. Patient TargetsNo targets recorded. Patient InstructionsNo instructions recorded. Reason for Referral None Reported. Problems Name Problem SNOMED Code Status Onset Date Resolution Date Notes Provider Name and Address Organization Details Recorded Time Osteoporoti c fracture of sacral vertebra 2960363516717 9106 Active 2021 Denita Corrigan null, [facility] 2 13:52:01 Depressive disorder 10709844 Active 2021 Denita Corrigan null, [facility] 2 13:52:42 Mixed hyperlipide abdi 156630870 Active 2021 Denita Corrigan null, [facility] 2 13:52:43 Essential hypertensio n 91029245 Active 2021 Denita Corrigan null, [facility] 2 13:52:52 Low back pain 334265393 Active 2021 Denita Corrigan null, [facility] 2 14:23:30 Spinal stenosis of lumbar region 75447925 Active 2021 Selina Palm MD [address] [facility] [address], [address], [place], [address], [facility] 2 12:15:00 Problem Notes None recorded. Medical Equipment None Reported. Allergies Allergen ID Allergen Name Allergen Category Reaction Reaction Severity Criticality Documentation Date Start Date Code Code System Note Provider Name and Address Organization Details Recorded Time 64163 diclofena c Not available Not available Not available Not available 07/09/2021 3355 RxNorm Not Available Not Available Not Available 16321 misoprost ol medicatio n Not available Not available Not available 07/09/2021 75655 RxNorm Not Available Not Available Not Available 06867 sertralin e medicatio n Not available Not available Not available 07/09/2021 67399 RxNorm Not Available Not Available Not Available 26194 tramadol medicatio n Not available Not available Not available 07/09/2021 58103 RxNorm Not Available Not Available Not Available 60209 prednison e medicatio n Not available Not available Not available 07/09/2021 8640 RxNorm Not Available Not Available Not Available 96354 oxycodone medicatio n Not available Not available Not available 07/11/2021 7804 RxNorm Not Available Not Available Not Available Vitals Date Recorded Heart rate Oxygen saturation Oxygen saturation in Arterial blood by Pulse oximetry Systolic blood pressure Diastolic blood pressure Provider Name and Address Organization Details Last Updated DateTime 2 67 /min 96 % 96 % 146 mm[Hg] 56 mm[Hg] Denita Corrigan [place] [facility] 2 13:49:33 Date Recorded Heart rate Respiratory rate Body temperature Oxygen saturation Oxygen saturation in Arterial blood by Pulse oximetry Systolic blood pressure Diastolic blood pressure Provider Name and Address Organization Details Last Updated DateTime 2 84 /min 20 /min 97.4 [degF] 98 % 98 % 159 mm[Hg] 86 mm[Hg] VINCENT RAYGOZA [address] [facility], [address], [place], [address], [facility] 2 15:23:14 Date Recorded Body temperature Oxygen saturation Oxygen saturation in Arterial blood by Pulse oximetry Provider Name and Address Organization Details Last Updated DateTime 07/14/2021 97.7 [degF] 97 % 97 % VINCENT RAYGOZA [address] [facility], [address], [place], [address] , [facility] 07/14/2021 15:06:49 Date Recorded Heart rate Respiratory rate Body temperature Oxygen saturation Oxygen saturation in Arterial blood by Pulse oximetry Body height Body mass index (BMI) Body weight Systolic blood pressure Diastolic blood pressure Provider Name and Address Organization Details Last Updated DateTime 2 86 /min 18 /min 97.7 [degF] 99 % 99 % 154.94 cm 24.6 kg/m2 18839.0 1 g 126 mm[Hg] 76 mm[Hg] Selina Palm MD [address] [facility], [address], [place], [address], [facility] 2 11:30:47 Social History Question Answer Notes LastModified by Organizat ion Details LastModified Time Tobacco Smoking Status Never Smoker Denita Coloncrystal ruby, [facility] 07/09/2021 14:19:46 Do You Have An Advance Directive? Yes Information not available 07/09/2021 What Is Your Level Of Alcohol Consumption? None Information not available 07/09/2021 What Is Your Code Status? DNR/DNI Information not available 07/09/2021 Where Do You Live? [facility] Only On 1st Floor. Information not available 07/15/2021 Legal Guardian? No Informati on not available 07/15/2021 Do You Have A Medical Power Of Loss Prevention Representative? Yes Information not available 07/15/2021 What Was The Date Of Your Most Recent Tobacco Screening? 07/15/2021 Information not available 07/15/2021 Do You Have An Out Of Hospital DNR? Yes Information not available 07/15/2021 What Is Your Relationship Status? Information not available 07/15/2021 Do You Use Any Illicit Or Recreational Drugs? No Information not available 07/15/2021 Has Tobacco Cessation Counseling Been Provided? No N/a As Pt Is Non-smok er Information not available 07/15/2021 Do You Or Have You Ever Used Any Other Forms Of Tobacco Or Nicotine? No Information not available 07/15/2021 Sex: Unknown Functional Status None recorded. Mental Status None recorded. Family History Nothing Reported Notes:non-contributory Medical History No medical history recorded. Gynecological HistoryNo gynecological history recorded. Obstetrics History GPAL:G 0 P 0 0 0 0 Immunizations Vaccine Type Date Status Note Provider Nam e and Address Organization Details Recorded Time RSV, recombinant, protein subunit RSVpreF, adjuvant reconstituted, 0.5 mL, PF 3 completed Aimee Mejia [facility] 06/03/2023 11:20:13 Pneumococcal conjugate PCV 13 0 completed Aimee Mejia [facility] 06/03/2023 11:20:26 Influenza, adjuvanted, quadrivalent, PF 2 completed Aimee Mejia [facility] 06/03/2023 11:20:45 Influenza, adjuvanted, quadrivalent, [facility] 11:20:55 COVID-19, mRNA, LNP-S, bivalent, PF, 30 mcg/0.3 mL dose 1 completed Aimee Mejia [facility] 06/03/2023 11:21:16 COVID-19, mRNA, LNP-S, bivalent, PF, 30 mcg/0.3 mL dose 1 completed Aimee Mejia [facility] 06/03/2023 11:21:21 COVID-19, mRNA, LNP-S, bivalent, PF, 30 mcg/0.3 mL dose 1 completed Aimee Mejia [facility] 06/03/2023 11:21:28 COVID-19, mRNA, LNP-S, bivalent, PF, 30 mcg/0.3 mL dose 2 completed Aimee Mejia [facility] 06/03/2023 11:21:41 COVID-19, mRNA, LNP-S, PF, tin-sucrose, 30 mcg/0.3 mL 3 [facility] 11:21:52 zoster live 5 [facility] 11:22:25 Past Encounters Encounter ID Performer Location Encounter Start Date Encounter Closed Date Diagnosis/Indication Diagnosis SNOMED-CT Code Diagnosis ICD10 Code Diagnosis Note [id number] Denita Corrigan [facility] [address] [address] 07/09/2021 13:40:50 07/11/2021 14:41:11 Osteoporotic fracture of sacral vertebra [id number] 2034236 M80.08XA Pain control with Tylenol, Salonpas patchPT OT eval and treatMonit or Essential hypertension 27520595 I10 Norvasc 5 mg dailyMonit or bp Mixed hyperlipidemia 267 433435 E78.2 Atorvastat in 10 mg daily Depressive disorder 3548 9007 F32.A Sertraline 5 mg dailyMonit or moodPsych eval prn Low back pain 212407334 M54.59 No narcotic pain medication -patient reacts poorly to thisConsid er pain management referral if pain not improvingC ontinue tylenolMon itor Recurrent falls 37789443 2 R29.6 PT OT eval and treat [id number] VINCENT RAYGOZA [facility] [address] [address] 07/11/2021 15:02:45 07/14/2021 15:37:35 Low back pain 305529613 M54.59 tylenol arthritis 2 tabs q 8 hrs ibuprofen 600 mg q 6 hrs prn salon pas to back qd discussed neurontin with pt and she wants to try as she is having nerve pain-noted as where she points to her pain neurontin 100 mg tid will be added dc of oxycodone as she notes she falls with it-added as allergy monitor pain [id number] VINCENT RAYGOZA [facility] [address] [address] 07/14/2021 09:04:11 07/16/2021 15:13:28 Low back pain 767516519 M54.59 tylenol arthritis 2 tabs q 8 hrs prn ibuprofen 600 mg q 6 hrs prn salon pas to back qd neurontin 100 mg tid was added Wednesday and she hasn't been taking as she notes bad reaction unclear what reaction was if any but will discontinu e regardless monitor pain-noted relief with prn medication s [id number] Selina Palm MD [address] [place] [address] 07/15/2021 11:20:07 07/17/2021 08:19:40 Osteoporotic fracture of sacral vertebra 5801839293 7196802 M80.08XA As above.Cont inue vitamin D 1000 IU qd and MVI qd for osteoporos is. Essential hypertension 91989035 I10 Good control on amlodipine 5 mg qdMonitor BP and labs as outpt. Mixed hyperlipidemia 267 247682 E78.2 Continue atorvastat in 10 mg qd.F/U as outpt. Depressive disorder 3548 9007 F33.0 Continue sertraline 5 mg qd.Monitor moodF/U as outpt. Recurrent falls 44047183 2 R29.6 Will continue PT/OT as outpt.Cont inue fall precaution s. Spinal ana m nosis of lumbar region 66067951 M48.062 I suspect this is the primary cause of pain. Will need to f/u with pain management (has seen Dr. Hoffman in the past for injections ) and/or neurosurge on. WIll leave for PCP to arrange these referrals. Continue APAP ER 1300 mg q 8 hrs prn, ibuprofen 600 mg q 6 hrs prn and salon pas to back qdWill be getting home PT, f/u with PCP, appt made for 08/14, pt will call to get on cancellati on list. Health Concerns Section Related Observation LastModified by Organization Detai ls LastModified Time None Recorded Concern Status LastModified by Organization Details LastModified Time None Recorded Advance Directives Directive Y: Payers Encounter Date Sequence Insurance Name Policy Number Policy Wyman Covered Member ID Wyman Member ID Guarantor Name 07/09/2021 1 [place] [employer] Sabrina Valdez [id number] Sabrina Valdez 07/11/2021 1 [place] [employer] G[employer] SERVICES Sabrina Valdez [id number] Sabrina Valdez 07/11/2021 2 [place] [id number] Sabrina Valdez [id number] Sabrina Valdez 07/14/2021 1 [place] [employer]ERNMENT [place] Sabrina Valdez [id number] Sabrina Valdez 07/14/2021 2 [place] [id number] Sabrina Valdez [id number] Sabrina Valdez 07/15/2021 1 [place] [facility] SERVICES Sabrina Valdez [id number] Sabrina Valdez 07/15/2021 2 [place] [id number] Sabrina Valdez [id number] Sabrina Valdez Notes Date Note Type Note Provider Name and Address Organization Details Recorded Time 07/09/2021 text/html 86 yo female wit h hx compression fractures, htn, hld, osteoporosis admit from hospital after presenting with low back pain, chest pressure and SOB. Patient with MRI in May which revealed known disc disease with left sided neuroforaminal stenosis with L5 nerve root compression as well as R sacral insufficiency fracture. CT of LS in hospital showed healing R sacral insufficiency fracture. Work-up negative for ACS, pain improved with oral oxycodone. Admit to this facility for continued care and therapy. Denita ruby, [facility] 07/09/2021 14:24:18 07/11/2021 text/html A 86 year old fe male being seen for a acute rounding visit. Patient is noted to have continued back pain where the nerves come out and down her leg. She notes narcotics are not good for her as she falls. We discussed at length neurontin and she agrees to try. She uses her tylenol arthritis and ibuprofen also. Will check her again on wednesday to see if improvement. CRISTOFER CASTAÑEDA, BUSINESS RELATIONS MANAGER [address] [facility] [address] [address], [address], [place], [address], [facility] 07/11/2021 15:25:10 07/14/2021 text/html A 86 year old fe male being seen for a acute rounding visit. Patient is noted to be doing well. She ambulates independently about the unit. She uses tylenol arthritis and ibuprofen prn with good effect. She is looking at going home in the next few days. She denies any concerns except that she did not like the gabapentin and it was discontinued. VINCENT RAYGOZA [address] [facility] [address], [address], [place], [address], [facility] 07/14/2021 15:10:41 07/15/2021 text/html This is an 86 yo woman who has been here for rehab after an ED visit for severe back pain from compression fxs and spinal stenosis. She had been being evaluated over the past 2 months for increasing back pain. Xray of LS spine in 05/2021 showed old compression fractures involving T12, L1, and L2 with cement augmentation. There is mild scoliosis convex left. There is a superior endplate compression fracture of L4 with approximately 30% loss of height within the mid vertebral body. This was present on previous study of September 02, 2020. There is an approximately 60% loss of height which compression fracture of T11. This was present on study of September 02, 2020. No definite acute fracture is appreciated. Bilateral facet arthropathy is seen L3-S1. MRI done a week later confirmed these findings and added evidence of right sacral insufficiency fx, moderate to severe neural foraminal stenosis L1-S1 and T11-12, worst at L4-5, osteophyte that abuts L5 nerve root and mild trefoil spinal stenosis L3-4.In ED she was uncomfortable moving around, had difficulty walking due to pain. Neuro was grossly intact and imaging showed no new findings. It was decided she would benefit from STR. Transferred here on 07/09.Since here she was tried on oxycodone and then gabapentin, neither of which she tolerated. So she was continued on home meds of APAP, ibuprofen and lidocaine patch. Pain has improved with PT and she feels ready to go home. Services have been set up, more extensive than [facility] [employer] [facility] which should help also. She says that pain is 6-7, but had been 9-10 before. She says pain starts in left sacroiliac area and goes down lateral left leg to calf. No weakness.Her PMH includes HTN, spinal stenosis, multiple compression fxs-s/p kyphoplasty on several, depression, HLD, osteoporosis, OA, and s/p right THR. Selina Palm MD [address] [facility], [address], [place], [address], [facility] 07/15/2021 12:19:43 OBGyn Episode No OBEpisode recorded.
== END 2024-04-07 14:33 | disposition home or self-care (01) ==
PROVIDERS: PCP Internal Medicine; Visit Provider Internal Medicine
DX: R21 Rash and other nonspecific skin eruption (principal); I10 Essential (primary) hypertension

== ENCOUNTER → 2024-04-07 14:03 | Outpatient (BNVA) | payer MEDICARE, SELFPAY | PROVIDERS: PCP Internal Medicine; Visit Provider Internal Medicine | DX: R21 Rash and other nonspecific skin eruption (principal); I10 Essential (primary) hypertension | CPT/HCPCS: 96127; 99212 ==

== ENCOUNTER 2024-09-14 09:44 | Emergency (ER) | payer MEDICARE, SELFPAY ==
--- NOTE | ~2024-09-14 | CT_ITS ---
EXAMINATION: CT HEAD WITHOUT CONTRAST CLINICAL INFORMATION: dizziness x2 weeks COMPARISON: May 24, 2021. TECHNIQUE: Contiguous axial imaging was performed from the skull base to vertex without intravenous administration of contrast. This CT examination was performed using dose optimization techniques as appropriate, variously including the following: *Automated exposure control *Adjustment of mA and/or kV according to patient size (this includes techniques or standardized protocols for targeted exams where dose is matched to indication/reason for exam; i.e. extremities or head) *Use of iterative reconstruction technique DLP: 652 mGy-cm FINDINGS: No acute intracranial hemorrhage, mass effect, midline shift, hydrocephalus or herniation. Sellar/suprasellar region demonstrated no gross masses. Normal position of the cerebellar tonsils. Bilateral multifocal patchy and confluent deep periventricular white matter hypodensities involving centrum semiovale and ham radiata. Koenig-white matter differentiation is normal. Calcified plaques in the cavernous supraclinoid segments both ICAs. There is a focal, 3 mm hyperdensity/calcification in the medial aspect of the left eyeball. No air-fluid levels in the paranasal sinuses. There is a poor pneumatization of the paranasal sinuses. Focal calcification in the inferior left eyeball. Tympanic cavities and mastoid cells are aerated. CT/CT head/brain wo IV con IMPRESSION: No acute intracranial hemorrhage. Global atrophy. Small vessel occlusive disease. Electronically signed by: You Lipscomb MD 09/14/2024 01:42 PM EDT
--- NOTE | ~2024-09-14 | XR_ITS ---
EXAMINATION: XR CHEST 2 VIEWS HISTORY: weakness COMPARISON: Comparison is made with the prior examination dated 10/29/2023. FINDINGS: PA and lateral views of the chest are submitted. The lungs are hyperinflated, consistent with COPD. The lungs are clear. There is right-sided pleural thickening. There is no pleural effusion, pneumothorax, or pulmonary vascular congestion. The heart is normal in size. The aorta is tortuous. Again seen are multiple thoracic compression fractures. The patient is status post multilevel lower thoracic kyphoplasty. XR/XR chest 2V IMPRESSION: COPD. No acute cardiopulmonary abnormality. Electronically signed by: Zurdo Patton MD 09/14/2024 12:44 PM EDT
[2024-09-14 09:56] VITALS: BP 168/86; BP 180/89; PULSE 104; PULSE 92; RESP 16; TEMP 36.9; O2SAT 98; BMI 23.0
--- NOTE | 2024-09-14 10:05 | ECG_ITS ---
Test Reason : DIZZINESS Blood Pressure : */* mmHG Vent. Rate : 86 BPM Atrial Rate : 86 BPM P-R Int : 150 ms QRS Dur : 82 ms QT Int : 374 ms P-R-T Axes : 64 -9 55 degrees QTcB Int : 447 ms Normal sinus rhythm Normal ECG When compared with ECG of 08-Jul-2021 06:23, No significant change was found Referred By: Generic ED Physician Electronically Signed By: JOSE LUIS CLEMENTS
[2024-09-14 10:23] LABS: MANUAL DIFF FLAG NO
[2024-09-14 10:24] LABS: Hematocrit 37.4 % (37.0-47.0); Hemoglobin 12.9 g/dl (12.0-16.0); Imm Gran Abs Auto 0.02 X10*3/uL (0.00-0.03); Imm Gran Pct Auto 0.4 % (0.0-0.4); Lymphocytes Absolute Auto 1.1 X10*3/uL (1.2-4.9); Mean Corpuscular HGB Conc 34.5 g/dl (31.0-35.0); Mean Corpuscular Hemoglobin 32.3 pg (27.0-33.0); Mean Corpuscular Volume 93.5 fL (80.0-98.0); NRBC Abs Auto 0.000 X10*3/uL (0.0-0.012); NRBC Pct Auto 0.0 /100WBC (0.0-0.2); Platelet Count 198 X10*3/uL (160-400); Red Blood Count 4.00 X10*6/uL (4.20-5.50); White Blood Count 4.7 X10*3/uL (4.8-10.8)
[2024-09-14 10:37] VITALS: BP 166/81; BP 179/84; PULSE 80; PULSE 83
[2024-09-14 10:38] VITALS: BP 163/80; PULSE 85
[2024-09-14 10:46] LABS: Alanine Aminotransferase 19 U/L (0-31); Albumin Level 4.2 g/dL (3.5-5.0); Alkaline Phosphatase 51 U/L (39-117); Anion Gap 12 (12-20); Aspartate Amino Transferase 27 U/L (5-31); Blood Urea Nitrogen 16 mg/dL (9-16); Calcium 8.5 mg/dL (8.4-10.2); Carbon Dioxide 25 mmol/L (22-29); Chloride 107 mmol/L (96-108); Creatinine Clr Calc Pharmacy 34.2; Estimated Glomerular Filt Rate 56; Potassium 4.0 mmol/L (3.3-5.1); Sodium 140 mmol/L (135-145); Total Protein 6.6 g/dL (6.5-8.0)
[2024-09-14 10:50] LABS: Appearance Urine Clear; Glucose Urine UA Negative (Negative); PH 7.5 (5.0-9.0); Specific Gravity - Urine <= 1.005 (1.005-1.025); UMIC TRIGGER UACC YES
[2024-09-14 11:09] LABS: UACC Culture Trigger YES
--- NOTE | 2024-09-14 11:15 | ED.GENADULT ---
HPI - General Adult General Chief complaint: General Medical Stated complaint: WEAK,DIZZY X2W,WORSE TODAY,LIVES ALONE/NERVOUS Time Seen by Provider: 09/14/24 11:11 Source: patient Mode of arrival: ambulatory Limitations: no limitations History of Present Illness ED Provider: ENA MAYBERRY PA-C HPI narrative: 89 year old female with pmhx significant for HLD, HTN, DJD, GERD, depression, osteoporosis presents to the ED today for evaluation of increased weakness x2 weeks. Additionally reports intermittent dizziness x1 week. She is unable to describe this to me - states she feels off . Reports dizziness is only present when she gets up to ambulate. Resolves with rest. She reports an episode of chest tightness 1 week ago which lasted for a few days before completely resolving. Reports history of previous, she believes this is due to anxiety. She is not currently on any medication for her anxiety. She reports increased stress recently. She typically ambulates with a cane and walker at baseline secondary to previous vertebral compression fractures. No recent falls/ trauma. She tells me she lives home along and becomes anxious that she may fall. Related Data Home Medications ?Medication ?Instructions ?Recorded ?Confirmed cholecalciferol (vitamin D3) 25 25 mcg PO DAILY 07/08/21 04/07/24 mcg (1,000 unit) tablet kkoopdziibrw-leuivutv-eaxjhv tablet 1 tab PO DAILY 07/08/21 04/07/24 psyllium seed (sugar) oral powder 1 tbsp PO DAILY 12/29/23 04/07/24 (Metamucil (sugar) oral powder) Previous Rx's ?Medication ?Instructions ?Recorded amlodipine 5 mg tablet 5 mg PO DAILY #90 tabs 03/13/24 prednisone 10 mg tablet 10 mg PO DAILY #5 tabs 04/07/24 triamcinolone acetonide 0.1 % 1 appl topical DAILY #80 grams 04/07/24 topical cream atorvastatin 10 mg tablet 10 mg PO DAILY #90 tabs 09/08/24 Allergies Allergy/AdvReac Type Severity Reaction Status Date / Time diclofenac (From ARTHROTEC) Allergy Severe ANXIETY/WEA Verified 09/14/24 09:58 KNESS/CONFU JOSHUA misoprostol (From ARTHROTEC) Allergy Severe ANXIETY/WEA Verified 09/14/24 09:58 KNESS/CONFU JOSHUA sertraline (SERTRALINE) Allergy Severe ANXIETY/WEAKNESS/CONFUSION, Verified 09/14/24 09:58 dizziness tramadol (TRAMADOL) Allergy Severe ANXIETY/CON Verified 09/14/24 09:58 FUSION/WEAK NESS prednisone AdvReac Unknown psychosis Verified 09/14/24 09:58 Review of Systems Review of Systems: Yes all other systems are reviewed and are negative [facility] Past Medical History Attestation statement: The following information was validated with the patient. Source: old records reviewed and nursing notes reviewed Medical History Compression deformity of vertebra Acute right hip pain Status post fall Vitamin D deficiency HTN (hypertension) DJD (degenerative joint disease), lumbar Compression fracture Age related osteoporosis GERD (gastroesophageal reflux disease) Depression Hyperlipemia Surgical History H/O kyphoplasty History of thyroid surgery History of total hip replacement Family History Family History Father CVD (cardiovascular disease) Heart disease Mother CVD (cardiovascular disease) Heart disease Maternal Grandfather No problems noted. Maternal Grandmother No problems noted. Paternal Grandfather No problems noted. Paternal Grandmother No problems noted. Brother No problems noted. Daughter No problems noted. Son No problems noted. Social History Social History Housing: House Alcohol intake: never Patient Tobacco Use Status: Never used Tobacco e-Cigarette/Vaping Use: Never Used Advance Directives Date on File: 07/08/21 service: No Current occupational status: retired Sexual orientation: Straight/Heterosexual Gender identity: Female Cognitive needs: No Hearing needs: No Vision needs: No Physical Exam ED Vital Signs: Vital Signs - 24 hr 09/14/24 09:56 09/14/24 10:37 09/14/24 10:37 Temperature 98.5 F Pulse Rate 92 80 83 Respiratory Rate 16 Blood Pressure 180/89 H 179/84 H 166/81 H Pulse Oximetry 98 Oxygen Delivery Method Room Air 09/14/24 10:38 Temperature Pulse Rate 85 Respiratory Rate Blood Pressure 163/80 H Pulse Oximetry Oxygen Delivery Method BMI result Body Mass Index 23.0 hypertensive, vitals otherwise wnl General: Well appearing, in no acute distress. Skin: Warm, dry, intact. No rashes or lesions. Head: Normocephalic, atraumatic. EENT: Hearing is intact b/l. Conjunctiva clear. Sclera is anicteric. PERRLA. EOM intact. Moist mucous membranes.? Neck: Supple without LAD. FROM. Trachea midline.? Cardiac: Chest wall symmetric. RRR Lungs: Normal respiratory effort without accessory muscle use. CTA bilaterally Abdomen: Soft, non-tender, non-distended. No rebound tenderness or guarding. Positive BS x4. Back: No midline spinous or paraspinal tenderness. No step off deformity. Ext: Upper and lower extremities atraumatic, without tenderness, deformity, swelling or erythema. no peripheral edema. Neuro: AOx3. Normal speech. NIH 0. Strength 3/5 intact throughout. No saddle anesthesia. Sensation intact to light touch. NV intact distally. Ambulating with steady gait w/ cane. Course Course Course Narrative: CBC showing slight leukopenia to 4.7. No anemia, H and H stable. Chemistry without acute electrolyte abnormality requiring intervention. No CONSTANZA. Liver function at baseline. Troponin undetectable. EKG showing normal sinus rhythm, rate of 86 beats per minute, QT 374, QTC 447, no acute ischemic changes or ST elevations. Urine without infection. CT head unremarkable, chest x-ray with findings consistent with COPD, no acute infiltrate or consolidation to suggest pneumonia. No effusion. > discussed all workup results with patient. Her workup is quite reassuring. As patient lives alone and reports concern due to her generalized weakness, we did discuss PT/case management evaluation. She was initially agreeable however after placing these orders, patient called me back to bedside and expressed that she was very tired and would just like to return home. Used shared decision-making to determine disposition. She is well-appearing, ambulating with steady gait using her cane. Her exam is nonfocal and I do not feel as though she requires further workup in our ED today. Her friend who is at bedside with her will be driving her home today. Patient has remained stable throughout ED visit today. Discussed worrisome signs and symptoms and when to return to the ED. All questions answered at this time. Patient is agreeable with disposition and stable for discharge. Medical Decision Making Medical Decision Making MDM Narrative: 89 year old female with pmhx significant for HLD, HTN, DJD, GERD, depression, osteoporosis presents to the ED today for evaluation of increased weakness x2 weeks. Hypertensive, vitals are otherwise WNL. She is well-appearing and in no acute distress. Ambulating with steady gait assisted by cane. Exam nonfocal. Cerebellum intact. Differential diagnosis includes anemia, electrolyte abnormality, dehydration, orthostatic hypotension, pneumonia, urinary tract infection, intracranial pathology, arrhythmia Carlos for labs, ekg, CXR, CT head/brain Differential Diagnosis Differential Diagnoses: The differential diagnosis associated with the presentation includes as above Admission/Observation Consideration of admission/observation: Escalation of care including admission/observation considered Lab Data MDM Lab Attestation statement: I reviewed the patient's lab results. as above. 09/14/24 10:18 09/14/24 10:18 Labs: Lab Results 09/14/24 09/14/24 Range/Units 10:18 10:44 WBC 4.7 L (4.8-10.8) X10*3/uL RBC 4.00 L (4.20-5.50) X10*6/uL Hgb 12.9 (12.0-16.0) g/dl Hct 37.4 (37.0-47.0) % MCV 93.5 (80.0-98.0) fL MCH 32.3 (27.0-33.0) pg MCHC 34.5 (31.0-35.0) g/dl RDW 13.4 (11.0-16.0) % Plt Count 198 (160-400) X10*3/uL MPV 9.4 (9.4-12.3) fL Immature Gran % (Auto) 0.4 (0.0-0.4) % Neut % (Auto) 59.7 (45-73) % Lymph % (Auto) 24.1 (20-40) % [place] % (Auto) 10.9 (2-11) % Eos % (Auto) 4.3 H (0-4) % Baso % (Auto) 0.6 (0-2) % Lymph # (Auto) 1.1 L (1.2-4.9) X10*3/uL [place] # (Auto) 0.5 (0.1-1.2) X10*3/uL Eos # (Auto) 0.2 (0.0-0.4) X10*3/uL Baso # (Auto) 0.0 (0.0-0.2) X10*3/uL Abs Immat Gran (auto) 0.02 (0.00-0.03) X10*3/uL Absolute Neuts (auto) 2.8 (2.0-8.3) x10*3/uL Absolute Nucleated RBC 0.000 (0.0-0.012) X10*3/uL Nucleated RBC % (auto) 0.0 (0.0-0.2) /100WBC Sodium 140 (135-145) mmol/L Potassium 4.0 (3.3-5.1) mmol/L Chloride 107 (96-108) mmol/L Carbon Dioxide 25 (22-29) mmol/L Anion Gap 12 (12-20) BUN 16 (9-16) mg/dL Creatinine 0.94 (0.5-1.4) mg/dL Estim Creat Clear Calc 34.2 Estimated GFR 56 Random Glucose 97 (60-115) mg/dL Calcium 8.5 D (8.4-10.2) mg/dL Total Bilirubin 0.9 (0.0-1.0) mg/dL AST 27 (5-31) U/L ALT 19 (0-31) U/L Alkaline Phosphatase 51 (39-117) U/L Troponin I High Sens < 2.7 (<3.5-17.0) ng/L Total Protein 6.6 (6.5-8.0) g/dL Albumin 4.2 (3.5-5.0) g/dL Urine Color Yellow Urine Appearance Clear Urine pH 7.5 (5.0-9.0) Ur Specific [place] <= 1.005 (1.005-1.025) Urine Protein Negative (Neg-Trace) mg/dL Urine Glucose (UA) Negative (Negative) mg/dL Urine Ketones Negative (Negative) mg/dL Urine Blood Negative (Negative) Urine Nitrite Negative (Negative) Ur Leukocyte Esterase Small (1+) H (Negative) Urine RBC 0-2 (0-2) /HPF Urine WBC 0-5 (0-5) /HPF Ur Squamous Epith Cells 0-2 (0-2) /HPF Urine Bacteria None Seen (None Seen) Hyaline Casts 0-2 (0-2) /LPF Independent Interpretation I performed an independent interpretation of an: EKG, Plain X-Ray and CT Scan Interpretation: EKG showing normal sinus rhythm, rate of 86 beats per minute, QT 374, QTC 447, no acute ischemic changes or ST elevations Chest x-ray without infiltrate or consolidation CT head without bleed or mass Radiology Impression Discussion of test interpretation with radiology: I have reviewed the radiologist's reading. Radiologist Impression: Date of Service: 09/14/24 Procedure(s): ECG 12 lead EKG Accession Number(s): [id number] cc: Redd Wang MD~ Test Reason : DIZZINESS Blood Pressure : */* mmHG Vent. Rate : 86 BPM Atrial Rate : 86 BPM P-R Int : 150 ms QRS Dur : 82 ms QT Int : 374 ms P-R-T Axes : 64 -9 55 degrees QTcB Int : 447 ms Normal sinus rhythm Normal ECG When compared with ECG of 08-Jul-2021 06:23, No significant change was found Referred By: Generic ED Physician Date of Service: 09/14/24 Procedure(s): XR chest 2V Accession Number(s): [id number] cc: Physician,Unknown ; Ena Mayberry~ EXAMINATION: XR CHEST 2 VIEWS HISTORY: weakness COMPARISON: Comparison is made with the prior examination dated 10/29/2023. FINDINGS: PA and lateral views of the chest are submitted. The lungs are hyperinflated, consistent with COPD. The lungs are clear. There is right-sided pleural thickening. There is no pleural effusion, pneumothorax, or pulmonary vascular congestion. The heart is normal in size. The aorta is tortuous. Again seen are multiple thoracic compression fractures. The patient is status post multilevel lower thoracic kyphoplasty. XR/XR chest 2V IMPRESSION: COPD. No acute cardiopulmonary abnormality. Electronically signed by: Zurdo Patton MD 09/14/2024 12:44 PM EDT RP Date of Service: 09/14/24 Procedure(s): CT head/brain wo IV con Accession Number(s): [id number] cc: Physician,Unknown ; Ena Mayberry~ Report Number: [id number]: Total DLP = 652.00 mGy-cm EXAMINATION: CT HEAD WITHOUT CONTRAST CLINICAL INFORMATION: dizziness x2 weeks COMPARISON: May 24, 2021. TECHNIQUE: Contiguous axial imaging was performed from the skull base to vertex without intravenous administration of contrast. This CT examination was performed using dose optimization techniques as appropriate, variously including the following: *Automated exposure control *Adjustment of mA and/or kV according to patient size (this includes techniques or standardized protocols for targeted exams where dose is matched to indication/reason for exam; i.e. extremities or head) *Use of iterative reconstruction technique DLP: 652 mGy-cm FINDINGS: No acute intracranial hemorrhage, mass effect, midline shift, hydrocephalus or herniation. Sellar/suprasellar region demonstrated no gross masses. Normal position of the cerebellar tonsils. Bilateral multifocal patchy and confluent deep periventricular white matter hypodensities involving centrum semiovale and ham radiata. Koenig-white matter differentiation is normal. Calcified plaques in the cavernous supraclinoid segments both ICAs. There is a focal, 3 mm hyperdensity/calcification in the medial aspect of the left eyeball. No air-fluid levels in the paranasal sinuses. There is a poor pneumatization of the paranasal sinuses. Focal calcification in the inferior left eyeball. Tympanic cavities and mastoid cells are aerated. CT/CT head/brain wo IV con IMPRESSION: No acute intracranial hemorrhage. Global atrophy. Small vessel occlusive disease. Electronically signed by: You Lipscomb MD 09/14/2024 01:42 PM EDT Independent Historian Clinical information obtained from an independent historian. History obtained from or confirmed by: Friend External Record Review External record reviewed: Inpatient record Social Determinants Patient?s care significantly limited by Social Determinants of Health including: Other Social Determinant of Health Critical Care Time Critical Care Time Critical Care Time: No Discharge Plan Discharge Clinical Impression: Generalized weakness Patient Disposition: Home, Self-Care Instructions: Weakness (ED) Additional Instructions: Your work up today is reassuring. Your blood work did not show anemia. There are no acute electrolyte abnormalities. Your urine does not show infection. Your chest xray does not show pneumonia. The CT scan of your head is normal. We discussed physical therapy evaluation today however you are declining at this time. Please follow up with your outpatient providers. Make sure you are staying hydrated. You may return with any new or worsening symptoms. In the case of an emergency call 911. Prescriptions: No Action amlodipine 5 mg tablet 5 mg PO DAILY Qty: 90 3RF atorvastatin 10 mg tablet 10 mg PO DAILY Qty: 90 3RF Centrum Silver Tablet 1 tab PO DAILY cholecalciferol (vitamin D3) 25 mcg (1,000 unit) Tablet 25 mcg PO DAILY Metamucil (sugar) Powder 1 tbsp PO DAILY prednisone 10 mg tablet 10 mg PO DAILY Qty: 5 0RF triamcinolone acetonide 0.1 % cream 1 appl topical DAILY Qty: 80 0RF Referrals: Physician,Unknown J [Primary Care Provider, Medical] Interventions: ED Discharge Assessment Last Done: 09/14/24 14:55 Discharge Date/Time: 09/14/24 14:56 Print Language: Liberian
--- OUTSIDE RECORDS SUMMARY | 2024-09-14 11:39 | XMS_ITS | Encounter Summary ---
Author Organization [facility] Address [address] [place] [address] [place] [id number] Phone Care Team Providers Care Registered Nurse Supervisor Name Role Phone Milady Miranda MD Primary Care Provider [phone] Encounter Details Date Type Department Care Team (Late Contact Info) Description 12/27/2023 Ancillary Orders [address] [id number] System, Provider Not In, [facility] [address] [id number] Social History Tobacco Use Types Packs/Day Years Used Date Smoking Tobacco: Never Smokeless Tobacco: Never Alcohol Use Standard Drinks/Week Comments No 0 (1 standard drink = 0.6 oz pur e alcohol) Education Answer Date Recorded Are you interested in more education? Not on caryl e 06/05/2022 Are you concerned about learning? Not on file 06/05/2022 No 06/05/2022 No 06/05/2022 Digital Access Answer Date Recorded No 07/04/2022 No 07/04/2022 Reliable internet access at home? Not on file 07/04/2022 Device with a working camera? Not on file Comments Unknown Sex and Gender Information Value Date Recorded Sex Assigned at Not on file Legal Sex Female 10:39 PM EDT Gender Identity Not on file Sexual Orientation Not on file documented as of this encounter Plan of Treatment Upcoming Encounters Date Type Department Care Team (Late Contact Info) Description 12/28/2024 10:00 AM EST Office Visit [facility] [address] [place] [address] [place] [address] Eloisa Jolly MD [address] [place] [id number] [email or web address] documented as of this encounter Results * DXA Outside (No Interpretation) (12/05/2021 12:00 AM EDT) Narrative Record, 12/27/2023 11:52 AM EST This study is for PACS storage only and not for interpretation. Procedure Note Record, 12/27/2023 This study is for PACS storage only and not for interpretation. us Provider Not In System PhD [facility] OUTSIDE IMAGING W /OUT INTERPRETATION Final Result documented in this encounter Visit Diagnoses Not on filedocumented in this encounter Care Teams Registered Nurse Supervisor Relationship Specialty Start Date End Date Milady Miranda MD [facility] [place] [address] PCP - General Internal Medicine 06/15/22 documented as of this encounter Additional Source Comments The information contained in this document represents components of the legal health record. It is not the complete legal health record.[facility]
--- OUTSIDE RECORDS SUMMARY | 2024-09-14 11:39 | XMS_ITS | Clinical Summary ---
Author Organization [facility] Address [address] [place] [address] Care Team Providers Care Green Lumber Grader Name Role Phone Milady Miranda MD Primary Care Provider [phone] Medications Medication Sig Dispensed Refills Start Date [...] 81 03/17/2022 1:58 PM EST Temperature 36.6 C (97.9 F) 03/17/2022 1:58 PM EST Respiratory Rate 20 01/14/2022 12:58 PM EST [...] 1-dose 75+ series) 01/18/2011 Influenza Vaccine (#1) 2024 Hepatitis B Vaccines Aged Out No long er eligible based on patient's age to complete this topic RSV Ped < 20 months Aged Out No longe r eligible based on patient's age to complete this topic Care Teams Green Lumber Grader Relationship Specialty Start Date End Date Milady Miranda MD [address] [facility] [place] [address] PCP - General Forest Fire Equipment Operator 01/06/22
--- OUTSIDE RECORDS SUMMARY | 2024-09-14 11:39 | XMS_ITS | Patient Health Record ---
Author Organization [facility] Address [address] [place] [address] Care Team Providers Care Caretaker Name Role Phone Ashely DIOP, Fred Primary Care Provider Zurdo Vallejo Unavailable [phone] Сергей DIOP, Harris Unavailable Unavailable Allergies Allergen (clinical drug ingredient) Drug/Non Drug Allergy documented on EMR Reaction Allergy Type Onset Date Status diclofenac / misoprostol Arthrotec Unknown Drug Allergy Active tramadol Tramadol HCl Unknown Drug Allergy Acti ve Sertraline HCl Unknown Drug Allergy Ac tive Reason For Referral No Information Medications Medication SIG (Take, Route, Frequency, Duration) Notes Start Date End Date Status Aleve Active Calcium + D 600-200 MG-UNIT 1 tablet wit h food Orally Once a day 09/26/2013 Active Centrum Silver Orally 09/26/2013 Acti ve Antibiotic x 10 days for a cold Active Citalopram Hydrobromide Active Lipitor 10 MG 1 tablet Orally Once a day 09/26/2013 Active Problems Problem Type SNOMED Code ICD Code Onset Dates Problem Status W/U Status Risk Notes Problem Esophageal reflux (317918900) Esophageal reflux (530.81) Active confirmed Problem Cough (66868405) Cough (786.2) Active confirmed Plan Of Treatment No Information Insurance Providers Payer Name Payer Address Payer Phone Subscriber Number Group Number Insured Name Patient Relationship to Insured Coverage Start Date Coverage End Date MEDICARE OF [place] [address] [place] [address] [id number] MARU DE LEON Self - patient is the insured [employer] CLAIMS [address] [place] [address] [id number] MARU DE LEON Self - patient is the insured Medical (General) History Medical History History ICD Code Screening [place] copy with only a hyperplastic polyp, internal hemorrhoids, diverticulosis Hyperlipidemia Depression/anxiety EGD in 2004 with only gastritis-neg. H.p ylori Back problems due to disc problems Denies IN,DM,CVA,Lung disease,renal dise ase Surgical History Surgery Date(Month/Year) Thyroidectomy
[2024-09-14 12:18] LABS: Troponin-I High Sensitivity < 2.7 ng/L (<3.5-17.0)
[2024-09-14 14:55] VITALS: BP 198/93; PULSE 90; RESP 18; TEMP -17.7; TEMP 0; O2SAT 97
== END 2024-09-14 14:56 | disposition home or self-care (01) ==
PROVIDERS: Physician Assistant Medical; Emergency Provider Emergency Medicine
DX: R53.1 Weakness (principal); I10 Essential (primary) hypertension; R42 Dizziness and giddiness; M81.0 Age-related osteoporosis without current pathological fracture; Z79.899 Other long term (current) drug therapy
CPT/HCPCS: 36415; 70450; 71046; 80053; 81001; 84484; 85025; 87086; 93005; 99284

== ENCOUNTER → 2024-09-14 10:05 | Outpatient (BNV) | payer MEDICARE, SELFPAY | PROVIDERS: Emergency Provider Emergency Medicine; Visit Provider Internal Medicine | DX: R42 Dizziness and giddiness (principal) | CPT/HCPCS: 93010 ==

== ENCOUNTER → 2024-09-14 11:51 | Outpatient (BNV) | payer MEDICARE, SELFPAY | PROVIDERS: Emergency Provider Emergency Medicine; Visit Provider Radiology Diagnostic Radiology | DX: J44.9 Chronic obstructive pulmonary disease, unspecified (principal) | CPT/HCPCS: 71046 ==

== ENCOUNTER 2024-10-03 08:28 | Outpatient (AMB) | payer MEDICARE, SELFPAY ==
--- NOTE | 2024-10-03 08:34 | MHC.PC.OV ---
Vital Signs 10/03/24 08:37 Weight 125 lb BP 142/76 H Blood Pressure Location Rt brachial Position Sitting Respiration 16 Pulse 69 Pulse Oximetry (%) 98 Oxygen Delivery Method Room Air Intake Visit Reasons: ER followup weakness Investigator Utility Bill Complaints Required: No Accompanied by: Daughter Allergies diclofenac (From ARTHROTEC) Allergy (Severe, Verified 10/03/24 08:39) ANXIETY/WEAKNESS/CONFUSION misoprostol (From ARTHROTEC) Allergy (Severe, Verified 10/03/24 08:39) ANXIETY/WEAKNESS/CONFUSION sertraline (SERTRALINE) Allergy (Severe, Verified 10/03/24 08:39) ANXIETY/WEAKNESS/CONFUSION, dizziness tramadol (TRAMADOL) Allergy (Severe, Verified 10/03/24 08:39) ANXIETY/CONFUSION/WEAKNESS prednisone Adverse Reaction (Unknown, Verified 10/03/24 08:39) psychosis Medication List - Last Reconciled 10/03/24 by Milady Miranda MD amlodipine 5 mg PO DAILY atorvastatin 10 mg PO DAILY cholecalciferol (vitamin D3) 25 mcg PO DAILY exckgyzddgyy-rztfuoek-nghmvf 1 tab PO DAILY psyllium seed (sugar) (Metamucil (sugar) oral powder) 1 tbsp PO DAILY triamcinolone acetonide 0.1% 1 appl topical DAILY Tobacco use date assessed: 10/03/24 Fall risk assessment: No Falls in past year Last assessed Fall Risk: 10/03/24 Dental Screening Dental Screen Date: 10/03/24 Did you have a dental visit in the last 12 months?: Yes Did you have a dental problem in the last 6 months where you did not have access to dental care?: No Was dental information given to patient?: Patient has dentist HPI ER followup weakness HPI Details Patient presents for the follow-up of ER visit for general weakness and not feeling well. Cardiac and neuro workup including brain CT were negative. Patient was found to be dehydrated was giving IV fluids. Patient presents for the visit with her daughter who lives in [place]. She arrived after patient's visit to the ER and has been concerned about patient living alone not being able to take care of the house and her personal needs. She has been getting meals on wheels and her daughter contacted [facility] to arrange for home health aide and [employer] services. Patient used to take citalopram 5 mg but per her daughter's suggestion she stopped taking it 6 months ago. Patient reports feeling more tired having less energy with loss of appetite weight loss increasing anxiety insomnia for the last 2 months. Patient has been taking amlodipine and atorvastatin most of the time but reports occasionally forgetting to take her medications [facility] Medical History Compression deformity of vertebra Acute right hip pain Status post fall Vitamin D deficiency HTN (hypertension) DJD (degenerative joint disease), lumbar Compression fracture Age related osteoporosis GERD (gastroesophageal reflux disease) Depression Hyperlipemia Surgical History H/O kyphoplasty History of thyroid surgery History of total hip replacement Family History Father CVD (cardiovascular disease) Heart disease Mother CVD (cardiovascular disease) Heart disease Maternal Grandfather No problems noted. Maternal Grandmother No problems noted. Paternal Grandfather No problems noted. Paternal Grandmother No problems noted. Brother No problems noted. Daughter No problems noted. Son No problems noted. Social History Housing: House Alcohol intake: never Patient Tobacco Use Status: Never used Tobacco e-Cigarette/Vaping Use: Never Used Advance Directives Date on File: 07/08/21 service: No Current occupational status: retired Sexual orientation: Straight/Heterosexual Gender identity: Female Cognitive needs: No Hearing needs: No Vision needs: No Questionnaire Thrive Questionnaire Date Thrive assessed: 10/29/23 I am a: Patient What is your living situation today?: I have a steady place to live Within the past 12 months, did the food you bought not last and you didn't have the money to get more?: I choose not to answer this question Within the past 12 months, did you worry whether your food would run out before you got money to buy more?: I choose not to answer this question Do you have trouble paying for medicines?: No Do you have trouble getting transportation to medical appointments?: No Do you have trouble paying your heating and electricity bill?: No Do you have trouble taking care of your child, family member or friend?: No Do you have trouble with day-to-day activities such as bathing, preparing meals, shopping, managing finances, etc.?: No Are you interested in more education?: No Please select the resources that you would like help with: None Currently or been in a relationship where the following occur: I choose not to answer THRIVE Score: 0 QUINTIN-7 AMB Questionnaire QUINTIN-7 Date QUINTIN - 7 assessed: 04/07/24 Source: Developed by Drs. Zurdo Mendiola, Liana Calderón, Juancarlos Osman and colleagues, with an educational leonardo from [employer]. Review of Systems Const All systems reviewed & are unremarkable except as noted in HPI and below Eyes Reports no additional complaints ENT Reports no additional complaints Card Reports no additional complaints Resp Reports no additional complaints GI Reports no additional complaints Reports no additional complaints Physical exam (Primary Care) Vital Signs: Last Vital Signs Pulse 69 10/03/24 08:37 Resp 16 10/03/24 08:37 BP 142/76 H 10/03/24 08:37 Pulse Ox 98 10/03/24 08:37 Oxygen Delivery Method Room Air 10/03/24 08:37 Tobacco/Smoking Status: Tobacco use Status Tobacco use date assessed 10/03/24 10/03/24 08:46 Patient Tobacco Use Status Never used Tobacco 10/03/24 08:35 e-Cigarette/Vaping Use Never Used 10/03/24 08:35 Thrive Assessment: Date of Thrive Assessment Date Thrive assessed 10/29/23 10/03/24 08:35 Currently or been in a relationship where the following occur: I choose not to answer Const General: no acute distress Orientation/consciousness: patient oriented x3 HENMT Head: Yes normal to inspection Face and sinus: Yes normal facial exam Neck Neck: Yes supple Resp Effort & Inspection: normal respiratory effort Auscultation: clear to auscultation bilaterally Cardio Rhythm: regular rhythm Heart sounds: S1 normal heart sound present and S2 normal heart sound present GI Inspection: Yes normal to inspection Palpation (GI): Soft to palpation Percussion: Yes normal to percussion Auscultation: normal bowel sounds Neuro Other: Lower extremities strength 4/5 bilaterally General: patient oriented x3 Cranial nerves: Yes CN's II-XII intact bilaterally Gait exam (Neuro): Staggering gait present Motor exam (neuro): Pronator motor function not present Coding Level of Care Code Est Pt Level 4 (11240) Diagnoses Status post fall Z91.81 HTN (hypertension) I10 Hyperlipemia E78.5 Anxiety and depression F41.9; F32.A Assessment & Plan Assessment & Plan (1) Status post fall: Code(s): Z91.81 - History of falling Category: Medical Plan: Referred to home physical therapy for poor balance bilateral lower extremity weakness (2) HTN (hypertension): Code(s): I10 - Essential (primary) hypertension Category: Medical Plan: Continue amlodipine medication compliance discussed with the pt (3) Hyperlipemia: Code(s): E78.5 - Hyperlipidemia, unspecified Category: Medical Plan: Continue statin (4) Anxiety and depression: Code(s): F41.9 - Anxiety disorder, unspecified; F32.A - Depression, unspecified Category: Medical Plan: Treatment options options including trying a low dose of mirtazapine discussed with the patient. Her daughter is not in favor of the patient trying medication. Counseling was recommended but patient declined. She will follow-up in 1 month
[2024-10-03 08:37] VITALS: BP 142/76; PULSE 69; RESP 16; O2SAT 98
--- OUTSIDE RECORDS SUMMARY | 2024-10-03 08:39 | XMS_ITS | Encounter Summary ---
Author Organization [facility] Address [address] [place] [address] [place] [address] Phone Care Team Providers Care Lettuce Trimmer Name Role Phone Milady Miranda MD Primary Care Provider [phone] Encounter Details Date Type Department Care Team (Late Contact Info) Description 12/27/2023 Ancillary Orders [address] [id number] System, Provider Not In, PhD Partners [address] [address] Social History Tobacco Use Types Packs/Day Years [...] 10:00 AM EST Office Visit [facility] [address] [place] [address] [place] [address] Eloisa Jolly MD [address] [place] [address] [email or web address] documented as of this encounter Results * DXA Outside (No Interpretation) (12/07/2023 12:00 AM EDT) Narrative Record, 12/27/2023 11:47 AM EST This study is for PACS storage only and not for interpretation. Procedure Note Record, 12/27/2023 This study is for PACS storage only and not for interpretation. us Provider Not In System PhD IMG OUTSIDE IMAGING W /OUT INTERPRETATION Final Result documented in this encounter Visit Diagnoses Not on filedocumented in this encounter Care Teams Lettuce Trimmer Relationship Specialty Start Date End Date Milady Miranda MD [facility] [place] [address] PCP - General Internal Medicine 06/15/22 documented as of this encounter Additional Source Comments The information contained in this document represents components of the legal health record. It is not the complete legal health record.[facility]
--- OUTSIDE RECORDS SUMMARY | 2024-10-03 08:39 | XMS_ITS | Patient Health Record ---
Author Organization [facility] Address [address] [place] [address] Care Team Providers Care Nursing Aide Name Role Phone Ashely DIOP, Fred Primary Care Provider Zurdo Vallejo Unavailable [phone] Сергей DIOP, Harris Unavailable Unavailable Allergies Allergen [...] W/U Status Risk Notes Problem Esophageal reflux (530.81) Active confirmed Problem Cough (83215000) Cough (786.2) Active confirmed Plan Of Treatment No Information Insurance Providers Payer Name Payer Address Payer Phone Subscriber Number Group Number Insured Name Patient Relationship to Insured Coverage Start Date Coverage End Date MEDICARE OF [place] [address] [place] [address] [id number] MARU DE LEON Self - patient is the insured MED[employer] ATTN CLAIMS [address] [place] [address] [id number] MARU DE LEON Self - patient is the insured Medical (General) History Medical History History ICD Code Screening Colonos copy with only a hyperplastic polyp, internal hemorrhoids, diverticulosis Hyperlipidemia Depression/anxiety EGD in 2004 with only gastritis-neg. H.p ylori Back problems due to disc problems Denies AK,DM,CVA,Lung disease,renal dise ase Surgical History Surgery Date(Month/Year) Thyroidectomy
--- OUTSIDE RECORDS SUMMARY | 2024-10-03 08:39 | XMS_ITS | Encounter Summary ---
Author Organization [facility] Address [address] [place] [address] [place] [address] Phone Care Team Providers Care Chef Concierge Name Role Phone Milady Miranda MD Primary Care Provider [phone] Encounter Details Date Type Department Care Team (Late Contact Info) Description 12/27/2023 Ancillary Orders [address] [id number] System, Provider Not In, PhD Partners [address] [address] Social History Tobacco Use Types Packs/Day Years [...] 10:00 AM EST Office Visit [facility] [address] [place] [address] [place] [address] Eloisa Jolly MD [address] [place] [address] [email or web address] documented as of this encounter Results * [...] on filedocumented in this encounter Care Teams Chef Concierge Relationship Specialty Start Date End Date Milady Miranda MD [facility] [place] [address] PCP - General Internal Medicine 06/15/22 documented as of this encounter Additional Source Comments The information contained in this document represents components of the legal health record. It is not the complete legal health record.[facility]
--- OUTSIDE RECORDS SUMMARY | 2024-10-03 08:39 | XMS_ITS | Encounter Summary ---
Author Organization [facility] Address [address] [place] [address] [place] [address] Phone Care Team Providers Care Rail Walker Name Role Phone Milady Miranda MD Primary Care Provider [phone] Encounter Details Date Type Department Care Team (Late Contact Info) Description 12/27/2023 Ancillary Orders [address] [phone] System, Provider Not In, PhD Partners [address] [address] Social History Tobacco Use Types Packs/Day Years [...] 10:00 AM EST Office Visit [facility] [address] [place] [address] [place] [address] Eloisa Jolly MD [address] [place] [phone] [email or web address] documented as of this encounter Results * DXA Outside (No Interpretation) (08/07/2019 12:00 AM EDT) Narrative Record, 12/27/2023 11:55 AM EST This study is for PACS storage only and not for interpretation. Procedure Note Record, 12/27/2023 This study is for PACS storage only and not for interpretation. us Provider Not In System PhD IMG OUTSIDE IMAGING W /OUT INTERPRETATION Final Result documented in this encounter Visit Diagnoses Not on filedocumented in this encounter Care Teams Rail Walker Relationship Specialty Start Date End Date Milady Miranda MD [facility] [place] [address] PCP - General Internal Medicine 06/15/22 documented as of this encounter Additional Source Comments The information contained in this document represents components of the legal health record. It is not the complete legal health record.[facility]
--- OUTSIDE RECORDS SUMMARY | 2024-10-03 08:40 | XMS_ITS | Clinical Summary ---
Author Organization [facility] Address [address] [place] [address] Care Team Providers Care Senior Marketing Engineer Name Role Phone Milady Miranda MD Primary Care Provider [phone] Medications Medication Sig Dispensed Refills Start Date [...] age to complete this topic Care Teams Senior Marketing Engineer Relationship Specialty Start Date End Date Milady Miranda MD [address] [facility] [place] [address] PCP - General Forester Aide 01/06/22
--- OUTSIDE RECORDS SUMMARY | 2024-10-03 08:40 | XMS_ITS | Clinical Summary ---
Author Organization [facility] Address [address] [address] Phone Care Team Providers Care Wage And Salary Administrator Name Role Phone Milady Miranda MD Primary Care Provider [phone] Allergies Active Allergy Reactions Criticality Noted Date Comments Fluoxetine Unknown 06/26/2016 Sertraline Hcl Dizziness 06/26/2016 Tramadol Hcl Unknown 06/26/2016 Medications atorvastatin (LIPITOR) 10 MG tablet Take 10 mg by mouth daily. Active FOLIC ACID/MULTIVIT-WV N/LUTEIN (CENTRUM SILVER ORAL) Take 1 tablet by mouth daily. Active acetaminophen (TYLENOL) 325 mg tablet Take 1 tablet by mouth as needed. Active amLODIPine (NORVASC) 5 MG tablet Take 5 mg by mouth daily. 06/13/2022 Active psyllium (METAMUCIL) 3.4 gram packet Take 1 packet by mouth. Active calcium carbonate-vitami n D3 1,500 mg (600 mg elemental)-200 units Tab Take 1 tablet by mouth daily. Active Active Problems Problem Noted Date Diagnosed Date Age-related osteoporosis wit hout current pathological fracture 06/15/2022 Assessment & Plan (12/24/2023 2:44 PM EST): 88 y.o. woman with hx vertebral compression fractures. Clinically stable. No recent falls or fractures. S/p zoledronic acid infusion x 3 w/o issues, last early 2022. Limited activity, walks with cane. Careful to avoid falls. Getting good intake of calcium via diet and supplement. Seeing dentist regularly. Bone density is in the osteopenic range, with relative stability in total hip/spine, insignificant decline in femoral neck. Will check labs today. Will call again for records from [facility]. Will obtain/review actual images of bone density & compare to previous. Will determine whether to continue to monitor vs consider resuming rx. Assessment & Plan (06/15/2022 11:25 AM EDT): Clinically stable. No recent falls or fractures. S/p zoledronic acid infusion x 3 w/o issues. Limited activity. Careful to avoid falls. Getting good intake of calcium via diet and supplement. Had bone density in the Fall, does not recall hearing @ results. Will obtain records from [facility] & report of bone density from [facility]. Tentative plan will be to continue to observe w/o further pharmacologic rx, pending review of records/bone density. Spinal stenosis of lumbar region 07/15/2021 Essential hypertension 07/09/2021 On statin therapy 04/05/2017 Current use of aspirin 04/05/2017 Hyperlipidemia 01/13/2017 Right hip pain 01/13/2017 Primary osteoarthritis involving multiple joints 01/13/2017 shelter current use of non -steroidal anti-inflammatories (NSAID) 01/13/2017 Social History Tobacco Use Types Packs/Day Years [...] on file Sexual Orientation Not on file Last Filed Vital Signs Vital Sign Reading Time Taken Comments Blood Pressure 136/78 12/24/2023 8:23 AM EST Pulse 101 12/24/2023 8:23 AM EST Temperature - - Respiratory Rate - - Oxygen Saturation 98% 12/24/2023 8:23 AM EST Inhaled Oxygen Concentration - - Weight 59.2 kg (130 lb 9.6 oz) 12/24/2023 8:23 A M EST Height 154.9 cm (5' 1 ) 12/24/2023 8:23 AM EST Body Mass Index 24.68 12/24/2023 8:23 AM EST Plan of Treatment Upcoming Encounters Date Type Department Care Team (Late st Contact Info) Description 12/28/2024 10:00 AM EST Office Visit [facility] [address] [place] [address] [place] [address] Eloisa Jolly MD [address] [place] [phone] [email or web address] Health Maintenance Due Date Last Done Comments Adult Td,Tdap Booster 1936 DEPRESSION SCREENING 1948 RSV VACCINE (1 - 1-dose 75+ series) 01/18/2011 ZOSTER VACCINES (2 of 3) 11/06/2014 09/11/2014 PNEUMOCOCCAL VACCINES (50+ years) (2 of 2 - PPSV23) 10/10/2020 10/11/2019 COVID-19 VACCINE (3 - 2023-2 5 season) 2023 04/05/2020, 03/15/2020 OSTEOPOROSIS SCREENING INITI AL (ONE-TIME) Completed 12/07/2023 HEPATITIS A VACCINES Aged Out No long er eligible based on patient's age to complete this topic HIB VACCINES Aged Out No longer eligi ble based on patient's age to complete this topic MENINGOCOCCAL VACCINES (ACWY) Aged Out No longer eligible based on patient's age to complete this topic MENINGOCOCCAL VACCINES (B) Aged Out N o longer eligible based on patient's age to complete this topic Medical Devices Not on file Procedures Procedure Name Priority Date/Time Associated Diagnosis Comments HM DEXA SCAN Routine 12/07/2023 10:10 AM EDT from Last 3 Months or Most Recently Relevant to Health Maintenance Results * HM DEXA SCAN (12/07/2023 10:10 AM EDT) Historical Provider HEALTH MAINTENANCE Final Result from Last 3 Months or Most Recently Relevant to Health Maintenance Insurance MEDICARE PART A & B Member Subscriber Plan / Payer ( fective 2001-Present) Name:Sabrina Valdez Member ID:[id number] Relation to Subscriber:Self Name:Sabrina Valdez Subscriber ID:[id number] Payer ID:[id number] Group ID:Not on file Type:Medicare Address: [employer] [address] [place] [address] [employer] SUPPLEMENT MEDICARE PART A & B Member Subscriber Plan / Payer ( fective 2001-Present) Name:Sabrina Valdez Member ID:[id number] Relation to Subscriber:Self Name:Sabrina Valdez Subscriber ID:[id number] Payer ID:[id number] Group ID:Not on file Type:Medicare Address: [employer] [address] [place] [address] [employer] MEDEX SUPPLEMENT MEDICARE PART A & B [facility] MEDEX SUPPLEMENT MEDICARE PART A & B [employer] SUPPLEMENT [employer] MED[employer] SUPPLEMENT MEDICARE PART A & B [facility] [employer] MEDEX SUPPLEMENT MEDICARE PART A & B [employer] SUPPLEMENT MEDICARE PART A & B Member Subscriber Plan / Payer ( fective 2001-Present) Name:Sabrina Valdez Member ID:[id number] Relation to Subscriber:Self Name:Sabrina Valdez Subscriber ID:[id number] Payer ID:[id number] Group ID:Not on file Type:Medicare Address: [employer] [address] [place] [address] [employer] SUPPLEMENT MEDICARE PART A & B Member Subscriber Plan / Payer ( fective 2001-Present) Name:Sabrina Valdez Member ID:[id number] Relation to Subscriber:Self Name:Sabrina Valdez Subscriber ID:[id number] Payer ID:[id number] Group ID:Not on file Type:Medicare Address: [employer] [address] [place] [address] [employer] SUPPLEMENT Care Teams Wage And Salary Administrator Relationship Specialty Start Date End Date Milady Miranda MD [address] [place] [address] PCP - General Internal Medicine 06/15/22 Additional Source Comments The information contained in this document represents components of the legal health record. It is not the complete legal health record.[facility]
== END 2024-10-03 11:53 | disposition home or self-care (01) ==
LOC: HO.HMCC 08:28
PROVIDERS: Visit Provider Internal Medicine
DX: Z91.81 History of falling (principal); I10 Essential (primary) hypertension; E78.5 Hyperlipidemia, unspecified; F41.9 Anxiety disorder, unspecified; F32.A Depression, unspecified

== ENCOUNTER → 2024-10-03 08:28 | Outpatient (BNVA) | payer MEDICARE, SELFPAY | PROVIDERS: Visit Provider Internal Medicine | DX: I10 Essential (primary) hypertension (principal); E78.5 Hyperlipidemia, unspecified; F41.9 Anxiety disorder, unspecified; F32.A Depression, unspecified; Z91.81 History of falling | CPT/HCPCS: 99212 ==

== ENCOUNTER 2025-02-02 18:09 | Emergency (ER) | payer MEDICARE, SELFPAY ==
--- NOTE | ~2025-02-02 | XR_ITS ---
CLINICAL HISTORY: cp 2 view chest x-ray Comparison: Chest x-ray from 09/14/2024. Findings: Small pleural effusions versus pleural thickening are redemonstrated without significant change. Mild bibasilar atelectasis. No lobar consolidation. Mild emphysematous changes are redemonstrated. No pneumothorax. Cardiomegaly redemonstrated without significant change of the imaged mediastinum. No significant change in multilevel imaged compression fractures of the spine with likely 3 treated levels of the thoracolumbar junction. Mild rib deformities appear old/chronic. Degenerative changes include imaged shoulders, AC joints, and spine. IMPRESSION: 1. Mild bibasilar atelectasis. 2. No significant change compared to 09/14/2024 This document has been electronically signed by: Onur Red MD on 02/02/2025 19:49:33
--- NOTE | 2025-02-02 18:15 | ECG_ITS ---
Test Reason : cp Blood Pressure : */* mmHG Vent. Rate : 94 BPM Atrial Rate : 94 BPM P-R Int : 166 ms QRS Dur : 80 ms QT Int : 370 ms P-R-T Axes : 63 -12 38 degrees QTcB Int : 462 ms Normal sinus rhythm Possible Anterior infarct , age undetermined Abnormal ECG When compared with ECG of 14-Sep-2024 10:07, No significant change was found Referred By: Giovanna Clemente Electronically Signed By: SARATH JORDAN MD
[2025-02-02 18:35] VITALS: BP 197/94; PULSE 94; RESP 20; TEMP 36.3; O2SAT 99; BMI 20.6
--- NOTE | 2025-02-02 18:36 | ED.CHESTPAIN ---
HPI - Chest Pain General Chief Complaint: Chest Pain Stated Complaint: chest pain, difficulty breathing Time Seen by Provider: 02/02/25 23:09 Source: patient and family Mode of arrival: ambulatory Limitations: language barrier History of Present Illness ED Provider: Dr. Amna Arambula HPI narrative: 89 year old female with history of HTN, DJD presents to the Emergency Department for evaluation of sudden-onset severe chest pain that began at approximately 17:00 while she was seated and about to begin eating soup. She had taken only one spoonful when the pain started. Pain is described as sharp, rated 10?11/10 at peak, initially very intense and now ?less sore? but persistent. Location is mid-chest/epigastric area with radiation to the back of the right shoulder. Associated symptoms: brief nausea lasting 10?15 minutes without emesis, shortness of breath, mild cough producing light-colored phlegm, and mild congestion. Denies fever within the last 24 hours, hemoptysis, or prior abdominal surgery. No medications taken for pain prior to arrival. She recalls a similar but milder episode of chest pain a few months ago that resolved with rest and without medical evaluation. Past episode of ~10 lb unintentional weight loss during a prior ED visit; no etiology identified and no prior gallbladder imaging performed. Related Data Home Medications ?Medication ?Instructions ?Recorded ?Confirmed cholecalciferol (vitamin D3) 25 25 mcg PO DAILY 07/08/21 02/07/25 mcg (1,000 unit) tablet psyllium seed (sugar) oral powder 1 tbsp PO DAILY 12/29/23 02/07/25 (Metamucil (sugar) oral powder) [id number] tablet 1 tab PO DAILY 02/07/25 02/07/25 Previous Rx's ?Medication ?Instructions ?Recorded amlodipine 5 mg tablet 5 mg PO DAILY #90 tabs 03/13/24 triamcinolone acetonide 0.1 % 1 appl topical DAILY #80 grams 04/07/24 topical cream atorvastatin 10 mg tablet 10 mg PO DAILY #90 tabs 09/08/24 omeprazole 20 mg capsule,delayed 20 mg PO DAILY #30 caps 02/03/25 release ondansetron 4 mg disintegrating 4 mg PO Q8H PRN nausea and 02/03/25 tablet vomiting #10 tabs Allergies Allergy/AdvReac Type Severity Reaction Status Date / Time diclofenac (From ARTHROTEC) Allergy Severe ANXIETY/WEA Verified 02/07/25 11:21 KNESS/CONFU JOSHUA misoprostol (From ARTHROTEC) Allergy Severe ANXIETY/WEA Verified 02/07/25 11:21 KNESS/CONFU JOSHUA sertraline (SERTRALINE) Allergy Severe ANXIETY/WEAKNESS/CONFUSION, Verified 02/07/25 11:21 dizziness tramadol (TRAMADOL) Allergy Severe ANXIETY/CON Verified 02/07/25 11:21 FUSION/WEAK NESS prednisone AdvReac Unknown psychosis Verified 02/07/25 11:21 Review of Systems Review of Systems: as per HPI, full review of systems performed and negative but for the above mentioned pertinent positives and negatives. [facility] Past Medical History Medical History GERD (gastroesophageal reflux disease) Compression deformity of vertebra Acute right hip pain Status post fall Vitamin D deficiency HTN (hypertension) DJD (degenerative joint disease), lumbar Compression fracture Age related osteoporosis Depression Hyperlipemia Surgical History H/O kyphoplasty History of thyroid surgery History of total hip replacement Family History Family History Father CVD (cardiovascular disease) Heart disease Mother CVD (cardiovascular disease) Heart disease Maternal Grandfather No problems noted. Maternal Grandmother No problems noted. Paternal Grandfather No problems noted. Paternal Grandmother No problems noted. Brother No problems noted. Daughter No problems noted. Son No problems noted. Social History Social History Housing: House Alcohol intake: never Patient Tobacco Use Status: Never used Tobacco e-Cigarette/Vaping Use: Never Used Advance Directives Date on File: 07/08/21 service: No Current occupational status: retired Sexual orientation: Straight/Heterosexual Gender identity: Female Cognitive needs: No Hearing needs: No Vision needs: No Physical Exam Exam: Exam: GENERAL: Chronically ill-appearing, conversant, no acute distress. SKIN: Normal skin color for ethnicity, warm, dry, no rashes noted. HEENT: Normocephalic, atraumatic, no stridor, posterior oropharynx nonerythematous, EOMI. NECK: Soft, supple, full ROM, midline structures nontender, no step-offs, no deformities, no lymphadenopathy. CHEST: Heart regular rate and rhythm, no murmurs, symmetric chest rise and fall. PULMONARY: Clear to auscultation bilaterally, no labored breathing, no wheezes/rhales/ rhonchi. ABDOMINAL: Soft, nondistended, nontender, positive bowel sounds in all quadrants. : Deferred. MUSCULOSKELETAL: Normal tone, full range of motion, no deformities, no peripheral edema. NEURO: Alert and oriented to person, CN II through XII intact, no focal neurologic deficits. PSYCHIATRIC: Flat affect, fluid speech, appropriate demeanor. Vital Signs: Vital Signs: Last Vital Signs Temp 97.9 F 02/03/25 02:28 Pulse 80 02/03/25 02:28 Resp 12 02/03/25 02:28 BP 127/66 02/03/25 02:28 Pulse Ox 99 02/03/25 02:28 O2 Del Method Room Air 02/03/25 02:28 BMI result Body Mass Index 20.6 Course Course Course Narrative: This is a Rapid Medical Exam performed in triage by Giovanna Clemente PA-C. Full HPI, ROS and PE to be performed by primary ED provider. 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 Plan: EKG, labs, CXR, viral testing, rapid strep Medications Administered Discontinued Medications Generic Name Dose Route Start Last Admin Trade Name Freq PRN Reason Stop Dose Admin Acetaminophen 975 mg 02/03/25 01:46 02/03/25 02:11 Acetaminophen 325 Mg Tablet PO 02/03/25 01:47 975 mg ONCE ONE Administration Al Hydroxide/Mg Hydroxide 30 ml 02/03/25 00:06 02/03/25 00:20 Magnesium Hydrox/Alum Hydrox 30 Ml Oral.Susp PO 02/03/25 00:07 30 ml ONCE ONE Administration Lidocaine HCl 15 ml 02/03/25 00:06 02/03/25 00:20 Lidocaine Hcl Viscous 2 % 15 Ml Solution MUCOUS MEM 02/03/25 00:07 15 ml ONCE ONE Administration Omeprazole 20 mg 12/27/25 01:46 02/03/25 02:11 Omeprazole 20 Mg Capsule.Dr PO 02/03/25 01:47 20 mg ONCE ONE Administration Ondansetron HCl 4 mg 02/03/25 00:06 02/03/25 00:20 Ondansetron Odt 4 Mg Tab.Alex ADAMSU 02/03/25 00:07 4 mg ONCE ONE Administration Medical Decision Making Medical Decision Making [facility] Narrative: Patient presents today with a chief complaint of chest pain. Differential diagnosis includes, but is not limited to, acute coronary syndrome, musculoskeletal pain, pneumothorax, GERD, biliary colic, pleurisy, pulmonary embolism, dissection, among others. I will order EKG, chest x-ray, laboratory workup including cardiac enzymes to further evaluate for etiology. Problem #1: Epigastric/Chest Pain ? r/o Biliary Colic vs Gastritis/Ulcer Assessment: Severe, acute mid-chest/epigastric pain radiating to right shoulder; normal EKG and CXR; biliary labs normal. Pain pattern suggests possible gallbladder etiology; gastric pathology also considered. Plan: Gallbladder ultrasound ordered to evaluate for cholelithiasis/cholecystitis. Administer antiemetic for nausea (given in ED). Administer gastric mucosal protectant to coat stomach lining (given in ED). If ultrasound demonstrates gallstones with recurrent symptoms, patient may require elective cholecystectomy in the future; no emergent surgery indicated tonight. Problem #2: Mild Dehydration Assessment: Laboratory evidence and history of sub-optimal fluid intake. Plan: Encourage increased oral fluids: water and non-caffeinated tea preferred. Advise drinking a glass of water with each cup of coffee due to diuretic effect. Problem #3: Chronic Hypertension & Hyperlipidemia Assessment: Takes amlodipine and atorvastatin chronically; no acute issues today. Plan: Patient currently takes amlodipine and atorvastatin for hypertension and hyperlipidemia. Follow-up: Patient to follow up with primary care provider or return to ED for any worsening symptoms. Ultrasound results will be reviewed prior to disposition. Differential Diagnosis Differential Diagnoses: The differential diagnosis associated with the presentation includes (as above) Admission/Observation Consideration of admission/observation: Escalation of care including admission/observation considered Lab Data [facility] Lab Attestation statement: I reviewed the patient's lab results. 02/02/25 18:58 02/02/25 18:58 Labs: Lab Results 12/26/25 Range/Units 18:58 WBC 5.0 (4.8-10.8) X10*3/uL RBC 3.98 L (4.20-5.50) X10*6/uL Hgb 12.8 (12.0-16.0) g/dl Hct 37.0 (37.0-47.0) % MCV 93.0 (80.0-98.0) fL MCH 32.2 (27.0-33.0) pg MCHC 34.6 (31.0-35.0) g/dl RDW 13.2 (11.0-16.0) % Plt Count 213 (160-400) X10*3/uL MPV 9.7 (9.4-12.3) fL Immature Gran % (Auto) 0.2 (0.0-0.4) % Neut % (Auto) 49.5 (45-73) % Lymph % (Auto) 33.5 (20-40) % [place] % (Auto) 10.0 (2-11) % Eos % (Auto) 6.2 H (0-4) % Baso % (Auto) 0.6 (0-2) % Lymph # (Auto) 1.7 (1.2-4.9) X10*3/uL [place] # (Auto) 0.5 (0.1-1.2) X10*3/uL Eos # (Auto) 0.3 (0.0-0.4) X10*3/uL Baso # (Auto) 0.0 (0.0-0.2) X10*3/uL Abs Immat Gran (auto) 0.01 (0.00-0.03) X10*3/uL Absolute Neuts (auto) 2.5 (2.0-8.3) x10*3/uL Absolute Nucleated RBC 0.000 (0.0-0.012) X10*3/uL Nucleated RBC % (auto) 0.0 (0.0-0.2) /100WBC PT 11.5 (11.2-13.5) SEC INR 0.9 (0.9-1.1) Sodium 143 (135-145) mmol/L Potassium 3.7 (3.3-5.1) mmol/L Chloride 108 (96-108) mmol/L Carbon Dioxide 27 (22-29) mmol/L Anion Gap 12 (12-20) BUN 20 H (9-16) mg/dL Creatinine 0.89 (0.5-1.4) mg/dL Estim Creat Clear Calc 36.8 Estimated GFR 60 Random Glucose 109 (60-115) mg/dL Calcium 9.2 D (8.4-10.2) mg/dL Magnesium 2.1 (1.6-2.6) mg/dL Total Bilirubin 0.6 (0.0-1.0) mg/dL Direct Bilirubin 0.3 (0.0-0.5) mg/dL AST 28 (5-31) U/L ALT 22 (0-31) U/L Alkaline Phosphatase 70 (39-117) U/L Troponin I High Sens 3.4 (<3.5-17.0) ng/L Total Protein 7.1 (6.5-8.0) g/dL Albumin 4.6 (3.5-5.0) g/dL Influenza Type A (PCR) NEGATIVE (Negative) Influenza Type B (PCR) NEGATIVE (Negative) RSV RNA Qual (PCR) NEGATIVE (Negative) SARS-CoV-2 RNA (RT-PCR) NEGATIVE (Negative) S. pyogenes GrpA DOV Negative (Negative) Independent Interpretation I performed an independent interpretation of an: EKG and Plain X-Ray Interpretation: My independent interpretation of the chest x-ray reveals no consolidations, pulmonary edema, pleural effusion, pneumothorax, obvious bony abnormalities. Radiology Impression Discussion of test interpretation with radiology: I have reviewed the radiologist's reading. Independent Historian Clinical information obtained from an independent historian. History obtained from or confirmed by: Other (son) External Record Review External record reviewed: Inpatient record Prescription Management I considered prescription management with: Pain Medication Chronic Conditions Patient?s care impacted by: Hypertension Social Determinants Patient?s care significantly limited by Social Determinants of Health including: Other Social Determinant of Health Discharge Plan Discharge Clinical Impression: Atypical chest pain Patient Disposition: Home, Self-Care Instructions: Noncardiac Chest Pain (ED) Additional Instructions: DIAGNOSIS & TREATMENT: You were seen in the Emergency Department for your chest discomfort. We performed an EKG, laboratory work and chest xray which did not reveal any acute abnormalities that would explain your symptoms. You are most likely suffering from peptic ulcer disease or gastritis which is irritation of the lining of your stomach. It is best treated with antacid medications as well as eating regular, small meals. Stay well hydrated and continue to follow up with your primary care doctor as scheduled on Wednesday. FURTHER CARE: We have not found any emergent physical exam or lab abnormalities that would require admission to the hospital today. Many people who come to the ER with chest discomfort do not leave with a specific diagnosis at the end of their visit. In the Emergency Department we try to make sure that there is no emergent problem that needs admission to the hospital or antibiotics right now. This does not mean that your evaluation is complete--please be sure to follow up with your regular doctor as additional testing as an outpatient may be indicated, such as an ultrasound of your gallbladder to be sure this is not contributing to your chest and back pain. Please be certain to drink plenty of fluids over the next several days. WHEN YOU SHOULD BE SEEN NEXT: Please follow-up with your primary care provider within the next 2-3 days for reevaluation of your symptoms. WHEN TO RETURN TO THE ED: Monitor your symptoms closely and return to the emergency department immediately for any new/worsening symptoms including: Worsening chest pain, difficulty breathing, fevers greater than 100 degrees, passing out, any new symptom that concerns you. Call 911 with any medical emergency. Prescriptions: New omeprazole 20 mg capsule,delayed release(DR/EC) 20 mg PO DAILY Qty: 30 0RF ondansetron 4 mg tablet,disintegrating 4 mg PO Q8H PRN (Reason: nausea and vomiting) Qty: 10 0RF No Action amlodipine 5 mg tablet 5 mg PO DAILY Qty: 90 3RF atorvastatin 10 mg tablet 10 mg PO DAILY Qty: 90 3RF cholecalciferol (vitamin D3) 25 mcg (1,000 unit) Tablet 25 mcg PO DAILY Metamucil (sugar) Powder 1 tbsp PO DAILY triamcinolone acetonide 0.1 % cream 1 appl topical DAILY Qty: 80 0RF [id number] Tablet 1 tab PO DAILY Interventions: ED Discharge Assessment Last Done: 02/03/25 02:28 Discharge Date/Time: 02/03/25 02:30 Print Language: Syriac
[2025-02-02 19:06] LABS: MANUAL DIFF FLAG NO
[2025-02-02 19:13] LABS: Strep A Nucleic Acid Negative (Negative)
[2025-02-02 19:21] LABS: Hematocrit 37.0 % (37.0-47.0); Hemoglobin 12.8 g/dl (12.0-16.0); Imm Gran Abs Auto 0.01 X10*3/uL (0.00-0.03); Imm Gran Pct Auto 0.2 % (0.0-0.4); Lymphocytes Absolute Auto 1.7 X10*3/uL (1.2-4.9); Mean Corpuscular HGB Conc 34.6 g/dl (31.0-35.0); Mean Corpuscular Hemoglobin 32.2 pg (27.0-33.0); Mean Corpuscular Volume 93.0 fL (80.0-98.0); NRBC Abs Auto 0.000 X10*3/uL (0.0-0.012); NRBC Pct Auto 0.0 /100WBC (0.0-0.2); Platelet Count 213 X10*3/uL (160-400); Red Blood Count 3.98 X10*6/uL (4.20-5.50); White Blood Count 5.0 X10*3/uL (4.8-10.8)
[2025-02-02 19:29] LABS: Alanine Aminotransferase 22 U/L (0-31); Albumin Level 4.6 g/dL (3.5-5.0); Alkaline Phosphatase 70 U/L (39-117); Anion Gap 12 (12-20); Aspartate Amino Transferase 28 U/L (5-31); Blood Urea Nitrogen 20 mg/dL (9-16); Calcium 9.2 mg/dL (8.4-10.2); Carbon Dioxide 27 mmol/L (22-29); Chloride 108 mmol/L (96-108); Creatinine Clr Calc Pharmacy 36.8; Estimated Glomerular Filt Rate 60; INTERNATIONAL NORM RATIO 0.9 (0.9-1.1); Magnesium 2.1 mg/dL (1.6-2.6); Potassium 3.7 mmol/L (3.3-5.1); Prothrombin Time 11.5 SEC (11.2-13.5); Sodium 143 mmol/L (135-145); Total Protein 7.1 g/dL (6.5-8.0)
[2025-02-02 19:31] LABS: Troponin-I High Sensitivity 3.4 ng/L (<3.5-17.0)
[2025-02-02 20:01] LABS: Resp Syncy Virus RNA Qual PCR NEGATIVE (Negative); SARS COV2 PCR INHOUSE NEGATIVE (Negative)
[2025-02-02 22:31] VITALS: BP 169/78; PULSE 81; RESP 12; TEMP 36.8; O2SAT 99
--- OUTSIDE RECORDS SUMMARY | 2025-02-02 22:45 | XMS_ITS | Data Portability ---
Author Organization [facility], PAIN OFFICE Address [address] [address],[facility] [address] [place] [address] Care Team Providers Care Filter Cleaner Name Role Phone MELISSA AVITIA Primary Care Provider Assessment Encounter Date Assessment Date Assessment LastModified by Organization Details LastModified Time 01/28/2021 01/28/2021 Sabrina Valdez is a 86 [...] booked for the same. 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 [email or web address] Not available 03/10/2021 15:13:35 07/13/2024 07/13/2024 Sabrina Valdez is a 89 year old woman with mid to low back pain . On exam ,she has pain on flexion. MRI Lumbar spine shows there has been an interval vertebroplasty at T12 since the previous examination. There was a prior vertebroplasty at L1 with retrolisthesis of bone fragments again noted. There is also compression deformity at the L4 vertebral body which appears predominantly old . There is no new compression fracture identified. [...] booked for the same. 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 [email or web address] Not available 07/13/2024 13:47:03 07/18/2024 07/18/2024 Sabrina Valdez is a 89 year old woman with mid to low back pain . On exam ,she has pain on flexion. MRI Lumbar spine shows there has been an interval vertebroplasty at T12 since the previous examination. There was a prior vertebroplasty at L1 with retrolisthesis of bone fragments again noted. There is also compression deformity at the L4 vertebral body which appears predominantly old . There is no new compression fracture identified. Mild disc herniation and degenerative changes multiple levels of the lumbar spine with associated mild compression of the dural sac and foraminal stenosis similar to the previous studies. Mild intrahepatic bile duct dilatation. She is here for a trial of Lumbar epidural steroid injection under fluoroscopic guidance . The risks and benefits of the procedure were discussed in detail. She wishes to proceed. She will follow up in four weeks. [email or web address] Not available 07/20/2024 09:51:43 08/23/2024 08/23/2024 Sabrina Valdez is a 89 year old woman with mid to low back pain . On exam ,she has pain on flexion. MRI Lumbar spine shows there has been an interval vertebroplasty at T12 since the previous examination. There was a prior vertebroplasty at L1 with retrolisthesis of bone fragments again noted. There is also compression deformity at the L4 vertebral body which appears predominantly old . There is no new compression fracture identified. Mild disc herniation and degenerative changes multiple levels of the lumbar spine with associated mild compression of the dural sac and foraminal stenosis similar to the previous studies. Mild intrahepatic bile duct dilatation..Repea t Lumbar epidural steroid injection in two months under fluoroscopic guidance was recommended. The risks and benefits of the procedure were discussed in detail. She wishes to proceed. An appointment has been booked for the same. 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 I will also prescribe her diclofenac gel for her mid back pain She is having cramps in her legs and I have advised her to drink electrolyte drinks to stay hydrated [email or web address] Not available 08/23/2024 16:18:18 Plan of Treatment Reminders Order Date Submit Date Provider Last Modified By Organization Details Last Modified Time Details Appointments None recorded. Lab None recorded. Referral None recorded. Procedures None recorded. Surgeries None recorded. Imaging None recorded. Medication Orders Voltaren Arthritis Pain 1 % topical gel 2024 025 [id number], [address], [place], [id number], 16:18:54 lidocaine 5 % topical patch 2020 021 [id number], [address], [place], [id number], 10:29:08 Patient TargetsNo targets recorded. Patient Instructions Encounter Date Encounter Id Patient Instructions Last Modified By Organization Details Last Modified Time 01/28/2021 [id number] She was advised against bed rest lasting longer than four days and to continue activities as tolerated. [email or web address] Not available 01/28/2021 10:25:51 03/10/2021 [id number] She was advised against bed rest lasting longer than four days and to continue activities as tolerated. [email or web address] Not available 03/10/2021 15:12:58 07/13/2024 [id number] She was advised against bed rest lasting longer than four days and to continue activities as tolerated. [email or web address] Not available 07/13/2024 13:44:23 07/18/2024 [id number] She was advised against bed rest lasting longer than four days and to continue activities as tolerated. [email or web address] Not available 07/20/2024 09:24:41 08/23/2024 [id number] She was advised against bed rest lasting longer than four days and to continue activities as tolerated. [email or web address] Not available 08/23/2024 16:14:35 Reason for Referral None Reported. Problems Name Problem SNOMED Code Status Onset Date Resolution Date Notes Provider Name and Address Organization Details Recorded Time Spinal stenosis of lumbar region 94623984 Active Pablo goldsmith MD [address] , [address], [place], [address], [place] [facility] 09:54:00 Degeneration of lumbar intervertebral disc 66896820 Active Pablo goldsmith MD [address] , [address], [place], [address], [place] [facility] 11:47:58 Compression fracture of lumbar spine 524680592 Active Pablo goldsmith MD [address] , [address], [place], [address], [place] [facility] 11:48:13 Lumbosacral spondylosis without myelopathy 85356274 Active Pablo goldsmith MD [address] , [address], [place], [address], [place] [facility] 11:48:26 Lumbar radiculopathy 635987102 Active 2024 Pablo goldsmith MD [address] , [address], [facility] [place], [address], [place] [facility] 09:54:03 Problem Notes None recorded. Procedures Surgical History Date Name Laterality Status Provider Name and Address Organization Details Recorded Time 07/19/19 25 Lumbar Epidural steroid injection under fluoroscopic guidance completed Pablo Hoffman MD [address] , [address], [place], [address], [place] [facility] 07/20/2024 09:50:29 01/29/20 21 Lumbar Epidural steroid injection under fluoroscopic guidance completed Pablo Hoffman MD [address] , [address], [place], [address], [place] [facility] 01/28/2021 10:26:51 07/17/19 21 Lumbar Epidural steroid injection under fluoroscopic guidance completed Pablo Hoffman MD [address] , [address], [place], [address], [place] [facility] 07/16/2020 10:54:35 04/25/19 21 Lumbar Epidural steroid injection under fluoroscopic guidance completed Pablo Hoffman MD [address] , [address], [place], [address], [place] [facility] 04/24/2020 16:07:20 11/14/19 20 Lumbar Epidural steroid injection under fluoroscopic guidance completed Pablo Hoffman MD [address] , [address], [place], [address], [place] [facility] 11/14/2019 11:07:40 08/15/19 20 Lumbar Epidural steroid injection under fluoroscopic guidance completed Pablo Hoffman MD [address] , [address], [place], [address], [place] [facility] 08/15/2019 13:57:27 04/26/19 20 Lumbar Epidural steroid injection under fluoroscopic guidance completed Pablo Hoffman MD [address] , [address], [place], [address], [place] [facility] 04/27/2019 10:57:23 12/21/19 19 Lumbar Epidural steroid injection under fluoroscopic guidance completed Pablo Hoffman MD [address] , [address], [place], [address], [place] [facility] 12/23/2018 12:44:19 07/17/20 19 Lumbar Epidural steroid injection under fluoroscopic guidance completed Pablo Hoffman MD [address] [facility] , [address], [place], [address], [facility] 08/25/2018 11:41:39 Joint Replacement completed Jenniferradha Olivares [facility] 08/18/2018 11:00:01 Thyroid Surgery completed Jenniferradha Olivares [facility] 08/18/2018 11:00:13 repair of entropion completed Sophie Marieo [facility] 07/13/2024 10:13:46 surgical procedure on eye region completed Sophie Perezrino [facility] 07/13/2024 10:14:48 Mohs surgery completed Sophie Marieo [facility] 07/13/2024 10:14:57 Imaging Results None recorded. Procedure Notes None recorded. Medical Equipment None Reported. Allergies Allergen ID Allergen Name Allergen Category Reaction Reaction Severity Criticality Documentation Date Start Date Code Code System Note Provider Name and Address Organization Details Recorded Time 34135 tramadol medicatio n dizziness Not available Not available 08/18/2018 87680 RxNorm Rita ruby [place] [facility] 5 14:01:06 18572 sertralin e medicatio n Not available Not available Not available 08/18/2018 56682 RxNorm Rita ruby [place] [facility] 5 14:00:55 64806 Arthrotec medicatio n Not available Not available Not available 08/18/2018 Myrna Blevins flori [facility] 1 10:36:20 Medications Name Sig Start Date Stop Date Status Note LastModified by Organization Details LastModified Time Prescript ion - Prior Authoriza tion Request active Not Available Not Available Not Available celecoxib 200 mg capsule 08/18 completed Not Available Not Available Not Available amoxicill in 500 mg capsule TAKE 4 CAPSULES BY MOUTH 1 HOUR BEFORE APPOINTM ENT active Not Available Not Available No t Available Colace 100 mg capsule TK 1 C PO ONCE D HS PRF CONSTIPA TION 08/14 completed Not Available Not Available Not Available acetamino phen 325 mg tablet TK 2 TS PO Q 4 H FOR 5 DAYS PRF PAIN 03/10 completed Not Available Not Available Not Available prednison e 10 mg tablet TAKE 1 TABLET BY MOUTH DAILY active Not Available Not Available No t Available tizanidin e 2 mg tablet 08/18 completed Not Available Not Available Not Available atorvasta tin 10 mg tablet TAKE 1 TABLET BY MOUTH DAILY active Not Available Not Available No t Available citalopra m 10 mg tablet TAKE 0.5 TABLET BY MOUTH DAILY 07/13 completed Not Available Not Available Not Available hydrocodo ne 5 mg-acetam inophen 325 mg tablet 04/20 completed Not Available Not Available Not Available meloxicam 15 mg tablet TAKE 1 TABLET BY MOUTH DAILY 01/09 completed Not Available Not Available Not Available betametha sone, augmented 0.05 % topical cream APPLY SPARINGL Y TO RASH ON CHEST TWICE DAILY FOR 1 - 2 WEEKS THEN STOP. CALL FOR APPT IF NO IMPROVEM ENT active Not Available Not Available No t Available amlodipin e 2.5 mg tablet TAKE [...] Not Available Not Available No t Available triamcino lone acetonide 0.1 % topical cream APPLY TOPICALL Y TO THE AFFECTED AREA DAILY active Not Available Not Available No [...] Available Not Available Not Available Fluzone High-Dose (PF) 180 mcg/0.5 mL intramusc ular syringe ADM 0.5ML IM UTD 08/18 completed Not Available Not Available Not Available Voltaren Arthritis Pain 1 % topical gel APPLY 4 GRAMS TO THE AFFECTED AREA(S) BY TOPICAL ROUTE 2 TIMES PER DAY 2024 active Not Available Not Available Not Avai lable Fluzone High-Dose Quad (PF) 240 mcg/0.7 mL IM syringe ADM 0.7ML IM UTD 07/16 completed Not Available Not Available Not Available Paxlovid 300 mg (150 mg x 2)-100 mg tablets in a dose pack TK 2 NIRMATRE LVIR TS AND 1 RITONAVI R T TOGETHER PO BID FOR 5 DAYS 07/13 completed Not Available Not Available Not Available Vitals Date Recorded Body height Heart rate Oxygen saturation Body mass index (BMI) Body weight Pain severity - 0-10 verbal numeric rating [Score] - Reported Systolic And Diastolic Provider Name and Address Organization Details Last Updated DateTime 2 157.48 cm 84 /min 98 % 23.8 kg/m2 27086.0 1 g 6 161/83 mm[Hg] Pablo goldsmith MD [address] [facility] , [address], [place], [address], [place] [facility] 2 14:30:24 Date Recorded Heart rate Oxygen saturation Pain severity - 0-10 verbal numeric rating [Score] - Reported Systolic And Diastolic Provider Name and Address Organization Details Last Updated DateTime 07/13/2024 88 /min 96 % 7 174/90 mm[Hg] Sophie Jmaes [place] - [facility] 5 09:53:26 Date Recorded Heart rate Oxygen saturation Systolic And Diastolic Provider Name and Address Organization Details Last Updated DateTime 07/18/2024 79 /min 95 % 167/76 mm[Hg] Rita Paz [place] [facility] 07/18/2024 13:59:32 Date Recorded Heart rate Oxygen saturation Pain severity - 0-10 verbal numeric rating [Score] - Reported Systolic And Diastolic Provider Name and Address Organization Details Last Updated DateTime 08/23/2024 82 /min 97 % 6 142/73 mm[Hg] Ama ramirez [place] [facility] 08/23/2024 15:20:39 Date Recorded Body height Heart rate Oxygen saturation Systolic And Diastolic Provider Name and Address Organization Details Last Updated DateTime 01/28/2021 157.48 cm 90 /min 98 % 188/92 mm[Hg] Myrna Blevins [place] [facility] 01/28/2021 09:59:11 Social History Question Answer Notes LastModified by Organizat ion Details LastModified Time Tobacco Smoking Status Never Smoker Not Available [facility] 11/24/2019 03:16:11 Which Illicit Or Recreational Drugs Have You Used? No [id number] Information not available 11/24/2019 Education Post Graduate Information not available 08/18/2018 What Was The Date Of Your Most Recent Tobacco Screening? 08/25/2018 [id number] Information not available 11/24/2019 Sex: Unknown Functional Status Question Answer Note LastModified by Organizat ion Details LastModified Time What is your level of alcohol consumption? None [id number] Information not available 11/24/2019 Are you currently employed? 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 Family History Relationship Description Onset Age of this Age Resolved Age Notes LastModified by Organization Details LastModified Time Father No current problems or disability [email or web address] Not available 08/18 10:58:23 Mother No current problems or disability [email or web address] Not available 08/18 10:58:23 Medical History Condition Response Arthritis Y Osteoporosis Y Hypothyroidism Gynecological HistoryNo gynecological history recorded. Obstetrics History GPAL:G 0 P 0 0 0 0 Past Encounters Encounter ID Performer Location Encounter Start Date Encounter Closed Date Diagnosis/Indication Diagnosis SNOMED-CT Code Diagnosis ICD10 Code Diagnosis IMO Codes Diagnosis Note [id number] Pablo Hoffman MD PAIN OFFICE [address] [place] [address] 08/18/2018 10:15:01 08/18/2018 13:44:22 Spinal stenosis of lumbar region 21284741 M48.061 Degenerati on of lumbar intervertebral disc 74366498 M51.36 Compressio n fracture of lumbar spine 549632931 M48.56XA Lumbosacra l spondylosis without myelopathy 62572952 M47.817 [id number] Pablo Hoffman MD PAIN OFFICE [address] [place] [address] 08/24/2018 10:51:53 08/25/2018 14:18:09 Spinal stenosis of lumbar region 28986447 M48.061 Degenerati on of lumbar intervertebral disc 77486158 M51.36 Compressio n fracture of lumbar spine 937444300 M48.56XA Lumbosacra l spondylosis without myelopathy 12048625 M47.817 [id number] Pablo Hoffman MD [facility] PA[facility] OFFICE [address] [place] [address] 09/15/2018 10:59:59 09/15/2018 11:46:53 Spinal stenosis of lumbar region 81897996 M48.061 Degenerati on of lumbar intervertebral disc 39641673 M51.36 Compressio n fracture of lumbar spine 453228228 M48.56XA Lumbosacra l spondylosis without myelopathy 98380258 M47.817 [id number] Pablo Hoffman MD PAIN OFFICE [address] [place] [address] 12/20/2018 15:10:51 12/23/2018 12:46:34 Spinal stenosis of lumbar region 52878982 M48.061 Degenerati on of lumbar intervertebral disc 67447380 M51.36 Compressio n fracture of lumbar spine 117154451 M48.56XA Lumbosacra l spondylosis without myelopathy 60357761 M47.817 [id number] Pablo Hoffman MD PAIN OFFICE [address] [place] [address] 04/21/2019 09:44:53 04/21/2019 11:56:43 Spinal stenosis of lumbar region 63914943 M48.061 Degenerati on of lumbar intervertebral disc 34525277 M51.36 Compressio n fracture of lumbar spine 979004226 M48.56XA Lumbosacra l spondylosis without myelopathy 29017237 M47.817 [id number] Pablo Hoffman MD PAIN OFFICE [address] [place] [address] 04/26/2019 10:45:05 04/27/2019 11:00:35 Spinal stenosis of lumbar region 95778854 M48.061 Degenerati on of lumbar intervertebral disc 30714633 M51.36 Compressio n fracture of lumbar spine 793506917 M48.56XA Lumbosacra l spondylosis without myelopathy 99585610 M47.817 [id number] Pablo Hoffman MD PAIN OFFICE [address] [facility] [place] [address] 08/15/2019 13:07:46 08/15/2019 14:00:49 Spinal stenosis of lumbar region 73527050 M48.061 Degenerati on of lumbar intervertebral disc 22790609 M51.36 Compressio n fracture of lumbar spine 266633966 M48.56XA Lumbosacra l spondylosis without myelopathy 51666533 M47.817 [id number] Pablo Hoffman MD PAIN OFFICE [address] [facility] [address] 11/14/2019 10:35:26 11/14/2019 16:11:23 Spinal stenosis of lumbar region 11624540 M48.061 Degenerati on of lumbar intervertebral disc 40385745 M51.36 Compressio n fracture of lumbar spine 605229058 M48.56XA Lumbosacra l spondylosis without myelopathy 13523904 M47.817 [id number] Pablo Hoffman MD PAIN OFFICE [address] [facility] [address] 04/24/2020 11:24:53 04/24/2020 16:10:10 Spinal stenosis of lumbar region 90374109 M48.061 Degenerati on of lumbar intervertebral disc 16942308 M51.36 Compressio n fracture of lumbar spine 414369909 M48.56XA Lumbosacra l spondylosis without myelopathy 75956132 M47.817 [id number] Pablo Hoffman MD PAIN OFFICE [address] [facility] [address] 07/16/2020 10:23:01 07/16/2020 11:24:41 Spinal stenosis of lumbar region 01626067 M48.061 Degenerati on of lumbar intervertebral disc 13255713 M51.36 Compressio n fracture of lumbar spine 552992318 M48.56XA Lumbosacra l spondylosis without myelopathy 76732900 M47.817 [id number] Pablo Hoffman MD PAIN OFFICE [address] [facility] [address] 09/05/2020 09:17:16 09/05/2020 11:27:59 Compression fracture of thoracic vertebra 6070338430 104 M48.54XA [id number] Pablo Hoffman MD [facility] PA[facility] [address] [facility] [address] 11/27/2020 10:46:23 11/27/2020 16:00:06 Compression fracture of thoracic vertebra 5691306503 104 M48.54XA Thoracic back pain 29395 8004 M54.6 [id number] Pablo Hoffman MD PAIN OFFICE [address] [facility] [address] 01/09/2021 14:15:10 01/20/2021 10:34:58 Spinal stenosis of lumbar region 30554628 M48.061 Degenerati on of lumbar intervertebral disc 54613282 M51.36 Compressio n fracture of lumbar spine 791290703 M48.56XA Lumbosacra l spondylosis without myelopathy 69882571 M47.817 [id number] Pablo Hoffman MD PAIN OFFICE [address] [address] 01/28/2021 09:46:18 01/28/2021 13:34:05 Spinal stenosis of lumbar region 12152218 M48.061 Degenerati on of lumbar intervertebral disc 90005391 M51.36 Compressio n fracture of lumbar spine 427625704 M48.56XA Lumbosacra l spondylosis without myelopathy 15335906 M47.817 [id number] Pablo Hoffman MD [facility] [address] [place] [address] 03/10/2021 14:21:44 03/10/2021 15:29:40 Spinal stenosis of lumbar region 86519405 M48.061 Degenerati on of lumbar intervertebral disc 96889815 M51.36 Compressio n fracture of lumbar spine 794060874 M48.56XA Lumbosacra l spondylosis without myelopathy 73060402 M47.817 [id number] Pablo Hoffman MD PAIN OFFICE [address] [facility] [address] 07/13/2024 09:30:04 07/13/2024 14:21:36 Degeneration of lumbar intervertebral disc 42334386 M51.362 1741334546 Spinal ana m nosis of lumbar region 88688205 M48.061 Compressio n fracture of lumbar spine 139752467 M48.56XA Lumbosacra l spondylosis without myelopathy 18146266 M47.817 [id number] Pablo Hoffman MD [facility] [address] [facility] [address] 07/18/2024 13:42:25 07/20/2024 10:27:20 Degeneration of lumbar intervertebral disc 94696268 M51.362 7300386090 Spinal ana m nosis of lumbar region 55540872 M48.061 M48.062 481520 Compressio n fracture of lumbar spine 175779672 M48.56XA Lumbosacra l spondylosis without myelopathy 94937606 M47.817 Lumbar radiculopathy 128 721622 M54.16 [id number] Pablo Hoffman MD PAIN OFFICE [address] [facility] [address] 08/23/2024 14:45:01 08/23/2024 16:20:29 Lumbar radiculopathy 663624500 M54.16 74271 Spinal ana m nosis of lumbar region 87397380 M48.062 822621 Degenerati on of lumbar intervertebral disc 41116600 M51.362 Compressio n fracture of lumbar spine 748305811 M48.56XA Lumbosacra l spondylosis without myelopathy 86293132 M47.817 Health Concerns Section Related Observation LastModified by Organization Detai ls LastModified Time None Recorded Concern Status LastModified by Organization Details LastModified Time None Recorded Advance Directives Directive None Recorded Payers Insurance Date Sequence Insurance Name Policy Number Policy Wyman Covered Member ID Wyman Member ID Guarantor Name 08/20/2024 2 [place] [id number] Sabrina Valdez [id number] Sabrina Valdez 08/20/2024 1 MED[place] B-[place] [facility] [employer] Sabrina Valdez [id number] Sabrina Carcamoliam Notes Date Note Type Note Provider Name and Address Organization Details Recorded Time 01/28/2021 text/html She is here for a repeat lumbar epidural steroid injection under fluoroscopic guidance. Pablo Hoffman MD [address] [facility] , [address], [place], [address], [place] [facility] 01/28/2021 13:57:16 03/10/2021 text/html This [...] or bowel incontinence. Pablo Hoffman MD [address] [facility] , [address], [place], [address], [place] [facility] 03/10/2021 15:38:53 07/13/2024 text/html She is here for a follow up. She was last seen on 03/10/2021. She states her daughter has moved to [facility] to help her daughter. She lives alone but has a good community of friends. One of her friends with her today. She went on a trip and fell [...] severe pain. She had physical therapy at [facility] and was in severe pain . She had high blood pressure and had an anxiety attack and had to go to the ER. She states she wants another steroid injection. She feels the last injection helped.She has seen the clay dry press mixer operator and had injections for her osteoporosis. Pablo Hoffman MD [address] [facility] , [address], [place], [address], [place] [facility] 07/13/2024 15:00:22 07/18/2024 text/html She is here for a lumbar epidural steroid injection under fluoroscopic guidance. Pablo Hoffman MD [address] [facility] , [address], [place], [address], [facility] - [facility] Management 07/20/2024 10:31:07 08/23/2024 text/html She is here for a follow up. She had a lumbar epidural steroid injection under fluoroscopic guidance on 07/18/2024. She reports good ongoing pain benefit. She is complaining of mid back pain. She states she is lonely and pain is greater when she is alone. She states her daughter has moved to [facility] to help her daughter. She lives alone but has a good community of friends. One of her friends with her today. She went on a trip and fell [...] severe pain. She had physical therapy at [place] and was in severe pain . She had high blood pressure and had an anxiety attack and had to go to the ER. She states she wants another steroid injection. She feels the last injection helped.She has seen the clay dry press mixer operator and had injections for her osteoporosis. Pablo Hoffman MD [address] [facility] , [address] [address], [place], [address], [facility] - Pain Management 08/24/2024 08:52:43 OBGyn Episode No OBEpisode recorded.
--- OUTSIDE RECORDS SUMMARY | 2025-02-02 22:46 | XMS_ITS | Patient Health Record ---
Author Organization [facility] Address [address] [place] [address] Care Team Providers Care Life Scientist Name Role Phone MELISSA AVITIA MD Primary Care Provider FRANCES Barney Unavailable ANCHORAGE, NURSING Unavailable [phone] Allergies Allergen (clinical drug ingredient) Drug/Non Drug Allergy documented on EMR Reaction Allergy Type Onset Date Status predniSONE depressed, paranoid, dizzy Drug Allergy Active tramadol traMADol Unknown Drug Allergy Active Reason For Referral No Information Medications Medication SIG (Take, Route, Frequency, Duration) Notes Start Date End Date Status Calcium 600+D 600-200 MG-UNIT Tablet 1 tab(s) orally daily Acti ve Zoledronic Acid 5 MG/100ML Solution 5 mg intravenously once 12/04/2019 Acti ve Centrum Silver - Tablet 1 tab orally once a day Active Atorvastatin Calcium 10 MG Tablet 1 tab(s) orally once a day; Duration: 30 day(s) Active amLODIPine Besylate 5 MG Tablet 1 tablet Orally Once a day; Duration: 30 day(s) Active Citalopram Hydrobromide 10 MG Tablet 1/2 tab orally once a day; Duration: 30 day(s) Active Social History Tobacco Use: Social History Observation Description Date Details (start date - stop date) Never Smoker NA - NA Social History Tobacco Use: Social Info Question Answer Notes Smoking Are you a: never smoker Additional Details Category Social Info Options Details General 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, [employer]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 Past year's travels: none 2021 alcohol use: no drug use: no Coffee/Tea/Soda: yes 1 cup coffee da pola 1 tea daily no soda Marital Status experience no Living with alone Pets none smokers in household no pt never sm lidia Section Notes: never smoked never smoked never smoked Problems Problem Type SNOMED Code ICD Code Onset Dates Problem Status W/U Status Risk Notes Problem Osteoporosis (90358985) Osteoporosis (M81.0) Active confirmed Problem Recurrent major depression (15729788) Episode of recurrent major depressive disorder, unspecified depression episode severity (F33.9) Active confirmed Encounters Encounter Location Date Provider Diagnosis [facility] [address] [place] [address] 04/14/2024 [facility] Plan Of Treatment Future Test Test Name Order Date Stress Echocardiogram 07/19/2019 XR SPINE THOACOLUMBAR 3 VIEWS 07/19/2019 BASIC METABOLIC PANEL 01/05/2022 Insurance Providers Payer Name Payer Address Payer Phone Subscriber Number Group Number Insured Name Patient Relationship to Insured Coverage Start Date Coverage End Date MEDICARE [employer] [address] [place] [address] [id number] MARU DE LEON Self - patient is the insured [employer] [facility] [address] [place] [address] [id number] MARU DE LEON Self - patient is the insured 0 Medical (General) History Medical History History ICD Code depressiom osteoarthritis sees Dr. Hoffman for pain management osteoporosis - s/p verterbra l compression fx 2018 following fall; s/p kyphoplasty x 2; alendronate for 1-2 yrs, ~ 2009; zoledronic acid 12/2019, 12/2020 Surgical History Surgery Date(Month/Year) kyphoplasty - [facility] 09/2020 Kyphoplasty - Dr. Da Silva 03/2019 Kyphoplasty - Dr. Da Silva 02/2019 D&C for uterine polyps- Dr. Zapien 2018 THR --right 09/2017 thyroid 1987 Hospitalization History Reason Date(Month/Year) ER in [place]- Fall, 2nd spinal compre ssion fracture 01/2019 for above
--- OUTSIDE RECORDS SUMMARY | 2025-02-02 22:46 | XMS_ITS | Encounter Summary ---
Author Organization [facility] Address [address] [place] [address] [place] [address] Phone Care Team Providers Care Client Care Coordinator Name Role Phone Milady Miranda MD Primary Care Provider [phone] Encounter Details Date Type Department Care Team (Late st Contact Info) Description 12/27/2023 Ancillary Orders [address] [address] System, Provider Not In, PhD [address] [address] Social History Tobacco Use Types Packs/Day Years [...] Care Team (Late st Contact Info) Description 12/28/2025 10:40 AM EST Office Visit [facility] [address] [place] [address] Eloisa Jolly MD [address] [place] [address] [email or web address] documented as of this encounter Results * [...] on filedocumented in this encounter Care Teams Client Care Coordinator Relationship Specialty Start Date End Date Milady Miranda MD [facility] [place] [address] PCP - General Internal Medicine 06/15/22 documented as of this encounter Additional Source Comments The information contained in this document represents components of the legal health record. It is not the complete legal health record.[facility]
--- OUTSIDE RECORDS SUMMARY | 2025-02-02 22:46 | XMS_ITS | Encounter Summary ---
Author Organization [facility] Address [address] [place] [address] [place] [address] Phone Care Team Providers Care International Trade Manager Name Role Phone Milady Miranda MD Primary Care Provider [phone] Encounter Details Date Type Department Care Team (Late st Contact Info) Description 12/27/2023 Ancillary Orders [address] [address] System, Provider Not In, PhD [address] [address] Social History Tobacco Use Types Packs/Day Years [...] Description 12/28/2025 10:40 AM EST Office Visit [facility] [address] [place] [address] Eloisa Jolly MD [address] [place] [address] [email or web address] documented as of this encounter Results * [...] on filedocumented in this encounter Care Teams International Trade Manager Relationship Specialty Start Date End Date Milady Miranda MD [facility] [place] [address] PCP - General Internal Medicine 06/15/22 documented as of this encounter Additional Source Comments The information contained in this document represents components of the legal health record. It is not the complete legal health record.[facility]
--- OUTSIDE RECORDS SUMMARY | 2025-02-02 22:46 | XMS_ITS | Encounter Summary ---
Author Organization [facility] Address [address] [place] [address] [place] [address] Phone Care Team Providers Care Commercial Green Retrofit Architect Name Role Phone Milady Miranda MD Primary Care Provider [phone] Encounter Details Date Type Department Care Team (Late st Contact Info) Description 12/27/2023 Ancillary Orders [address] [address] System, Provider Not In, PhD [address] [address] Social History Tobacco Use Types Packs/Day Years [...] Description 12/28/2025 10:40 AM EST Office Visit [facility] [address] [place] [address] Eloisa Jolly MD [address] [place] [address] [email or web address] documented as of this encounter Results * [...] on filedocumented in this encounter Care Teams Commercial Green Retrofit Architect Relationship Specialty Start Date End Date Milady Miranda MD [facility] [place] [address] PCP - General Internal Medicine 06/15/22 documented as of this encounter Additional Source Comments The information contained in this document represents components of the legal health record. It is not the complete legal health record.[facility]
--- OUTSIDE RECORDS SUMMARY | 2025-02-02 22:46 | XMS_ITS | Data Portability ---
Author Organization [facility], Main Office Address [address] [facility] [place] [address] Care Team Providers Care Chief Innovation Officer Name Role Phone KRANTHI SY - 3RD [...] Time Osteoporoti c fracture of sacral vertebra [id number] 9106 Active 2021 Denita ruby, [facility] 2 13:52:01 Depressive disorder 69133310 Active 2021 Denita ruby, [facility] 2 13:52:42 Mixed hyperlipide abdi 008285102 Active 2021 Denita Corrigan null, [facility] 2 13:52:43 Essential hypertensio n 15465071 Active 2021 Denita ruby, [facility] 2 13:52:52 Low back pain 963144967 Active 2021 Denita ruby, [facility] 2 14:23:30 Spinal stenosis of lumbar region 06362635 Active 2021 Selina Palm MD [address] [facility], [address], [place], [address] [place] [address] 2 12:15:00 Problem Notes None recorded. Medical Equipment None Reported. Allergies Allergen ID Allergen Name Allergen Category Reaction Reaction Severity Criticality Documentation Date Start Date Code Code System Note Provider Name and Address Organization Details Recorded Time 79824 diclofena c Not available Not available Not available Not available 07/09/2021 3355 RxNorm Denita Corrigan null, [facility] 2 13:43:59 22042 misoprost ol medicatio n Not available Not available Not available 07/09/2021 16972 RxNorm Denita Spring null, [facility] 2 13:44:08 [address]4635 sertralin e medicatio n Not available Not available Not available 07/09/2021 93018 RxNorm Denita Meenu null, [facility] 2 13:44:17 99474 tramadol medicatio n Not available Not available Not available 07/09/2021 53670 RxNorm Denita Corrigan [facility], [facility] 2 13:44:23 35870 prednison e medicatio n Not available Not available Not available 07/09/2021 8640 RxNorm Denita Meenu [facility], [facility] 2 13:44:30 [address]8916 oxycodone medicatio n Not available Not available Not available 07/11/2021 7804 RxNorm CRISTOFER CASTAÑEDA, ACTIVITIES OFFICER [address] [facility], [address], [place], [address], [facility] 2 15:02:32 Vitals Date Recorded Heart rate Oxygen saturation Systolic And Diastolic Provider Name and Address Organization Details Last Updated DateTime 07/09/2021 67 /min 96 % 146/56 mm[Hg] Denita Corrigan [facility] 07/09/2021 13:49:33 Date Recorded Heart rate Respiratory rate Body temperature Oxygen saturation Systolic And Diastolic Provider Name and Address Organization Details Last Updated DateTime 2 84 /min 20 /min 97.4 [degF] 98 % 159/86 mm[Hg] CRISTOFER CASTAÑEDA ACTIVITIES OFFICER [address] , [address], [place], [address], [employer] 2 15:23:14 Date Recorded Body temperature Oxygen saturation Provider Name and Address Organization Details Last Updated DateTime 07/14/2021 97.7 [degF] 97 % VINCENT RAYGOZA [address] [facility], [address], [place], [address], [employer] 07/14/2021 15:06:49 Date Recorded Heart rate Respiratory rate Body temperature Oxygen saturation Body height Body mass index (BMI) Body weight Systolic And Diastolic Provider Name and Address Organization Details Last Updated DateTime 2 86 /min 18 /min 97.7 [degF] 99 % 154.94 cm 24.6 kg/m2 87677.0 1 g 126/76 mm[Hg] Selina Palm MD [address] [facility], [address], [place], [address], [employer] 2 11:30:47 Social History Question Answer Notes LastModified by [employer] Details LastModified Time Tobacco Smoking Status Never Smoker Denita ruby, [facility] [employer] 07/09/2021 14:19:46 Do You Have An Advance Directive? Yes Information not available 07/09/2021 What Is Your Code Status? DNR/DNI Information not available 07/09/2021 Where Do You Live? [facility] Lives Only On 1st Floor. Information not available 07/15/2021 Legal Guardian? No Informati on not available 07/15/2021 Do You Have A Medical Power Of Python Architect? Yes Information not available 07/15/2021 What Was The Date Of Your Most Recent Tobacco Screening? 07/15/2021 Information not available 07/15/2021 Do You Have An Out Of Hospital DNR? Yes Information not available 07/15/2021 What Is Your Relationship Status? Information not available 07/15/2021 Has Tobacco Cessation Counseling Been Provided? No N/a As Pt Is Non-smok er Information not available 07/15/2021 Sex: Unknown Functional Status Question Answer Note LastModified by [employer] Details LastModified Time Do you use any illicit or recreational drugs? No Information not available 07/15/2021 Do you or have you ever used any other forms of tobacco or nicotine? No Information not available 07/15/2021 What is your level of alcohol consumption? None Information not available 07/09/2021 Mental Status None recorded. Family History Nothing Reported Notes:non-contributory Medical History No medical history recorded. Gynecological HistoryNo gynecological history recorded. Obstetrics History GPAL:G 0 P 0 0 0 0 Immunizations Vaccine Type Date Status Note Provider Nam e and Address Organization Details Recorded Time RSV, recombinant, protein subunit RSVpreF, adjuvant reconstituted, 0.5 mL, PF 3 completed Aimeeeulalia Mejia [facility] 06/03/2023 11:20:13 Pneumococcal conjugate PCV 13 0 completed Aimee Mejia [facility] 06/03/2023 11:20:26 Influenza, adjuvanted, quadrivalent, PF 2 completed Aimeeeulalia Mejia [facility] 06/03/2023 11:20:45 Influenza, adjuvanted, quadrivalent, PF 3 completed Aimeeeulalia Mejia [facility] 06/03/2023 11:20:55 COVID-19, mRNA, LNP-S, bivalent, PF, 30 mcg/0.3 mL dose 1 completed Aimeeeulalia Mejia [facility] 06/03/2023 11:21:16 COVID-19, mRNA, LNP-S, bivalent, PF, 30 mcg/0.3 mL dose 1 completed Aimee Mejia [facility] 06/03/2023 11:21:21 COVID-19, mRNA, LNP-S, bivalent, PF, 30 mcg/0.3 mL dose 1 completed Aimeeeulalia Mejia [facility] 06/03/2023 11:21:28 COVID-19, mRNA, LNP-S, bivalent, PF, 30 mcg/0.3 mL dose 2 completed Aimee Mejia [facility] 06/03/2023 11:21:41 COVID-19, mRNA, LNP-S, PF, tin-sucrose, 30 mcg/0.3 mL 3 completed Aimee ruby, [facility] 06/03/2023 11:21:52 zoster live 5 completed Aimee ruby [facility] 06/03/2023 11:22:25 Past Encounters Encounter ID Performer Location Encounter Start Date Encounter Closed Date Diagnosis/Indication Diagnosis SNOMED-CT Code Diagnosis ICD10 Code Diagnosis IMO Codes Diagnosis Note [id number] VINCENT Lucia [address] [address] 07/09/2021 13:40:50 07/11/2021 14:41:11 Osteoporotic fracture of sacral vertebra 1285840343 2124017 M80.08XA Pain control with Tylenol, Salonpas patchPT OT eval and treatMonit or Essential hypertension 02375784 I10 Norvasc 5 mg dailyMonit or bp Mixed hyperlipidemia 267 218011 E78.2 Atorvastat in 10 mg daily Depressive disorder 3548 9007 F32.A Sertraline 5 mg dailyMonit or moodPsych eval prn Low back pain 923146198 M54.59 No narcotic pain medication -patient reacts poorly to thisConsid er pain management referral if pain not improvingC ontinue tylenolMon itor Recurrent falls 49008596 2 R29.6 PT OT eval and treat [id number] VINCENT RAYGOZAare [address] [address] 07/11/2021 15:02:45 07/14/2021 15:37:35 Low back pain 035923466 M54.59 tylenol arthritis 2 tabs q 8 hrs ibuprofen 600 mg q 6 hrs prn salon pas to back qd discussed neurontin with pt and she wants to try as she is having nerve pain-noted as where she points to her pain neurontin 100 mg tid will be added dc of oxycodone as she notes she falls with it-added as allergy monitor pain [id number] VINCENT RAYGOZA [facility] [address] [address] 07/14/2021 09:04:11 07/16/2021 15:13:28 Low back pain 614093809 M54.59 tylenol arthritis 2 tabs q 8 hrs prn ibuprofen 600 mg q 6 hrs prn salon pas to back qd neurontin 100 mg tid was added Wednesday and she hasn't been taking as she notes bad reaction unclear what reaction was if any but will discontinu e regardless monitor pain-noted relief with prn medication s [id number] Selina Palm MD [address] [place] [address] 07/15/2021 11:20:07 07/17/2021 08:19:40 Osteoporotic fracture of sacral vertebra 0942453867 3270903 M80.08XA As above.Cont inue vitamin D 1000 IU qd and MVI qd for osteoporos is. Essential hypertension 08006734 I10 Good control on amlodipine 5 mg qdMonitor BP and labs as outpt. Mixed hyperlipidemia 267 975622 E78.2 Continue atorvastat in 10 mg qd.F/U as outpt. Depressive disorder 3548 9007 F33.0 Continue sertraline 5 mg qd.Monitor moodF/U as outpt. Recurrent falls 02199327 2 R29.6 Will continue PT/OT as outpt.Cont inue fall precaution s. Spinal ana m nosis of lumbar region 39251802 M48.062 I suspect this is the primary [...] None Recorded Advance Directives Directive Y: Payers Insurance Date Sequence Insurance Name Policy Number Policy Wyman Covered Member ID Wyman Member ID Guarantor Name 07/11/2021 1 [place] [employer] Sabrina Valdez [id number] Sabrina Valdez 07/16/2021 2 [place] [id number] Sabrina Courtney [id number] Sabrina Courtney 08/01/2021 2 [id number] [id number] Sabrina Courtney [id number] Sabrina Courtney Notes Date Note Type Note Provider Name and Address Organization Details Recorded Time 07/09/2021 text/html 86 yo female with hx compression fractures, htn, hld, osteoporosis admit [...] for continued care and therapy. Denita ruby, [employer] 07/09/2021 14:24:18 07/11/2021 text/html A 86 year old female being seen for a acute rounding visit. Patient is noted to have continued back pain where the nerves come out and down her leg. She notes narcotics are not good for her as she falls. We discussed at length neurontin and she agrees to try. She uses her tylenol arthritis and ibuprofen also. Will check her again on wednesday to see if improvement. VINCENT RAYGOZA [address] [facility], [address], [place], [address], [employer] 07/11/2021 15:25:10 07/14/2021 text/html A 86 year old female being seen for a acute rounding visit. Patient is noted to be doing well. She ambulates independently about the unit. She uses tylenol arthritis and ibuprofen prn with good effect. She is looking at going home in the next few days. She denies any concerns except that she did not like the gabapentin and it was discontinued. VINCENT RAYGOZA [address] [facility], [address], [place], [address], [employer] 07/14/2021 15:10:41 07/15/2021 text/html This is an [...] have been set up, more extensive than MOVIE EDITOR which should help also. She says that pain is 6-7, but had been 9-10 before. She says pain starts in left sacroiliac area and goes down lateral left leg to calf. No weakness.Her PMH includes HTN, spinal stenosis, multiple compression fxs-s/p kyphoplasty on several, depression, HLD, osteoporosis, OA, and s/p right THR. Selina Palm MD [address] [facility], [address], [place], [address], [facility] - [employer] 07/15/2021 12:19:43 OBGyn Episode No OBEpisode recorded.
--- OUTSIDE RECORDS SUMMARY | 2025-02-02 22:46 | XMS_ITS | Clinical Summary ---
Author Organization [facility] Prior to 07/08/[address] [place] [address] Care Team Providers Care Installer Name Role Phone Milady Miranda MD Primary Care Provider Medications Medication Sig Dispensed Refills Start Date [...] age to complete this topic Care Teams Installer Relationship Specialty Start Date End Date Milady Miranda MD [address] [facility] [place] [address] PCP - General Club Room Attendant 01/06/22
--- OUTSIDE RECORDS SUMMARY | 2025-02-02 22:46 | XMS_ITS | Clinical Summary ---
Author Organization [facility] Address [address] [place] [id number] Phone Care Team Providers Care Marketing Project Manager Name Role Phone Milady Miranda MD Primary Care Provider [phone] Allergies Active Allergy Reactions Criticality Noted Date Comments Fluoxetine Unknown 06/26/2016 Sertraline Hcl Dizziness 06/26/2016 Tramadol Hcl Unknown 06/26/2016 Medications atorvastatin (LIPITOR) 10 MG tablet Take 10 mg by mouth daily. Active FOLIC ACID/MULTIVIT-M IN/LUTEIN (CENTRUM SILVER ORAL) Take 1 tablet by mouth daily. Active acetaminophen (TYLENOL) 325 mg tablet Take 1 tablet by mouth as needed. Active amLODIPine (NORVASC) 5 MG tablet Take 5 mg by mouth daily. 3 Active psyllium (METAMUCIL) 3.4 gram packet Take 1 packet by mouth. Active calcium carbonate-vitam in D3 1,500 mg (600 mg elemental)-200 units Tab Take 1 tablet by mouth daily. Active amoxicillin (AMOXIL) 500 MG capsule Take 500 mg by mouth. One hour prior to dentist appt, 4 tablets Active diclofenac sodium (VOLTAREN ARTHRITIS PAIN) 1 % Gel Apply 4 g topically as needed for other (free text field). 5 Active Active Problems Problem Noted Date Diagnosed Date Age-related osteoporosis wit hout current pathological fracture 06/15/2022 Assessment & Plan (12/28/2024 10:55 AM EST): 89 y.o. woman with hx vertebral compression fractures. S/p zoledronic acid infusion x 3, without issues tolerating, last early 2022. Clinically stable. No recent falls or fractures. Has been more active, underwent PT & exercising [facility]. Very careful to avoid falls. Getting good intake of calcium via diet and supplement. Seeing dentist regularly. Last bone density is in the osteopenic range, with relative stability in total hip/spine, insignificant decline in femoral neck. Labs last year were good & CTX was low-normal, consistent with persistent benefit from previous infusion. Will repeat labs fasting soon & repeat bone density prior to follow up next year. May consider another course of zoledronic acid if we see a significant increase in CTX or decrease in bone denstiy. Assessment & Plan (12/24/2023 2:44 PM EST): [...] today. Will call again for records from [facility]. Will obtain/review actual images of bone [...] hearing @ results. Will obtain records from [facility] & report of bone density from [facility]. Tentative plan will be to continue to observe w/o further pharmacologic rx, pending review of records/bone density. Spinal stenosis of lumbar region 07/15/2021 Essential hypertension 07/09/2021 On statin therapy 04/05/2017 Current use of aspirin 04/05/2017 Hyperlipidemia 01/13/2017 Right hip pain 01/13/2017 Primary osteoarthritis involving multiple joints 01/13/2017 nursing home current use of non -steroidal anti-inflammatories (NSAID) 01/13/2017 Encounters Date Type Department Care Team Description 12/28/2024 10:00 AM EST Office Visit [facility] Endocrinology [facility] [address] [place] [address] Eloisa Jolly MD Age-related osteoporosis without current pathological fracture (Primary Dx) 12/28/2024 Telephone [facility] Endocrinology [facility] [address] [place] [address] Eloisa Jolly MD Labs & Bone Density Orders; Lab Results from Last 3 Months Social History Tobacco Use Types Packs/Day Years Used Date Smoking Tobacco: Never Passive Smoke Exposure: Never Smokeless Tobacco: Never Tobacco Cessation:Counseling Given: Not Answered Alcohol Use Standard Drinks/Week Comments No 0 [...] Sign Reading Time Taken Comments Blood Pressure 138/82 12/28/2024 9:38 AM EST Pulse 88 12/28/2024 9:38 AM EST Temperature - - Respiratory Rate 20 12/28/2024 9:38 AM EST Oxygen Saturation 98% 12/28/2024 9:38 AM EST Inhaled Oxygen Concentration - - Weight 58.1 kg (128 lb) 12/28/2024 9:38 AM EST Height 154.9 cm (5' 1 ) 12/24/2023 8:23 AM EST Body Mass Index 24.19 12/24/2023 8:23 AM EST Plan of Treatment Upcoming Encounters Date Type Department Care Team (Late st Contact Info) Description 12/28/2025 10:40 AM EST Office Visit [facility] [address] [place] [address] Eloisa Jolly MD [address] [place] [phone] [email or web address] Health Maintenance Due Date Last Done Comments Adult Td,Tdap Booster 1936 DEPRESSION SCREENING 1948 RSV VACCINE (1 - 1-dose 75+ series) 01/18/2011 ZOSTER VACCINES (2 of 3) 11/06/2014 09/11/2014 PNEUMOCOCCAL VACCINES (50+ years) (2 of 2 - PCV20 or PCV21) 10/10/2020 10/11/2019 INFLUENZA VACCINE (#1) 2024 , 12/13/2018, 11/24/2017, Additional history exists COVID-19 VACCINE (3 - season) 2024 04/05/2020, 03/15/2020 OSTEOPOROSIS SCREENING INITIAL (ONE-TIME) Completed 12/28/2024, 12/07/2023 HEPATITIS A VACCINES Aged Out No [...] Procedure Name Priority Date/Time Associated Diagnosis Comments BETA-CROSSLAPS (B-CTX) Routine 12/29/2024 9:33 AM EST Age-related osteoporosis without current pathological fracture COMPREHENSIVE METABOLIC PANEL (CMP) Routine 12/29/2024 9:33 AM EST Age-related osteoporosis without current pathological fracture PARATHYROID HORMONE (PTH) Routine 12/29/2024 9:33 AM EST Age-related osteoporosis without current pathological fracture PHOSPHORUS Routine 12/29/2024 9:33 AM EST Age-related osteoporosis without current pathological fracture 25-OH VITAMIN D Routine 12/29/2024 9:33 AM EST Age-related osteoporosis without current pathological fracture BD DXA MONITORING Routine 12/28/2024 10: 17 AM EST Age-related osteoporosis without current pathological fracture from Last 3 Months Results * Comprehensive Metabolic Panel (CMP) (12/29/2024 9:33 AM EST) [facility] Sodium 142 136 - 145 mmol/L 12/29/2024 6:16 PM [facility] Potassium 4.2 3.4 - 5.1 mmol/L 12/29/2024 6:16 PM [facility] Chloride 106 98 - 107 mmol/L 12/29/2024 6:16 PM [facility] CO2 25 20 - 31 mmol/L 12/29/2024 6:16 PM [facility] Anion Gap 11 3 - 17 mmol/L 12/29/2024 6:16 PM [facility] BUN 15 6 - 23 mg/dL 12/29/2024 6:16 PM [facility] Creatinine 0.70 0.50 - 1.00 mg/dL 12/29/2024 6:16 PM [facility] eGFR 83 >59 mL/min/1.7 3m2 12/29/2024 6:16 PM [facility] Comment:Estimated glomerular filtration rate calculated using the CKD-EPI refit equation. Glucose 94 70 - 99 mg/dL 12/29/2024 6:16 PM [facility] Calcium 8.9 8.5 - 10.5 mg/dL 12/29/2024 6:16 PM [facility] AST 23 <33 U/L 12/29/2024 6:16 PM [facility] ALT 14 <34 U/L 12/29/2024 6:16 PM [facility] Alkaline Phosphatase 65 40 - 130 U/L 12/29/2024 6:16 PM [facility] Bilirubin, Total 0.8 0.0 - 1.2 mg/dL 12/29/2024 6:16 PM [facility] Total Protein 6.9 6.4 - 8.3 g/dL 12/29/2024 6:16 PM EST [facility] Albumin 4.2 3.5 - 5.2 g/dL 12/29/2024 6:16 PM EST [facility] Globulin 2.7 1.9 - 4.1 g/dL 12/29/2024 6:16 PM EST [facility] Blood (Blood) Venipuncture / Unknown 12/29/2024 9:33 AM EST 12/29/2024 9:34 AM EST Eloisa Jolly MD LAB BLOOD BKR ORDERABL ES Final Result Performing Organization Address City/[facility]/ZIP Co de Phone Number [address] [address] * Beta-CrossLaps (B-Ctx) (12/29/2024 9:33 AM EST) Beta-CrossLaps (B-CTx), S 171 pg/mL 01/01/2025 2:32 PM EST [facility] Comment: REFERENCE VALUE 148-967 (18-29 y) 150-635 (30-39 y) 131-670 (40-49 y) 183-1060 (50-59 y) 171-970 (60-69 y) 152-858 (>70 y) 136-689 (Premenopausal) 177-1015 (Postmenopausal) Flagging is based on the age-specific reference interval and not menopausal status. Blood (Blood) Venipuncture / Unknown 12/29/2024 9:33 AM EST 12/29/2024 9:34 AM EST us Eloisa Jolly MD LAB BLOOD BKR ORDERABL ES Final Result ONEYDA MON) [facility] [address] [place], [place] [id number] [place] [address] * (ABNORMAL) 25-OH Vitamin D (12/29/2024 9:33 AM EST) Pathologist [facility] 25-OH Vitamin D, Total 84(H) 20 - 50 ng/mL 12/29/2024 6:50 PM EST [facility] Comment: Severe deficiency: <10 ng/mL Mild to moderate deficiency: 10-19 ng/mL Optimum levels: 20-50 ng/mL Increased risk of hypercalciuria: 51-80 ng/mL Possible toxicity: >80 ng/mL Blood (Blood) Venipuncture / Unknown 12/29/2024 9:33 AM EST 12/29/2024 9:34 AM EST us Eloisa Jolly MD LAB BLOOD BKR ORDERABL ES Final Result Performing Organization Address [facility]/ZIP Co de Phone Number [address] [address] * Phosphorus (12/29/2024 9:33 AM EST) Pathologist [facility] Phosphorus 3.3 2.5 - 4.5 mg/dL 12/29/2024 6:16 PM EST [facility] Blood (Blood) Venipuncture / Unknown 12/29/2024 9:33 AM EST 12/29/2024 9:34 AM EST Eloisa Jolly MD LAB BLOOD BKR ORDERABL ES Final Result [address] [address] * Parathyroid Hormone (PTH) (12/29/2024 9:33 AM EST) Pathologist [facility] Parathyroid Hormone (PTH) 40 15 - 65 pg/mL 12/29/2024 6:50 PM EST [facility] Blood (Blood) Venipuncture / Unknown 12/29/2024 9:33 AM EST 12/29/2024 9:34 AM EST Eloisa Jolly MD LAB BLOOD BKR ORDERABL ES Final Result [facility] [address] [place] [address] * DEXA SCAN (12/07/2023 10:10 AM EDT) Historical Provider HEALTH MAINTENANCE Final Result from Last 3 Months or Most Recently Relevant to Health Maintenance Insurance MEDICARE PART A & B [employer] MEDEX SUPPLEMENT MEDICARE PART A & B [employer] MEDEX SUPPLEMENT MEDICARE PART A & B [employer] SUPPLEMENT MEDICARE PART A & B [employer] SUPPLEMENT MEDICARE PART A & B [employer] MED[employer] SUPPLEMENT MEDICARE PART A & B [facility] MEDEX SUPPLEMENT MEDICARE PART A & B [employer] SUPPLEMENT MEDICARE PART A & B [employer]EX SUPPLEMENT MEDICARE PART A & B [employer] MEDEX SUPPLEMENT Care Teams Marketing Project Manager Relationship Specialty Start Date End Date Milady Miranda MD [address] [place] [address] PCP - General Internal Medicine 06/15/22 Additional Source Comments The information contained in this document represents components of the legal health record. It is not the complete legal health record.[facility]
--- OUTSIDE RECORDS SUMMARY | 2025-02-02 22:46 | XMS_ITS | Patient Health Record ---
Author Organization [facility] Address [address] [place] [address] Care Team Providers Care Treasury Specialist Name Role Phone Ashely DIOP, Fred Primary Care Provider Zurdo Vallejo Unavailable [phone] Сергей DIOP, Harris Unavailable Unavailable Allergies Allergen (clinical drug ingredient) Drug/Non Drug Allergy documented on EMR Reaction Allergy Type Onset Date Status Sertraline HCl Unknown Drug Allergy Ac tive tramadol Tramadol HCl Unknown Drug Allergy Acti ve diclofenac / misoprostol Arthrotec Unknown Drug Allergy Active Reason For Referral No Information Medications Medication SIG (Take, Route, Frequency, Duration) Notes Start Date End Date Status Aleve Active Calcium + D 600-200 MG-UNIT Tablet 1 tablet with food Orally Once a day 09/26/2013 Active Centrum Silver Tablet Orally 09/26/2013 Active Antibiotic x 10 days for a cold Active Citalopram Hydrobromide Active Lipitor 10 MG Tablet 1 tablet Orally Onc e a day 09/26/2013 Active Social History Social History Additional Details Category Social Info Options Details Miscellaneous: Marital status: --u nder stress-- is 89 years old with Alzheimers--recemtly placed in a longterm 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 Section Notes: Nonsmoker; no sig alcohol Nonsmoker; no sig alcohol Problems Problem Type SNOMED Code ICD Code Onset Dates Problem Status W/U Status Risk Notes Problem Esophageal reflux (868178120) Esophageal reflux (530.81) Active confirmed Problem Cough (31603295) Cough (786.2) Active confirmed Plan Of Treatment No Information Insurance Providers Payer Name Payer Address Payer Phone Subscriber Number Group Number Insured Name Patient Relationship to Insured Coverage Start Date Coverage End Date MEDICARE OF [place] [address] [facility] [place] [address] [id number] THEAMARU DOUGLAS Self - patient is the insured MEDEX ATTN CLAIMS [address] [place] [address] [id number] MARU DE LEON Self - patient is the insured Medical (General) History Medical History History ICD Code Screening Colonos copy with only a hyperplastic polyp, internal hemorrhoids, diverticulosis Hyperlipidemia Depression/anxiety EGD in 2004 with only gastritis-neg. H.p ylori Back problems due to disc problems Denies MT,DM,CVA,Lung disease,renal dise ase Surgical History Surgery Date(Month/Year) Thyroidectomy
[2025-02-03] MEDS: Lidocaine HCl Viscous 2 % 15 ML SOLUTION MUCOUS MEM (00:20)
[2025-02-03] MEDS: Magnesium Hydrox/Alum Hydrox 30 ML ORAL.SUSP PO (00:20)
[2025-02-03 01:34] VITALS: BP 127/66; PULSE 80; RESP 12; TEMP 36.6; O2SAT 99
[2025-02-03 02:28] VITALS: BP 127/66; PULSE 80; RESP 12; TEMP 36.6; O2SAT 99
== END 2025-02-03 02:30 | disposition home or self-care (01) ==
PROVIDERS: Physician Assistant; Emergency Provider Emergency Medicine; PCP Internal Medicine
DX: R07.89 Other chest pain (principal); R06.02 Shortness of breath; Z03.818 Encounter for observation for suspected exposure to other biological agents ruled out; I10 Essential (primary) hypertension; E78.5 Hyperlipidemia, unspecified; K21.9 Gastro-esophageal reflux disease without esophagitis
CPT/HCPCS: 71046; 80048; 80076; 83735; 84484; 85025; 85610; 87637; 87651; 93005; 99283; 99285

== ENCOUNTER → 2025-02-02 18:15 | Outpatient (BNV) | payer MEDICARE, SELFPAY | PROVIDERS: Emergency Provider Emergency Medicine; PCP Internal Medicine; Visit Provider Internal Medicine Cardiovascular Disease | DX: R94.31 Abnormal electrocardiogram [ECG] [EKG] (principal); R07.9 Chest pain, unspecified | CPT/HCPCS: 93010 ==

== ENCOUNTER → 2025-02-02 18:37 | Outpatient (BNV) | payer MEDICARE, SELFPAY | PROVIDERS: PCP Internal Medicine; Visit Provider Radiology Neuroradiology | DX: J98.11 Atelectasis (principal) | CPT/HCPCS: 71046 ==

== ENCOUNTER 2025-02-07 10:40 | Outpatient (AMB) | payer MEDICARE, SELFPAY ==
--- NOTE | 2025-02-07 11:10 | MHC.PC.OV ---
Vital Signs 02/07/25 11:21 Height 5 ft 4 in Weight 126 lb BMI 21.6 BP 128/80 Blood Pressure Location Lt brachial Position Sitting Respiration 17 Pulse 91 Pulse Source Pulse Oximeter Temp 98.2 F Temp Source Oral Pulse Oximetry (%) 97 Oxygen Delivery Method Room Air Intake Visit Reasons: F/u visit Intake Note: Pt is here today for ER follow up visit. Allergies diclofenac (From ARTHROTEC) Allergy (Severe, Verified 02/07/25 11:21) ANXIETY/WEAKNESS/CONFUSION misoprostol (From ARTHROTEC) Allergy (Severe, Verified 02/07/25 11:21) ANXIETY/WEAKNESS/CONFUSION sertraline (SERTRALINE) Allergy (Severe, Verified 02/07/25 11:21) ANXIETY/WEAKNESS/CONFUSION, dizziness tramadol (TRAMADOL) Allergy (Severe, Verified 02/07/25 11:21) ANXIETY/CONFUSION/WEAKNESS prednisone Adverse Reaction (Unknown, Verified 02/07/25 11:21) psychosis Medication List - Last Reconciled 02/07/25 by Milady Miranda MD amlodipine 5 mg PO DAILY atorvastatin 10 mg PO DAILY cholecalciferol (vitamin D3) 25 mcg PO DAILY methocarbamol 1,000 mg (2 x 500 mg) PO QID qkzbxfcqeegd-ugtjwxng-oxzoit 1 tab PO DAILY omeprazole 20 mg PO DAILY ondansetron 4 mg PO Q8H PRN psyllium seed (sugar) (Metamucil (sugar) oral powder) 1 tbsp PO DAILY triamcinolone acetonide 0.1% 1 appl topical DAILY Tobacco use date assessed: 02/07/25 Fall risk assessment: No Falls in past year Last assessed Fall Risk: 02/07/25 Dental Screening Dental Screen Date: 10/03/24 HPI F/u visit HPI Details Pt presents for f/u ER visit 3 days ago for mid chest pain. Patient had negative cardiac work up and has been taking Omeprazole with complete resolution of the chest. Hypertension hyperlipidemia are controlled on current medications. [facility] Medical History (Updated 02/07/25 @ 12:13 by Milady Miranda MD) GERD (gastroesophageal reflux disease) Compression deformity of vertebra Acute right hip pain Status post fall Vitamin D deficiency HTN (hypertension) DJD (degenerative joint disease), lumbar Compression fracture Age related osteoporosis Depression Hyperlipemia Surgical History H/O kyphoplasty History of thyroid surgery History of total hip replacement Family History Father CVD (cardiovascular disease) Heart disease Mother CVD (cardiovascular disease) Heart disease Maternal Grandfather No problems noted. Maternal Grandmother No problems noted. Paternal Grandfather No problems noted. Paternal Grandmother No problems noted. Brother No problems noted. Daughter No problems noted. Son No problems noted. Social History Housing: House Alcohol intake: never Patient Tobacco Use Status: Never used Tobacco e-Cigarette/Vaping Use: Never Used Advance Directives Date on File: 07/08/21 service: No Current occupational status: retired Sexual orientation: Straight/Heterosexual Gender identity: Female Cognitive needs: No Hearing needs: No Vision needs: No Questionnaire PHQ-9 Over the last 2 weeks, how often have you been bothered by any of the following problems? 1. Little interest or pleasure in doing things: more than half the days Source: Developed by Drs. Zurdo Mendiola, Liana Calderón, Juancarlos Osman and colleagues, with an educational leonardo from [employer]. Thrive Questionnaire Date Thrive assessed: 10/29/23 I am a: Patient What is your living situation today?: I have a steady place to live Within the past 12 months, did the food you bought not last and you didn't have the money to get more?: I choose not to answer this question Within the past 12 months, did you worry whether your food would run out before you got money to buy more?: I choose not to answer this question Do you have trouble paying for medicines?: No Do you have trouble getting transportation to medical appointments?: No Do you have trouble paying your heating and electricity bill?: No Do you have trouble taking care of your child, family member or friend?: No Do you have trouble with day-to-day activities such as bathing, preparing meals, shopping, managing finances, etc.?: No Are you interested in more education?: No Currently or been in a relationship where the following occur: I choose not to answer THRIVE Score: 0 QUINTIN-7 AMB Questionnaire QUINTIN-7 Date QUINTIN - 7 assessed: 04/07/24 Source: Developed by DrsOscar Mendiola, Liana Calderón, Juancarlos Osman and colleagues, with an educational leonardo from [employer]. Review of Systems Const All systems reviewed & are unremarkable except as noted in HPI and below ENT Reports no additional complaints Card Reports no additional complaints Resp Reports no additional complaints GI Reports no additional complaints Reports no additional complaints Physical exam (Primary Care) Vital Signs: Last Vital Signs Temp 98.2 F 02/07/25 11:21 Pulse 91 02/07/25 11:21 Resp 17 02/07/25 11:21 BP 128/80 02/07/25 11:21 Pulse Ox 97 02/07/25 11:21 Oxygen Delivery Method Room Air 02/07/25 11:21 BMI result Body Mass Index 21.6 Tobacco/Smoking Status: Tobacco use Status Tobacco use date assessed 02/07/25 02/07/25 11:23 Patient Tobacco Use Status Never used Tobacco 02/07/25 11:23 e-Cigarette/Vaping Use Never Used 02/07/25 11:10 Thrive Assessment: Date of Thrive Assessment Date Thrive assessed 10/29/23 02/07/25 11:10 Currently or been in a relationship where the following occur: I choose not to answer Const General: no acute distress HENMT Throat: Yes posterior oropharynx normal Resp Effort & Inspection: normal respiratory effort Auscultation: clear to auscultation bilaterally Cardio Rhythm: regular rhythm Heart sounds: S1 normal heart sound present and S2 normal heart sound present GI Inspection: Yes normal to inspection Palpation (GI): Soft to palpation Percussion: Yes normal to percussion Auscultation: normal bowel sounds Coding Level of Care Code Est Pt Level 4 (89122) Diagnoses Age related osteoporosis M81.0 HTN (hypertension) I10 Hyperlipemia E78.5 Assessment & Plan Assessment & Plan (1) Age related osteoporosis: Comment: follow-up endocrinology. Hx of Reclast infusion 12/2020, 12/30, 11/2022 Dr. Jolly, DEXA 11/2023, repeat 2 yrs Code(s): M81.0 - Age-related osteoporosis without current pathological fracture Category: Medical Plan: Continue vitamin-D calcium supplement follow-up with endocrinology (2) HTN (hypertension): Code(s): I10 - Essential (primary) hypertension Category: Medical Plan: cont Amlodipine (3) Hyperlipemia: Code(s): E78.5 - Hyperlipidemia, unspecified Category: Medical Plan: cont statin Medications: Discontinued methocarbamol Discontinued Reason: Doctor's Order 1,000 mg (2 x 500 mg) PO QID 20 tabs 0RF
[2025-02-07 11:21] VITALS: BP 128/80; PULSE 91; RESP 17; TEMP 36.8; O2SAT 97; BMI 21.6
--- OUTSIDE RECORDS SUMMARY | 2025-02-07 11:57 | XMS_ITS | Data Portability ---
Author Organization [facility] Pain Managem ent, PAIN OFFICE Address [address] [facility] [address] [place] [address] Care Team Providers Care Sap Security Consultant Name Role Phone MELISSA AVITIA Primary Care Provider [phone] Assessment Encounter Date Assessment Date Assessment LastModified [...] booked for the same. She needs a driver's license examiner on the day of the procedure. tmanikantan [...] booked for the same. She needs a driver's license examiner on the day of the procedure. tmanikantan [...] booked for the same. She needs a driver's license examiner on the day of the procedure. I [...] Pain 1 % topical gel 2024 025 [id number], [address] [place], [place], [id number], 16:18:54 lidocaine 5 % topical patch 2020 021 [id number], [address], [place], [phone], 10:29:08 Patient TargetsNo targets recorded. Patient Instructions Encounter Date Encounter Id Patient Instructions Last Modified By Organization Details Last Modified Time 01/28/2021 [id number] She was advised against bed rest lasting longer than four days and to continue activities as tolerated. [email or web address] Not available 01/28/2021 10:25:51 03/10/2021 [id number] She was advised against bed rest lasting longer than four days and to continue activities as tolerated. [email or web address] Not available 03/10/2021 15:12:58 07/13/2024 [id number] She was advised against bed rest lasting longer than four days and to continue activities as tolerated. [email or web address] Not available 07/13/2024 13:44:23 07/18/2024 [id number] She was advised against bed rest lasting longer than four days and to continue activities as tolerated. [email or web address] Not available 07/20/2024 09:24:41 08/23/2024 [id number] She was advised against bed rest lasting longer than four days and to continue activities as tolerated. [email or web address] Not available 08/23/2024 16:14:35 Reason for Referral None Reported. Problems Name Problem SNOMED Code Status Onset Date Resolution Date Notes Provider Name and Address Organization Details Recorded Time Spinal stenosis of lumbar region 64123152 Active Pablo goldsmith MD [address] , [address], [place], [address], [place] [facility] 09:54:00 Degeneration of lumbar intervertebral disc 83316540 Active Pablo goldsmith MD [address] , [address], [place], [address], [place] [facility] 11:47:58 Compression fracture of lumbar spine 593094737 Active Pablo goldsmith MD [address] , [address], [place], [address], [place] [facility] 11:48:13 Lumbosacral spondylosis without myelopathy 38567984 Active Pablo goldsmith MD [address] , [address], [place], [address], [place] [facility] 11:48:26 Lumbar radiculopathy 365533131 Active 2024 Pablo goldsmith MD [address] , [address], [facility] [place], [address], [place] [facility] 09:54:03 Problem Notes None recorded. Procedures Surgical History Date Name Laterality Status Provider Name and Address Organization Details Recorded Time 07/19/19 25 Lumbar Epidural steroid injection under fluoroscopic guidance completed Pablo Hoffman MD [address] , [address], [place], [address], [place] [facility] 07/20/2024 09:50:29 01/29/20 21 Lumbar Epidural steroid injection under fluoroscopic guidance completed Pablo Hoffman MD [address] , [address], [place], [address], [place] [facility] 01/28/2021 10:26:51 07/17/19 21 Lumbar Epidural steroid injection under fluoroscopic guidance completed Pablo Hoffman MD [address] , [address], [place], [address], [place] [facility] 07/16/2020 10:54:35 04/25/19 21 Lumbar Epidural steroid injection under fluoroscopic guidance completed Pablo Hoffman MD [address] , [address], [place], [address], [place] [facility] 04/24/2020 16:07:20 11/14/19 20 Lumbar Epidural steroid injection under fluoroscopic guidance completed Pablo Hoffman MD [address] , [address], [place], [address], [place] [facility] 11/14/2019 11:07:40 08/15/19 20 Lumbar Epidural steroid injection under fluoroscopic guidance completed Pablo Hoffman MD [address] , [address], [place], [address], [place] [facility] 08/15/2019 13:57:27 04/26/19 20 Lumbar Epidural steroid injection under fluoroscopic guidance completed Pablo Hoffman MD [address] , [address], [place], [address], [place] [facility] 04/27/2019 10:57:23 12/21/19 19 Lumbar Epidural steroid injection under fluoroscopic guidance completed Pablo Hoffman MD [address] , [address], [place], [address], [place] [facility] 12/23/2018 12:44:19 07/17/20 19 Lumbar Epidural steroid injection under fluoroscopic guidance completed Pablo Hoffman MD [address] [facility] , [address], [place], [address], [place] [facility] 08/25/2018 11:41:39 [...] Name and Address Organization Details Recorded Time 07052 tramadol medicatio n dizziness Not available Not available 08/18/2018 18646 RxNorm Rita ruby [place] [facility] 5 14:01:06 40991 sertralin e medicatio n Not available Not available Not available 08/18/2018 51991 RxNorm Rita ruby [place] [facility] 5 14:00:55 12209 [employer] medicatio n Not available Not available [...] cm 84 /min 98 % 23.8 kg/m2 11986.0 1 g 6 161/83 mm[Hg] Pablo goldsmith MD [address] [facility] , [address], [place], [address], [place] - [facility] 2 14:30:24 Date Recorded Heart rate Oxygen saturation Pain severity - 0-10 verbal numeric rating [Score] - Reported Systolic And Diastolic Provider Name and Address Organization Details Last Updated DateTime 07/13/2024 88 /min 96 % 7 174/90 mm[Hg] Sophie James [place] - [facility] 5 09:53:26 Date Recorded Heart rate Oxygen saturation Systolic And Diastolic Provider Name and Address Organization Details Last Updated DateTime 07/18/2024 79 /min 95 % 167/76 mm[Hg] Rita Paz [place] [facility] 07/18/2024 13:59:32 Date Recorded Heart rate Oxygen saturation Pain severity - 0-10 verbal numeric rating [Score] - Reported Systolic And Diastolic Provider Name and Address Organization Details Last Updated DateTime 08/23/2024 82 /min 97 % 6 142/73 mm[Hg] Ama ramirez [place] [facility] 08/23/2024 15:20:39 Date Recorded Body height Heart rate Oxygen saturation Systolic And Diastolic Provider Name and Address Organization Details Last Updated DateTime 01/28/2021 157.48 cm 90 /min 98 % 188/92 mm[Hg] Myrna Blevins [place] [facility] 01/28/2021 09:59:11 Social History Question Answer Notes LastModified by Organizat ion Details LastModified Time Tobacco Smoking Status Never Smoker Not Available [facility] 11/24/2019 03:16:11 Which Illicit Or Recreational Drugs Have You Used? No [id number] Information not available 11/24/2019 Education Post Graduate Information not available 08/18/2018 What Was The Date Of Your Most Recent Tobacco Screening? 08/25/2018 [id number] Information not available 11/24/2019 Sex: Unknown Functional Status Question Answer Note LastModified by Organizat ion Details LastModified Time What is your level of alcohol consumption? None [id number] Information not available 11/24/2019 Are you currently employed? 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 Family History Relationship Description Onset Age of this Age Resolved Age Notes LastModified by Organization Details LastModified Time Father No current problems or disability [email or web address] Not available 08/18 10:58:23 Mother No current problems or disability [facility]6 Not available 08/18 10:58:23 Medical History Condition Response Arthritis Y Hypothyroidism Osteoporosis Y Gynecological HistoryNo gynecological history recorded. Obstetrics History GPAL:G 0 P 0 0 0 0 Past Encounters Encounter ID Performer Location Encounter Start Date Encounter Closed Date Diagnosis/Indication Diagnosis SNOMED-CT Code Diagnosis ICD10 Code Diagnosis IMO Codes Diagnosis Note [id number] Pablo Hoffman MD PAIN OFFICE [address] [place] [address] 08/18/2018 10:15:01 08/18/2018 13:44:22 Spinal stenosis of lumbar region 40579422 M48.061 Degenerati on of lumbar intervertebral disc 81701182 M51.36 Compressio n fracture of lumbar spine 355259785 M48.56XA Lumbosacra l spondylosis without myelopathy 21443953 M47.817 [id number] Pablo Hoffman MD PAIN OFFICE [address] [place] [address] 08/24/2018 10:51:53 08/25/2018 14:18:09 Spinal stenosis of lumbar region 34053537 M48.061 Degenerati on of lumbar intervertebral disc 69453975 M51.36 Compressio n fracture of lumbar spine 106871034 M48.56XA Lumbosacra l spondylosis without myelopathy 27690204 M47.817 [id number] Pablo Hoffman MD [facility] PAIN OFFICE [address] [place] [address] 09/15/2018 10:59:59 09/15/2018 11:46:53 Spinal stenosis of lumbar region 67931971 M48.061 Degenerati on of lumbar intervertebral disc 21152485 M51.36 Compressio n fracture of lumbar spine 206846449 M48.56XA Lumbosacra l spondylosis without myelopathy 97473946 M47.817 [id number] Pablo Hoffman MD PAIN OFFICE [address] [place] [address] 12/20/2018 15:10:51 12/23/2018 12:46:34 Spinal stenosis of lumbar region 07831315 M48.061 Degenerati on of lumbar intervertebral disc 02891429 M51.36 Compressio n fracture of lumbar spine 553146746 M48.56XA Lumbosacra l spondylosis without myelopathy 04528033 M47.817 [id number] Pablo Hoffman MD PAIN OFFICE [address] [place] [address] 04/21/2019 09:44:53 04/21/2019 11:56:43 Spinal stenosis of lumbar region 10921563 M48.061 Degenerati on of lumbar intervertebral disc 19123586 M51.36 Compressio n fracture of lumbar spine 044792375 M48.56XA Lumbosacra l spondylosis without myelopathy 79551453 M47.817 [id number] Pablo Hoffman MD PAIN OFFICE [address] [place] [address] 04/26/2019 10:45:05 04/27/2019 11:00:35 Spinal stenosis of lumbar region 66404627 M48.061 Degenerati on of lumbar intervertebral disc 41007654 M51.36 Compressio n fracture of lumbar spine 659955986 M48.56XA Lumbosacra l spondylosis without myelopathy 95623531 M47.817 [id number] Pablo Hoffman MD PAIN OFFICE [address] [facility] [place] [address] 08/15/2019 13:07:46 08/15/2019 14:00:49 Spinal stenosis of lumbar region 09382889 M48.061 Degenerati on of lumbar intervertebral disc 08297598 M51.36 Compressio n fracture of lumbar spine 832344260 M48.56XA Lumbosacra l spondylosis without myelopathy 97463832 M47.817 [id number] Pablo Hoffman MD PAIN OFFICE [address] [facility] [place] [address] 11/14/2019 10:35:26 11/14/2019 16:11:23 Spinal stenosis of lumbar region 35395065 M48.061 Degenerati on of lumbar intervertebral disc 66190160 M51.36 Compressio n fracture of lumbar spine 166162693 M48.56XA Lumbosacra l spondylosis without myelopathy 55061840 M47.817 [id number] Pablo Hoffman MD PAIN OFFICE [address] [facility] [place] [address] 04/24/2020 11:24:53 04/24/2020 16:10:10 Spinal stenosis of lumbar region 31412846 M48.061 Degenerati on of lumbar intervertebral disc 56739107 M51.36 Compressio n fracture of lumbar spine 033290254 M48.56XA Lumbosacra l spondylosis without myelopathy 82670879 M47.817 [id number] Pablo Hoffman MD PAIN OFFICE [address] [facility] [place] [address] 07/16/2020 10:23:01 07/16/2020 11:24:41 Spinal stenosis of lumbar region 89926245 M48.061 Degenerati on of lumbar intervertebral disc 87974285 M51.36 Compressio n fracture of lumbar spine 257666960 M48.56XA Lumbosacra l spondylosis without myelopathy 95657411 M47.817 [id number] Pablo Hoffman MD PAIN OFFICE [address] [facility] [place] [address] 09/05/2020 09:17:16 09/05/2020 11:27:59 Compression fracture of thoracic vertebra 7715492951 104 M48.54XA [id number] Pablo Hoffman MD [facility] PAIN OFFICE [address] [facility] [place] [address] 11/27/2020 10:46:23 11/27/2020 16:00:06 Compression fracture of thoracic vertebra 6640193172 104 M48.54XA Thoracic back pain 20698 8004 M54.6 [id number] Pablo Hoffman MD PAIN OFFICE [address] [facility] [place] [address] 01/09/2021 14:15:10 01/20/2021 10:34:58 Spinal stenosis of lumbar region 57309973 M48.061 Degenerati on of lumbar intervertebral disc 54588513 M51.36 Compressio n fracture of lumbar spine 045341648 M48.56XA Lumbosacra l spondylosis without myelopathy 32746844 M47.817 [id number] Pablo Hoffman MD PAIN OFFICE [address] [place] [address] 01/28/2021 09:46:18 01/28/2021 13:34:05 Spinal stenosis of lumbar region 73356678 M48.061 Degenerati on of lumbar intervertebral disc 10438769 M51.36 Compressio n fracture of lumbar spine 111664393 M48.56XA Lumbosacra l spondylosis without myelopathy 34727784 M47.817 [id number] Pablo Hoffman MD [facility] PAIN OFFICE [address] [place] [address] 03/10/2021 14:21:44 03/10/2021 15:29:40 Spinal stenosis of lumbar region 83681793 M48.061 Degenerati on of lumbar intervertebral disc 90285382 M51.36 Compressio n fracture of lumbar spine 217179483 M48.56XA Lumbosacra l spondylosis without myelopathy 36773516 M47.817 [id number] Pablo Hoffman MD PAIN OFFICE [address] [facility] [place] [address] 07/13/2024 09:30:04 07/13/2024 14:21:36 Degeneration of lumbar intervertebral disc 02482926 M51.362 4454507599 Spinal ana m nosis of lumbar region 92028837 M48.061 Compressio n fracture of lumbar spine 421379458 M48.56XA Lumbosacra l spondylosis without myelopathy 96267707 M47.817 [id number] Pablo Hoffman MD [facility] PAIN OFFICE [address] [facility] [place] [address] 07/18/2024 13:42:25 07/20/2024 10:27:20 Degeneration of lumbar intervertebral disc 18598242 M51.362 2828000411 Spinal ana m nosis of lumbar region 74571709 M48.061 M48.062 083384 Compressio n fracture of lumbar spine 743626960 M48.56XA Lumbosacra l spondylosis without myelopathy 75849862 M47.817 Lumbar radiculopathy 128 042736 M54.16 49746 30803 Pablo Hoffman MD PAIN OFFICE [address] [facility] [place] [address] 08/23/2024 14:45:01 08/23/2024 16:20:29 Lumbar radiculopathy 211623347 M54.16 17635 Spinal ana m nosis of lumbar region 43960269 M48.062 079528 Degenerati on of lumbar intervertebral disc 88928394 M51.362 Compressio n fracture of lumbar spine 326749601 M48.56XA Lumbosacra l spondylosis without myelopathy 99790807 M47.817 Health Concerns Section Related Observation LastModified by Organization Detai ls LastModified Time None Recorded Concern Status LastModified by Organization Details LastModified Time None Recorded Advance Directives Directive None Recorded Payers Insurance Date Sequence Insurance Name Policy Number Policy Wyman Covered Member ID Wyman Member ID Guarantor Name 08/20/2024 2 [place] [id number] Sabrina Valdez [id number] Sabrina Valdez 08/20/2024 1 MED[place] B-[place] [facility] [employer] Sabrina Valdez [id number] Sabrina Carcamoliam Notes Date Note Type Note Provider Name and Address Organization Details Recorded Time 01/28/2021 text/html She is here for a repeat lumbar epidural steroid injection under fluoroscopic guidance. Pablo Hoffman MD [address] [facility] , [address], [place], [address], [place] [facility] 01/28/2021 13:57:16 [...] or bowel incontinence. Pablo Hoffman MD [address] [facility] , [address], [place], [address], [place] [facility] 03/10/2021 15:38:53 07/13/2024 text/html She is here for a follow up. She was last seen on 03/10/2021. She states her daughter has moved to [facility] to help her daughter. She lives alone [...] severe pain. She had physical therapy at [facility] and was in severe pain . She had high blood pressure and had an anxiety attack and had to go to the ER. She states she wants another steroid injection. She feels the last injection helped.She has seen the rn navigator and had injections for her osteoporosis. Pablo Hoffman MD [address] [facility] , [address], [place], [address], [place] [facility] 07/13/2024 15:00:22 07/18/2024 text/html She is here for a lumbar epidural steroid injection under fluoroscopic guidance. Pablo Hoffman MD [address] [facility] , [address], [place], [address], [facility] - Pain Management 07/20/2024 10:31:07 08/23/2024 text/html She is here for a follow up. She had a lumbar epidural steroid injection under fluoroscopic guidance on 07/18/2024. She reports good ongoing pain benefit. She is complaining of mid back pain. She states she is lonely and pain is greater when she is alone. She states her daughter has moved to [facility] to help her daughter. She lives alone [...] severe pain. She had physical therapy at [facility] and was in severe pain . She had high blood pressure and had an anxiety attack and had to go to the ER. She states she wants another steroid injection. She feels the last injection helped.She has seen the rn navigator and had injections for her osteoporosis. Pablo Hoffman MD [address] [facility] , [address], [place], [address], [facility] - Pain Management 08/24/2024 08:52:43 OBGyn Episode No OBEpisode recorded.
--- OUTSIDE RECORDS SUMMARY | 2025-02-07 11:57 | XMS_ITS | Encounter Summary ---
Author Organization [facility] Address [address] [place] [address] [place] [address] Phone Care Team Providers Care Vegetable Tester Name Role Phone Milady Miranda MD Primary Care Provider [phone] Encounter Details Date Type Department Care Team (Late st Contact Info) Description 12/27/2023 Ancillary Orders [address] [address] System, Provider Not In, PhD [address] [address] Social History Tobacco Use Types Packs/Day Years [...] Description 12/28/2025 10:40 AM EST Office Visit [facility] [address] [place] [address] Eloisa Jolly MD [address] [place] [address] [email or web address] documented as of this encounter Results * [...] on filedocumented in this encounter Care Teams Vegetable Tester Relationship Specialty Start Date End Date Milady Miranda MD [facility] [place] [address] PCP - General Internal Medicine 06/15/22 documented as of this encounter Additional Source Comments The information contained in this document represents components of the legal health record. It is not the complete legal health record.[facility]
--- OUTSIDE RECORDS SUMMARY | 2025-02-07 11:57 | XMS_ITS | Patient Health Record ---
Author Organization [facility] Address [address] [place] [address] Care Team Providers Care In House Cra Name Role Phone Ashely DIOP, Fred Primary Care Provider Zurdo Vallejo Unavailable [phone] Сергей DIOP, Harris Unavailable Unavailable Allergies Allergen [...] years old with Alzheimers--recemtly placed in a alf 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 Section Notes: Nonsmoker; no sig alcohol Nonsmoker; no sig alcohol Problems Problem Type SNOMED Code ICD Code Onset Dates Problem Status W/U Status Risk Notes Problem Esophageal reflux (813940681) Esophageal reflux (530.81) Active confirmed Problem Cough (68028779) Cough (786.2) Active confirmed Plan Of Treatment No Information Insurance Providers Payer Name Payer Address Payer Phone Subscriber Number Group Number Insured Name Patient Relationship to Insured Coverage Start Date Coverage End Date MEDICARE OF [place] [address] [place] [address] [id number] THEAMARU DOUGLAS Self - patient is the insured MEDEX ATTN CLAIMS [address] [place] [phone] [id number] MARU DE LEON Self - patient is the insured Medical (General) History Medical History History ICD Code Screening Colonos copy with only a hyperplastic polyp, internal hemorrhoids, diverticulosis Hyperlipidemia Depression/anxiety EGD in 2004 with only gastritis-neg. H.p ylori Back problems due to disc problems Denies UT,DM,CVA,Lung disease,renal dise ase Surgical History Surgery Date(Month/Year) Thyroidectomy
--- OUTSIDE RECORDS SUMMARY | 2025-02-07 11:57 | XMS_ITS | Patient Health Record ---
Author Organization [facility] Address [address] [place] [address] Care Team Providers Care Renovator Machine Operator Name Role Phone MELISSA AVITIA MD Primary Care Provider FRANCES Barney Unavailable KARLSRUHE, NURSING Unavailable [phone] Allergies Allergen (clinical drug ingredient) Drug/Non Drug [...] Status W/U Status Risk Notes Problem Osteoporosis (35452360) Osteoporosis (M81.0) Active confirmed Problem Recurrent major depression (76830836) Episode of recurrent major depressive disorder, unspecified depression episode severity (F33.9) Active confirmed Encounters Encounter Location Date Provider Diagnosis [facility] [address] [place] [address] 04/14/2024 [facility] Plan Of Treatment Future Test Test Name Order Date Stress Echocardiogram 07/19/2019 XR SPINE THOACOLUMBAR 3 VIEWS 07/19/2019 BASIC METABOLIC PANEL 01/05/2022 Insurance Providers Payer Name Payer Address Payer Phone Subscriber Number Group Number Insured Name Patient Relationship to Insured Coverage Start Date Coverage End Date MEDICARE Actions [employer] [address] [facility] [place] [address] [id number] MARU DE LEON Self - patient is the insured [employer] [facility] [place] [address] [place] [address] [id number] MARU DE LEON Self - patient is [...] 1987 Hospitalization History Reason Date(Month/Year) ER in [place]- Fall, 2nd spinal compre ssion fracture 01/2019 for above
--- OUTSIDE RECORDS SUMMARY | 2025-02-07 11:57 | XMS_ITS | Clinical Summary ---
Author Organization [facility] Prior to 07/08/[address] [place] [address] Care Team Providers Care Recreation Technician Name Role Phone Milady Miranda MD Primary Care Provider [phone] Medications Medication Sig Dispensed Refills Start Date [...] age to complete this topic Care Teams Recreation Technician Relationship Specialty Start Date End Date Milady Miranda MD [address] [facility] [place] [address] PCP - General Rn Complex Care 01/06/22
--- OUTSIDE RECORDS SUMMARY | 2025-02-07 11:57 | XMS_ITS | Encounter Summary ---
Author Organization [facility] Address [address] [place] [address] [place] [address] Phone Care Team Providers Care Network Support Engineer Name Role Phone Milady Miranda MD Primary Care Provider [phone] Encounter Details Date Type Department Care Team (Late st Contact Info) Description 12/27/2023 Ancillary Orders [address] [address] System, Provider Not In, PhD [address] [address] Social History Tobacco Use Types Packs/Day Years [...] Description 12/28/2025 10:40 AM EST Office Visit [facility] End[facility]inology Clinic [address] [place] [address] Eloisa Jolly MD [address] [place] [id number] [email or web address] documented as of this encounter [...] on filedocumented in this encounter Care Teams Network Support Engineer Relationship Specialty Start Date End Date Milady Miranda MD [facility] [place] [address] PCP - General Internal Medicine 06/15/22 documented as of this encounter Additional Source Comments The information contained in this document represents components of the legal health record. It is not the complete legal health record.[facility]
--- OUTSIDE RECORDS SUMMARY | 2025-02-07 11:57 | XMS_ITS | Data Portability ---
Author Organization [facility], Main Office Address [address] [facility] [place] [address] Care Team Providers Care Mold Stacker Name Role Phone KRANTHI SY - 3RD FLOOR OTHER MELISSA AVITIA Primary Care Provider [phone] Assessment No assessment recorded. Plan of Treatment [...] Time Osteoporoti c fracture of sacral vertebra [id number] 9106 Active 2021 Denita ruby, [facility] 2 13:52:01 Depressive disorder 56261706 Active 2021 Denita ruby, [facility] 2 13:52:42 Mixed hyperlipide abdi 310412745 Active 2021 Denita Corrigan null, [facility] 2 13:52:43 Essential hypertensio n 88991879 Active 2021 Denita ruby, [facility] 2 13:52:52 Low back pain 269823190 Active 2021 Denita ruby, [facility] 2 14:23:30 Spinal stenosis of lumbar region 56940470 Active 2021 Selina Palm MD [address] [facility], [address], [place], [address] [place] [address] 2 12:15:00 Problem Notes None recorded. Medical Equipment None Reported. Allergies Allergen ID Allergen Name Allergen Category Reaction Reaction Severity Criticality Documentation Date Start Date Code Code System Note Provider Name and Address Organization Details Recorded Time 14917 diclofena c Not available Not available Not available Not available 07/09/2021 3355 RxNorm Denita Corrigan null, [facility] 2 13:43:59 27540 misoprost ol medicatio n Not available Not available Not available 07/09/2021 51141 RxNorm Denita Ronco null, [facility] 2 13:44:08 59573 sertralin e medicatio n Not available Not available Not available 07/09/2021 49479 RxNorm Denita Meenu null, [facility] 2 13:44:17 73947 tramadol medicatio n Not available Not available Not available 07/09/2021 79442 RxNorm Denita Corrigan [facility], [facility] 2 13:44:23 79610 prednison e medicatio n Not available Not available Not available 07/09/2021 8640 RxNorm Denita Meenu [facility], [facility] 2 13:44:30 94975 oxycodone medicatio n Not available Not available Not available 07/11/2021 7804 RxNorm CRISTOFER CASTAÑEDA, [employer] [address] [facility], [address], [place], [address], [facility] [employer] [facility] 2 15:02:32 Vitals Date Recorded Heart rate Oxygen saturation Systolic And Diastolic Provider Name and Address Organization Details Last Updated DateTime 07/09/2021 67 /min 96 % 146/56 mm[Hg] Denita Corrigan [facility] 07/09/2021 13:49:33 Date Recorded Heart rate Respiratory rate Body temperature Oxygen saturation Systolic And Diastolic Provider Name and Address Organization Details Last Updated DateTime 2 84 /min 20 /min 97.4 [degF] 98 % 159/86 mm[Hg] CRISTOFER CASTAÑEDA [employer] [address] , [address], [place], [address], [employer] 2 15:23:14 Date Recorded Body temperature Oxygen saturation Provider Name and Address Organization Details Last Updated DateTime 07/14/2021 97.7 [degF] 97 % VINCENT RAYGOZA [address] [facility], [address], [place], [address], [employer] 07/14/2021 15:06:49 Date Recorded Heart rate Respiratory rate Body temperature Oxygen saturation Body height Body mass index (BMI) Body weight Systolic And Diastolic Provider Name and Address Organization Details Last Updated DateTime 2 86 /min 18 /min 97.7 [degF] 99 % 154.94 cm 24.6 kg/m2 29485.0 1 g 126/76 mm[Hg] Selina Palm MD [address] [facility], [address], [place], [address], [employer] 2 11:30:47 Social History Question Answer Notes LastModified by [employer] Details LastModified Time Tobacco Smoking Status Never Smoker Denita ruby, [facility] [employer] 07/09/2021 14:19:46 Do You Have An Advance Directive? Yes Information not available 07/09/2021 What Is Your Code Status? DNR/DNI Information not available 07/09/2021 Where Do You Live? [facility] Lives Only On 1st Floor. Information not available 07/15/2021 Legal Guardian? No Informati on not available 07/15/2021 Do You Have A Medical Power Of Laryngologist? Yes Information not available 07/15/2021 What Was [...] Functional Status Question Answer Note LastModified by [employer] Details LastModified Time Do you use any [...] 0.5 mL, PF 3 completed Aimeeeulalia [facility] 06/03/2023 11:20:13 Pneumococcal conjugate PCV 13 0 completed Aimee [facility] 06/03/2023 11:20:26 Influenza, adjuvanted, quadrivalent, PF 2 completed Aimeeeulalia [facility] 06/03/2023 11:20:45 Influenza, adjuvanted, quadrivalent, PF 3 completed Aimeeeulalia [facility] 06/03/2023 11:20:55 COVID-19, mRNA, LNP-S, bivalent, PF, 30 mcg/0.3 mL dose 1 completed Aimeeeulalia [facility] 06/03/2023 11:21:16 COVID-19, mRNA, LNP-S, bivalent, PF, 30 mcg/0.3 mL dose 1 completed Aimee [facility] 06/03/2023 11:21:21 COVID-19, mRNA, LNP-S, bivalent, PF, 30 mcg/0.3 mL dose 1 completed Aimeeeulalia [facility] 06/03/2023 11:21:28 COVID-19, mRNA, LNP-S, bivalent, PF, 30 mcg/0.3 mL dose 2 completed Aimee [facility] 06/03/2023 11:21:41 COVID-19, mRNA, LNP-S, PF, tin-sucrose, 30 mcg/0.3 mL 3 completed Aimee ruby, [facility] 06/03/2023 11:21:52 zoster live 5 completed Aimee ruby [facility] 06/03/2023 11:22:25 Past Encounters Encounter ID Performer Location Encounter Start Date Encounter Closed Date Diagnosis/Indication Diagnosis SNOMED-CT Code Diagnosis ICD10 Code Diagnosis IMO Codes Diagnosis Note [id number] VINCENT Lucia [address] [address] 07/09/2021 13:40:50 07/11/2021 14:41:11 Osteoporotic fracture of sacral vertebra 9911647239 0554643 M80.08XA Pain control with Tylenol, Salonpas patchPT OT eval and treatMonit or Essential hypertension 69813921 I10 Norvasc 5 mg dailyMonit or bp Mixed hyperlipidemia 267 689011 E78.2 Atorvastat in 10 mg daily Depressive disorder 3548 9007 F32.A Sertraline 5 mg dailyMonit or moodPsych eval prn Low back pain 242153419 M54.59 No narcotic pain medication -patient reacts poorly to thisConsid er pain management referral if pain not improvingC ontinue tylenolMon itor Recurrent falls 00050042 2 R29.6 PT OT eval and treat [id number] VINCENT RAYGOZAare [address] [address] 07/11/2021 15:02:45 07/14/2021 15:37:35 Low back pain 241577360 M54.59 tylenol arthritis 2 tabs q 8 hrs ibuprofen 600 mg q 6 hrs prn salon pas to back qd discussed neurontin with pt and she wants to try as she is having nerve pain-noted as where she points to her pain neurontin 100 mg tid will be added dc of oxycodone as she notes she falls with it-added as allergy monitor pain [id number] VINCENT RAYGOZA [facility] [address] [address] 07/14/2021 09:04:11 07/16/2021 15:13:28 Low back pain 551905148 M54.59 tylenol arthritis 2 tabs q 8 hrs prn ibuprofen 600 mg q 6 hrs prn salon pas to back qd neurontin 100 mg tid was added Wednesday and she hasn't been taking as she notes bad reaction unclear what reaction was if any but will discontinu e regardless monitor pain-noted relief with prn medication s [id number] Selina Palm MD [address] [place] [address] 07/15/2021 11:20:07 07/17/2021 08:19:40 Osteoporotic fracture of sacral vertebra 0527596078 4947993 M80.08XA As above.Cont inue vitamin D 1000 IU qd and MVI qd for osteoporos is. Essential hypertension 51481148 I10 Good control on amlodipine 5 mg qdMonitor BP and labs as outpt. Mixed hyperlipidemia 267 958925 E78.2 Continue atorvastat in 10 mg qd.F/U as outpt. Depressive disorder 3548 9007 F33.0 Continue sertraline 5 mg qd.Monitor moodF/U as outpt. Recurrent falls 06813704 2 R29.6 Will continue PT/OT as outpt.Cont inue fall precaution s. Spinal ana m nosis of lumbar region 03483676 M48.062 I suspect this is the primary [...] ID Guarantor Name 07/11/2021 1 [place] [employer] Sabrina Valdez [id number] Sabrina Valdez 07/16/2021 2 [place] [id number] Sabrina Courtney [id number] Sabrina Courtney 08/01/2021 2 [place] [id number] Sabrina Courtney [id number] Sabrina Courtney Notes Date Note Type [...] for continued care and therapy. Denita ruby, [employer] 07/09/2021 14:24:18 07/11/2021 text/html A 86 year [...] to see if improvement. VINCENT RAYGOZA [address] [facility], [address], [place], [address], [employer] 07/11/2021 15:25:10 07/14/2021 text/html A 86 year [...] and it was discontinued. VINCENT RAYGOZA [address] [facility], [address], [place], [address], [employer] 07/14/2021 15:10:41 07/15/2021 text/html This is an [...] have been set up, more extensive than HAND FUNNEL COATER which should help also. She says that pain is 6-7, but had been 9-10 before. She says pain starts in left sacroiliac area and goes down lateral left leg to calf. No weakness.Her PMH includes HTN, spinal stenosis, multiple compression fxs-s/p kyphoplasty on several, depression, HLD, osteoporosis, OA, and s/p right THR. Selina Palm MD [address] [facility], [address], [place], [address], [facility] - [facility] 07/15/2021 12:19:43 OBGyn Episode No OBEpisode recorded.
--- OUTSIDE RECORDS SUMMARY | 2025-02-07 11:57 | XMS_ITS | Encounter Summary ---
Author Organization [facility] Address [address] [place] [address] [place] [address] Phone Care Team Providers Care Orthotics Technician Name Role Phone Milady Miranda MD Primary Care Provider [phone] Encounter Details Date Type Department Care Team (Late st Contact Info) Description 12/27/2023 Ancillary Orders [address] [address] System, Provider Not In, PhD [address] [address] Social History Tobacco Use Types Packs/Day Years [...] Description 12/28/2025 10:40 AM EST Office Visit [facility] Endocrinology Clinic [address] [place] [address] Eloisa Jolly MD [address] [place] [address] [email or web address] documented as of this encounter [...] on filedocumented in this encounter Care Teams Orthotics Technician Relationship Specialty Start Date End Date Milady Miranda MD [facility] [place] [address] PCP - General Internal Medicine 06/15/22 documented as of this encounter Additional Source Comments The information contained in this document represents components of the legal health record. It is not the complete legal health record.[facility]
--- OUTSIDE RECORDS SUMMARY | 2025-02-07 11:57 | XMS_ITS | Clinical Summary ---
Author Organization [facility] Address [address] [place] [address] Phone Care Team Providers Care Gi Asst Name Role Phone Milady Miranda MD Primary Care Provider [phone] Allergies Active Allergy Reactions Criticality Noted Date [...] today. Will call again for records from [facility]. Will obtain/review actual images of bone density [...] hearing @ results. Will obtain records from [facility] & report of bone density from [facility]. Tentative plan will be to continue to observe w/o further pharmacologic rx, pending review of records/bone density. Spinal stenosis of lumbar region 07/15/2021 Essential hypertension 07/09/2021 On statin therapy 04/05/2017 Current use of aspirin 04/05/2017 Hyperlipidemia 01/13/2017 Right hip pain 01/13/2017 Primary osteoarthritis involving multiple joints 01/13/2017 intermediate current use of non -steroidal anti-inflammatories (NSAID) 01/13/2017 Encounters Date Type Department Care Team Description 12/28/2024 10:00 AM EST Office Visit [facility] Endocrinology [facility] [address] [place] [address] Eloisa Jolly MD Age-related osteoporosis without current pathological fracture (Primary Dx) 12/28/2024 Telephone [facility] Endocrinology [facility] [address] [place] [address] Eloisa Jolly MD Labs & Bone Density [...] Description 12/28/2025 10:40 AM EST Office Visit [facility] Endocrinology Clinic [address] [place] [address] Eloisa Jolly MD [address] [place] [address] [email or web address] Health Maintenance Due Date Last Done Comments [...] Metabolic Panel (CMP) (12/29/2024 9:33 AM EST) [facility] Sodium 142 136 - 145 mmol/L 12/29/2024 6:16 PM [facility] Potassium 4.2 3.4 - 5.1 mmol/L 12/29/2024 6:16 PM [facility] Chloride 106 98 - 107 mmol/L 12/29/2024 6:16 PM [facility] CO2 25 20 - 31 mmol/L 12/29/2024 6:16 PM [facility] Anion Gap 11 3 - 17 mmol/L 12/29/2024 6:16 PM [facility] BUN 15 6 - 23 mg/dL 12/29/2024 6:16 PM [facility] Creatinine 0.70 0.50 - 1.00 mg/dL 12/29/2024 6:16 PM [facility] eGFR 83 >59 mL/min/1.7 3m2 12/29/2024 6:16 PM [facility] Comment:Estimated glomerular filtration rate calculated using the CKD-EPI refit equation. Glucose 94 70 - 99 mg/dL 12/29/2024 6:16 PM [facility] Calcium 8.9 8.5 - 10.5 mg/dL 12/29/2024 6:16 PM [facility] AST 23 <33 U/L 12/29/2024 6:16 PM [facility] ALT 14 <34 U/L 12/29/2024 6:16 PM [facility] Alkaline Phosphatase 65 40 - 130 U/L 12/29/2024 6:16 PM [facility] Bilirubin, Total 0.8 0.0 - 1.2 mg/dL 12/29/2024 6:16 PM [facility] Total Protein 6.9 6.4 - 8.3 g/dL 12/29/2024 6:16 PM EST [facility] Albumin 4.2 3.5 - 5.2 g/dL 12/29/2024 6:16 PM EST [facility] Globulin 2.7 1.9 - 4.1 g/dL 12/29/2024 6:16 PM EST [facility] Blood (Blood) Venipuncture / Unknown 12/29/2024 9:33 AM EST 12/29/2024 9:34 AM EST Eloisa Jolly MD LAB BLOOD BKR ORDERABL ES Final Result Performing Organization Address City/[facility]/ZIP Co de Phone Number [address] [address] * Beta-CrossLaps (B-Ctx) (12/29/2024 9:33 AM EST) Beta-CrossLaps (B-CTx), S 171 pg/mL 01/01/2025 2:32 PM EST [facility] Comment: REFERENCE VALUE [phone] (18-29 y) [...] BKR ORDERABL ES Final Result ONEYDA MON) [facility] [address] [place], [place] [address] [place] [address] * (ABNORMAL) 25-OH Vitamin D (12/29/2024 9:33 AM EST) Pathologist [facility] 25-OH Vitamin D, Total 84(H) 20 - 50 ng/mL 12/29/2024 6:50 PM EST [facility] Comment: Severe deficiency: <10 ng/mL Mild to moderate deficiency: 10-19 ng/mL Optimum levels: 20-50 ng/mL Increased risk of hypercalciuria: 51-80 ng/mL Possible toxicity: >80 ng/mL Blood (Blood) Venipuncture / Unknown 12/29/2024 9:33 AM EST 12/29/2024 9:34 AM EST us Eloisa Jolly MD LAB BLOOD BKR ORDERABL ES Final Result Performing Organization Address [facility]/ZIP Co de Phone Number [address] [address] * Phosphorus (12/29/2024 9:33 AM EST) Pathologist [facility] Phosphorus 3.3 2.5 - 4.5 mg/dL 12/29/2024 6:16 PM EST [facility] Blood (Blood) Venipuncture / Unknown 12/29/2024 9:33 AM EST 12/29/2024 9:34 AM EST Eloisa Jolly MD LAB BLOOD BKR ORDERABL ES Final Result [address] [address] * Parathyroid Hormone (PTH) (12/29/2024 9:33 AM EST) Pathologist [facility] Parathyroid Hormone (PTH) 40 15 - 65 pg/mL 12/29/2024 6:50 PM EST [facility] Blood (Blood) Venipuncture / Unknown 12/29/2024 9:33 AM EST 12/29/2024 9:34 AM EST Eloisa Jolly MD LAB BLOOD BKR ORDERABL ES Final Result [facility] [address] [place] [address] * DEXA SCAN (12/07/2023 10:10 AM EDT) Historical Provider HEALTH MAINTENANCE Final Result from Last 3 Months or Most Recently Relevant to Health Maintenance Insurance MEDICARE PART A & B [employer] MEDEX SUPPLEMENT MEDICARE PART A & B [employer] CROSS MEDEX SUPPLEMENT MEDICARE PART A & B [employer] MEDEX SUPPLEMENT MEDICARE PART A & B [employer] MED[employer] SUPPLEMENT MEDICARE PART A & B [employer] MEDEX SUPPLEMENT MEDICARE PART A & B [facility] MEDEX SUPPLEMENT MEDICARE PART A & B [employer] MED[employer] SUPPLEMENT MEDICARE PART A & B [employer] MEDEX SUPPLEMENT MEDICARE PART A & B [employer]OSS MEDEX SUPPLEMENT Care Teams Gi Asst Relationship Specialty Start Date End Date Milady Miranda MD [address] [place] [address] PCP - General Internal Medicine 06/15/22 Additional Source Comments The information contained in this document represents components of the legal health record. It is not the complete legal health record.[facility]
== END 2025-02-07 11:58 | disposition home or self-care (01) ==
LOC: HO.HMCC 10:41
PROVIDERS: PCP Internal Medicine; Visit Provider Internal Medicine
DX: M81.0 Age-related osteoporosis without current pathological fracture (principal); I10 Essential (primary) hypertension; E78.5 Hyperlipidemia, unspecified

== ENCOUNTER → 2025-02-07 10:40 | Outpatient (BNVA) | payer MEDICARE, SELFPAY | PROVIDERS: PCP Internal Medicine; Visit Provider Internal Medicine | DX: M81.0 Age-related osteoporosis without current pathological fracture (principal); I10 Essential (primary) hypertension; E78.5 Hyperlipidemia, unspecified; Z87.311 Personal history of (healed) other pathological fracture | CPT/HCPCS: 99212 ==